=== PATIENT | female | born 1945 | race Caucasian/White ===

== ENCOUNTER 2020-06-06 16:14 | Emergency (ER) | payer MEDICARE, SELFPAY ==
[2020-06-06 16:49] VITALS: BP 130/74; PULSE 85; RESP 18; TEMP 36.6; O2SAT 96; BMI 42.0
[2020-06-06 17:57] VITALS: BP 129/79; PULSE 86; RESP 18; TEMP 36.7; O2SAT 96
--- NOTE | 2020-06-06 18:02 | PC.NURSE ---
patient a&ox3, neuro intact, vss, pt states she was moving a large chair and lost her balance and fell, unsure if she had loc or not she just remembers falling then seeing lots of blood, pt has a posterior head lac not currently bleeding, pt awaits provider, will continue to monitor.
--- NOTE | 2020-06-06 18:45 | CT_ITS ---
EXAMINATION: CT HEAD WITHOUT CONTRAST CLINICAL INFORMATION: Pain after fall. COMPARISON: None. TECHNIQUE: Contiguous helical images of the brain were obtained without IV contrast. Multiplanar reconstructions were performed. DLP: 702 mGy-cm. FINDINGS: There are no pathologic extra-axial fluid collections. The lateral, third, fourth ventricles are nondilated and concordant with the appearance of the sulci. There is no evidence for acute intraparenchymal hemorrhage or infarct. There is neither mass nor mass effect. There is no shift of midline structures. The paranasal sinuses and mastoid air cells are clear. There are no osseous lesions. CT/CT head/brain wo con IMPRESSION: No evidence for acute intracranial injury. Automated exposure control (Care Dose) Adjustment of the mA and/or kv according to patient size (this includes techniques or standardized protocols for targeted exams where dose is matched to indication / reason for exam; i.e. extremities or head).
--- NOTE | 2020-06-06 18:48 | ED_ITS ---
HPI - General Adult General Chief complaint: Fall Stated complaint: fall Time Seen by Provider: 06/06/20 18:34 History of Present Illness HPI narrative: 74-year-old female who presents to the emergency department for evaluation of fall and head injury. The patient states that she has trouble with her balance is not uncommon for her lose her balance and fall. She states that around 2:30 p.m. she lost her balance and fell backwards striking her head on a shelf. She is uncertain if she had any loss of consciousness. She was bleeding from her scalp. She states that she was seen at her doctor's office and was referred to emergency department for further evaluation of her head inju ry. She states since the fall she has had a mild headache which she describes as a constant, pressure which is elgn-yr-pusiyrwd in intensity, she denied nausea, vomiting, numbness, weakness associated with her headache. The patient states that her last tetanus shot was greater than 5 years prior. She states that she was not ill in any way prior to losing her balance. Related Data Allergies Allergy/AdvReac Type Severity Reaction Status Date / Time codeine [CODEINE] Allergy Intermediate NAUSEA & Unverified 03/24/20 16:34 VOMITING oxycodone [From PERCOCET] Allergy Intermediate NAUSEA & Unverified 03/24/20 16:34 VOMITING penicillin V Allergy Unknown GI cramps Unverified 09/30/19 00:00 Penicillins AdvReac Intermediate ABD. PAIN Unverified 03/24/20 16:34 EGGS Allergy Unknown Uncoded 08/20/14 00:00 eggs AdvReac Unknown GI cramps Uncoded 09/30/19 00:00 Review of Systems Review of Systems: Yes all other systems are reviewed and are negative Constitutional: Constitutional: Reports as per HPI Eyes: Eyes: Reports as per HPI ENT: Reports as per HPI Cardiovascular: Cardiovascular: Reports as per HPI Respiratory: Respiratory: Reports as per HPI Gastrointestinal: Gastrointestinal: Reports as per HPI Genitourinary: Genitourinary: Reports as per HPI Musculoskeletal: Musculoskeletal: Reports as per HPI Integumentary/Breasts: Skin/Breast: Reports as per HPI Neurologic: Reports as per HPI and Reports Abnormal speech present Psychiatric: Psychiatric: Reports as per HPI Allergic/Immunologic: Allergic/Immunologic: Reports as per HPI [facility] Past Medical History Medical History Depression Surgical History H/O section History of hysterectomy Hx of tonsillectomy Social History Social History Alcohol intake: never Smoked in Last 30 Days: No Use of substances other than those prescribed or required for medical reasons: No Advance Directives: No Advance Directives Information Provided: Yes Physical Exam Vital Signs: Vital Signs: Last Vital Signs Temp 98.1 F 06/06/20 17:57 Pulse 86 06/06/20 17:57 Resp 18 06/06/20 17:57 BP 129/79 06/06/20 17:57 Pulse Ox 96 06/06/20 17:57 Body Mass Index 42.0 Const: General: cooperative, no acute distress, alert and awake Orientation/consciousness: oriented to person and oriented to place Limitations: no limitations HENMT: Head: Yes normocephalic and Yes other (The subdural hematoma, dried blood in the patient's hair ) Ears: external ears normal Eyes: General: appearance normal, both eyes and all related structures Periorbital: periorbital findings normal Eyelids: Yes eyelids normal Conjunctivae: conjunctivae normal Sclerae: sclerae normal Corneas: corneas normal Pupils: Equal, round and reactive pupils present Direct Ophthalmoscopy: normal light reflex Neck: Neck: Yes normal visual inspection and Yes supple Lymphatic: no lymphadenopathy noted Chest: Chest palpation & inspection: normal inspection of the chest and normal palpation of entire chest wall Resp: Effort & Inspection: normal respiratory effort, abnormal respiratory pattern, no audible wheezes and no respiratory distress Auscultation: clear to auscultation bilaterally, no crackles, no rales, no rhonchi and no wheezes Cardio: Rate: regular rate Rhythm: regular rhythm Heart sounds: S1 normal heart sound present, S2 normal heart sound present and Murmur heart sound present GI: Inspection: No distended Palpation (GI): Soft to palpation, nontender, no guarding and No hepatosplenomegaly present Auscultation: normal bowel sounds : General: Yes no CVA tenderness Back/Spine/Pelvis: Back: no CVA tenderness Skin: General skin exam: no rashes or lesions noted Lesions: no lesions Rashes: no rashes Wounds: no wounds Neuro: General: oriented to person and oriented to place Cranial nerves: Yes CN's II-XII intact bilaterally and Yes Equal, round and reactive pupils present Cognition (Neuro): normal cognition Speech: Abnormal speech present Motor exam (neuro): 5/5 motor strength present throughout Extrem: General: Yes normal to inspection, Yes full ROM, Yes no pedal edema and Yes no calf tenderness Psych: Appearance: grossly normal Mental Status: mental status grossly normal Speech and movement: Clear speech present Affect: normal affect Thought process: Normal thought process present Course Course Course Narrative: 74-year-old female who presents emergency department for evaluation of a head injury that occurred around 2:30 p.m., patient does have dry blood on her scalp with no obvious laceration, she has had a ilul-lg-[id number] headache since the fall. Her neurologic exam is normal. I ordered a CT scan of the patient's head. She has no neck tenderness and I do not think that she has any distracting injuries therefore did not order a CT cervical spine. Patient was ordered to get a Tdap. 2025: CT scan of the patient's head revealed no acute findings. I went into the room to discuss this with the patient that she had left. The patient was in the waiting room and I did discuss the CT scan findings with the patient. The patient had called for her ride and she did not want to wait for printed instructions so I gave her verbal instructions. I told her that she should watch for signs of delayed bleeding which would include worsening headaches, nausea, vomiting, weakness, loss of balance. She is advised to take Tylenol for pain and use ice on her scalp to help reduce pain and swelling. I told her that if her scalp bleeds again she should return to the emergency department for evaluation. Discharge Plan Discharge Clinical Impression: CHI (closed head injury) Qualifiers: Encounter type: initial encounter Qualified Code(s): S09.90XA - Unspecified injury of head, initial encounter Fall Qualifiers: Encounter type: initial encounter Qualified Code(s): W19.XXXA - Unspecified fall, initial encounter Abrasion of scalp Qualifiers: Encounter type: initial encounter Qualified Code(s): S00.01XA - Abrasion of scalp, initial encounter Patient Disposition: Home, Self-Care Additional Instructions: The patient was given verbal instructions as documented in the chart
--- NOTE | 2020-06-06 19:04 | PC.NURSE ---
pt medicATED PER ORDER
--- NOTE | 2020-06-06 19:13 | PC.NURSE ---
patients posterior head was cleaned from blood, there is a small abrasion as well as an approx 1mm scrape/area that was previously bleeding, pt was medicated per order and is awaiting ct scan, will continue to monitor.
--- NOTE | 2020-06-06 20:26 | PC.NURSE ---
this nurse went into the patients room to obtain vitals, pt was not found in room and was seen by another nurse ambulating down the [place], the patient was looked for but has not been found.
== END 2020-06-06 20:40 | disposition home or self-care (01) ==
PROVIDERS: Emergency Provider Emergency Medicine Emergency Medical Services; PCP Internal Medicine
DX: S09.90XA Unspecified injury of head, initial encounter (principal); S00.01XA Abrasion of scalp, initial encounter; G44.309 Post-traumatic headache, unspecified, not intractable; M54.2 Cervicalgia; W01.0XXA Fall on same level from slipping, tripping and stumbling without subsequent striking against object, initial encounter; Y93.01 Activity, walking, marching and hiking; Y92.9 Unspecified place or not applicable; Y99.9 Unspecified external cause status
CPT/HCPCS: 70450; 90471; 90715; 99284

== ENCOUNTER 2020-08-31 09:57 | Outpatient (REF) | payer MEDICARE, SELFPAY ==
--- NOTE | ~2020-08-31 | MM_ITS ---
EXAMINATION: BONE DENSITOMETRY CLINICAL INDICATION: Osteopenia. COMPARISON: Previous BD dated 09/03/2017 and baseline BD dated 01/24/2001. TECHNIQUE: Using a [employer] DXA System (software version: 13.1) manufactured by [employer], dual-energy x-ray absorptiometry was performed of the lumbar spine and left hip. The images are of good technical quality. Summary results are attached. FINDINGS: AP SPINE L1-L4: Current: BMD 1.137 g/cm2, Z-score 0.4, T-score -0.4, normal, 3.2% decrease from previous, 7.9% increase from baseline (<5% change is not significant). Prior: BMD 1.174 g/cm2. Baseline: BMD 1.054 g/cm2. LEFT FEMUR, NECK: Current: BMD 0.875 g/cm2, Z-score 0.0, T-score -1.2, osteopenia. Prior: BMD 0.855 g/cm2. Baseline: BMD 0.893 g/cm2. LEFT FEMUR, TOTAL: Current: BMD 0.934 g/cm2, Z-score 0.4, T-score -0.6, normal, 0.2% decrease from previous, 1.3% decrease from baseline (<5% change is not significant). Prior: BMD 0.936 g/cm2. Baseline: BMD 0.946 g/cm2. IDENTIFIED RISK FACTORS: Early menopause, hysterectomy, osteoporosis, recurrent falls, right oophorectomy, secondary osteoporosis. HISTORY OF FRACTURE: No insufficiency fracture reported. MEDICATIONS: None listed. MM/XR DEXA axial skeleton IMPRESSION: 1. DIAGNOSIS: Osteopenia based on the lowest T-score value of -1.2 in the femoral neck applying World Health Organization criteria. 2. 10-YEAR FRACTURE RISK PREDICTION, FRAX: Major osteoporotic fracture (clinical spine, forearm, hip or shoulder) 9.0%. Hip fracture 1.3%. 3. Treatment Recommendations: NOF guidelines recommend consideration for treatment in postmenopausal women and men age 50 and older presenting with the following: -A hip or vertebral (clinical or morphometric) fracture. -T-score less than or equal to -2.5 at the femoral neck or spine after appropriate evaluation to exclude secondary causes. -Low bone mass at the hip or spine and a 10-year fracture probability by FRAX of greater than or equal to 3% for hip fracture or greater than or equal to 20% for major osteoporotic fracture based on the [place] adapted WHO algorithm. 4. Other Recommendations: All treatment decisions require clinical judgment and consideration of individual patient factors, including patient preferences, comorbidities, previous drug use, risk factors not captured in the FRAX model (e.g. frailty, falls, vitamin D deficiency, increased bone turnover, interval significant decline in bone density) and possible under or overestimation of fracture risk by FRAX. Additional medical evaluation for secondary cause of low bone mineral density may be appropriate. FUTURE SCAN RECOMMENDATION: People with diagnosed cases of osteoporosis or at high risk for fracture should have regular bone mineral density tests. For patients eligible for Medicare, routine testing is allowed once every 2 years. The testing frequency can be increased to one year for patients who have rapidly progressing disease, those who are receiving or discontinuing medical therapy to restore bone mass, or have additional risk factors.
--- NOTE | ~2020-08-31 | MM_ITS ---
EXAMINATION: MM SCREENING DIGITAL BREAST TOMOSYNTHESIS, BILATERAL CLINICAL INFORMATION: Screening. Asymptomatic. The lifetime risk of breast cancer based on the Tyrer-Cuzick Model is 2%. COMPARISON: Mammography: 03/20/2019, 03/12/2018, 11/01/2016 TECHNIQUE: Digital breast tomosynthesis is performed in both the craniocaudal and mediolateral oblique views along with computer-aided detection (CAD). Synthesized 2D images are generated from the tomosynthesis. FINDINGS: There are scattered areas of fibroglandular density (ACR BI-RADS breast composition Category b). Parenchymal pattern is similar to prior studies. There is biopsy clip marker again noted anterior 6:30 o'clock right breast. Dermal lesion again seen posterior 6:00 right breast. Neither breast shows interval mass or architectural abnormality or abnormal calcifications. No significant changes. MM/MM tomosynthesis screening BI IMPRESSION: No mammographic evidence of malignancy. ASSESSMENT: BI-RADS 2: Benign RECOMMENDATION: Routine annual mammography screening. This patient's information was entered into a reminder system with a target due date for their next mammogram.
== END 2020-08-31 09:58 | disposition home or self-care (01) ==
LOC: HO.MAMMO 09:57
PROVIDERS: PCP Internal Medicine; Visit Provider Internal Medicine
DX: Z12.31 Encounter for screening mammogram for malignant neoplasm of breast (principal); M85.852 Other specified disorders of bone density and structure, left thigh; Z78.0 Asymptomatic menopausal state; Z90.710 Acquired absence of both cervix and uterus; Z90.721 Acquired absence of ovaries, unilateral; Z91.81 History of falling
CPT/HCPCS: 77063; 77067; 77080

== ENCOUNTER 2020-09-01 09:04 | Outpatient (REF) | payer MEDICARE, SELFPAY ==
[2020-09-01 11:12] LABS: MANUAL DIFF FLAG NO
[2020-09-01 11:21] LABS: Basophils Absolute Auto 0.1 X10*3/uL (0.0-0.2); Basophils Percent Auto 1.2 % (0-2); Eosinophils Absolute Auto 0.2 X10*3/uL (0.0-0.4); Eosinophils Percent Auto 3.4 % (0-4); Hematocrit 38.9 % (37-47); Hemoglobin 12.6 g/dl (12.0-16.0); Imm Gran Abs Auto 0.03 X10*3/uL (0.00-0.03); Imm Gran Pct Auto 0.5 % (0.0-0.4); Lymphocytes Absolute Auto 1.4 X10*3/uL (1.2-4.9); Lymphocytes Percent Auto 24.3 % (20-40); Mean Corpuscular HGB Conc 32.4 g/dl (31.0-35.0); Mean Corpuscular Hemoglobin 28.6 pg (27.0-33.0); Mean Corpuscular Volume 88.4 fL (80-98); Mean Platelet Volume 10.8 fL (9.4-12.3); Monocytes Absolute Auto 0.3 X10*3/uL (0.1-1.2); Monocytes Percent Auto 5.1 % (2-11); Neutrophils Absolute Auto 3.8 X10*3/uL (2.0-8.3); Neutrophils Percent Auto 65.5 % (45-73); Platelet Count 237 X10*3/uL (160-400); Red Cell Distribution Width 14.4 % (11.0-16.0); White Blood Count 5.8 X10*3/uL (4.8-10.8)
[2020-09-01 11:59] LABS: Alanine Aminotransferase 10 U/L (0-31); Anion Gap 12 (12-20); Aspartate Amino Transferase 14 U/L (5-31); Blood Urea Nitrogen 21 mg/dL (9-16); Calcium 8.9 mg/dL (8.4-10.2); Carbon Dioxide 28 mmol/L (22-29); Chloride 106 mmol/L (96-108); Cholesterol 256 mg/dL; Estimated Glomerular Filt Rate 47; Glucose Fasting 94 mg/dL (60-99); HDL Cholesterol 64 mg/dL; LDL Cholesterol Calculated 167 mg/dl; Potassium 4.5 mmol/L (3.3-5.1); Sodium 141 mmol/L (135-145); Triglycerides 125 mg/dL
[2020-09-01 12:03] LABS: Vitamin D 25-OH Total 31.2 ng/mL (>30)
== END 2020-09-01 09:05 | disposition home or self-care (01) ==
LOC: HO.HMGCLDS 09:04
PROVIDERS: PCP Internal Medicine; Visit Provider Internal Medicine
DX: Z00.01 Encounter for general adult medical examination with abnormal findings (principal); D12.6 Benign neoplasm of colon, unspecified; E78.5 Hyperlipidemia, unspecified; I10 Essential (primary) hypertension
CPT/HCPCS: 36415; 80048; 80061; 82306; 84450; 84460; 85025

== ENCOUNTER 2023-01-04 07:21 | Outpatient (REF) | payer MEDICARE, SELFPAY ==
[2023-01-04 11:27] LABS: MANUAL DIFF FLAG NO
[2023-01-04 11:43] LABS: Basophils Absolute Auto 0.1 X10*3/uL (0.0-0.2); Eosinophils Absolute Auto 0.1 X10*3/uL (0.0-0.4); Eosinophils Percent Auto 1.8 % (0-4); Hematocrit 40.6 % (37.0-47.0); Imm Gran Abs Auto 0.05 X10*3/uL (0.00-0.03); Imm Gran Pct Auto 0.7 % (0.0-0.4); Lymphocytes Absolute Auto 1.7 X10*3/uL (1.2-4.9); Lymphocytes Percent Auto 25.8 % (20-40); Mean Corpuscular Hemoglobin 27.6 pg (27.0-33.0); Mean Corpuscular Volume 86.2 fL (80.0-98.0); Mean Platelet Volume 10.8 fL (9.4-12.3); Monocytes Absolute Auto 0.4 X10*3/uL (0.1-1.2); Neutrophils Absolute Auto 4.3 x10*3/uL (2.0-8.3); Neutrophils Percent Auto 64.7 % (45-73); Platelet Count 277 X10*3/uL (160-400); Red Blood Count 4.71 X10*6/uL (4.20-5.50); Red Cell Distribution Width 14.9 % (11.0-16.0); White Blood Count 6.7 X10*3/uL (4.8-10.8)
[2023-01-04 12:14] LABS: Alanine Aminotransferase 15 U/L (0-31); Albumin Level 3.9 g/dL (3.5-5.0); Alkaline Phosphatase 76 U/L (39-117); Anion Gap 14 (12-20); Aspartate Amino Transferase 17 U/L (5-31); Bilirubin Total 1.2 mg/dL (0.0-1.0); Blood Urea Nitrogen 17 mg/dL (9-16); Calcium 9.6 mg/dL (8.4-10.2); Carbon Dioxide 26 mmol/L (22-29); Chloride 104 mmol/L (96-108); Cholesterol 207 mg/dL; Estimated Glomerular Filt Rate 56; Glucose Fasting 104 mg/dL (60-99); HDL Cholesterol 53 mg/dL; LDL Cholesterol Calculated 129 mg/dl; Potassium 4.9 mmol/L (3.3-5.1); Sodium 139 mmol/L (135-145); Total Protein 7.2 g/dL (6.5-8.0); Triglycerides 126 mg/dL
[2023-01-04 12:31] LABS: TSH reflex Free T4 2.72 uIU/mL (0.32-4.0); Vitamin D 25-OH Total 38.5 ng/mL (>30)
[2023-01-04 12:44] LABS: Folate 9.6 ng/mL (> or = 4.0); Vitamin B12 331 pg/mL (200-900)
== END 2023-01-04 07:22 | disposition home or self-care (01) ==
LOC: HO.HMGCLDS 07:21
PROVIDERS: PCP Internal Medicine; Visit Provider Internal Medicine
DX: Z00.01 Encounter for general adult medical examination with abnormal findings (principal); E66.9 Obesity, unspecified; E78.5 Hyperlipidemia, unspecified; F32.9 Major depressive disorder, single episode, unspecified; G89.29 Other chronic pain; M85.852 Other specified disorders of bone density and structure, left thigh; R26.89 Other abnormalities of gait and mobility; R29.6 Repeated falls; R42 Dizziness and giddiness; Z78.0 Asymptomatic menopausal state
CPT/HCPCS: 36415; 80053; 80061; 82306; 82607; 82746; 84443; 85025

== ENCOUNTER 2023-03-27 08:27 | Outpatient (AMB) | payer MEDICARE, SELFPAY ==
--- NOTE | 2023-03-27 08:46 | A.OFFPC_ITS ---
Vital Signs 03/27/23 08:47 Height 5 ft 2 in Weight 212 lb BMI 38.8 BP 112/70 Blood Pressure Location Lt brachial Position Sitting Pulse 75 Pulse Source Pulse Oximeter Pulse Oximetry (%) 97 Oxygen Delivery Method Room Air Intake Visit Reasons: Annual PE Intake Note: Pt is here today for her PE Allergies egg Allergy (Unknown, Verified 03/27/23 09:03) gi cramps penicillin V Allergy (Unknown, Verified 03/27/23 09:03) GI cramps codeine [CODEINE] Adverse Reaction (Intermediate, Verified 03/27/23 09:03) NAUSEA & VOMITING oxycodone [From PERCOCET] Adverse Reaction (Intermediate, Verified 03/27/23 09:03) NAUSEA & VOMITING Penicillins Adverse Reaction (Intermediate, Verified 03/27/23 09:03) ABD. PAIN Medication List - Last Reconciled 03/27/23 by Annie Ulrich MD No Known Home Meds Tobacco use date assessed: 03/27/23 Fall risk assessment: 1 Fall in past year Last assessed Fall Risk: 03/27/23 Dental Screening Dental Screen Date: 03/27/23 Did you have a dental visit in the last 12 months?: No Was dental information given to patient?: Patient declined HPI Annual PE HPI Details 77-year-old lady here today for her phys ical exam. She has osteopenia in her left femoral neck, last seen on bone density in 2020, no history of fractures. Up To date with her screening mammogram, last done 2021, due again later this year. She is up-to-date with her screening colonoscopy done by Dr. Paige in 2016 due again in 2026. Already received her Prevnar 20, COVID vaccines, due for her booster and flu shot, up-to-date with Tdap, never had shingles vaccine. She is of company today by her spouse who states that patient's memory has been declining, requesting a referral to see neurology for evaluation for possible beginning dementia. [facility] Medical History (Updated 03/27/23 @ 09:41 by Annie Ulrich MD) Mammogram declined Colonoscopy refused COVID-19 vaccine dose declined Refused influenza vaccine Weakness generalized Gait instability Chronic hip pain, bilateral Keeps losing balance Memory changes Obesity (BMI 30-39.9) Postmenopause Intolerance to BiPAP/CPAP Obstructive sleep apnea Daren of eye Osteoarthritis Tubular adenoma of colon Menopause Osteopenia of left hip Breast cancer screening by mammogram Positional lightheadedness Recurrent falls Dyslipidemia Depression Surgical History History of hysterectomy Hx of tonsillectomy H/O section Family History Father Tuberculosis Substance use disorder Mother Diabetes mellitus Maternal Grandmother Diabetes mellitus Maternal Grandfather Cancer Son No problems noted. Daughter No problems noted. Social History Housing: Apartment Alcohol intake: never Patient Tobacco Use Status: Former Tobacco user e-Cigarette/Vaping Use: Never Used Current occupational status: retired Cognitive needs: No Hearing needs: No Vision needs: Yes Questionnaire PHQ-9 Over the last 2 weeks, how often have you been bothered by any of the following problems? 1. Little interest or pleasure in doing things: several days 2. Feeling down, depressed, or hopeless: several days 3. Trouble falling or staying asleep, or sleeping too much: not at all 4. Feeling tired or having little energy: several days 5. Poor appetite or overeating: not at all 6. Feeling bad about yourself - or that you are a failure or have let yourself or your family down: not at all 7. Trouble concentrating on things, such as reading the newspaper or watching television: not at all 8. Moving or speaking so slowly that other people could have noticed. Or the opposite - being so fidgety or restless that you have been moving around a lot more than usual: not at all 9. Thoughts that you would be better off or of hurting yourself in some w ay: not at all Total score: 3 Depression Screening Interpretation: Positive Depression Screening Follow-up: Existing condition and Declines treatment Source: Developed by Drs. Sumeet Mendoza, Twyla Roth, Sav Vazquez and colleagues, with an educational marion from [email or web address]. Thrive Questionnaire Date Thrive assessed: 03/27/23 I am a: Patient What is your living situation today?: I have a steady place to live Within the past 12 months, did the food you bought not last and you didn't have the money to get more?: Never true Within the past 12 months, did you worry whether your food would run out before you got money to buy more?: Never true Do you have trouble paying for medicines?: No Do you have trouble getting transportation to medical appointments?: No Do you have trouble paying your heating and electricity bill?: No Do you have trouble taking care of your child, family member or friend?: No Do you have trouble with day-to-day activities such as bathing, preparing meals, shopping, managing finances, etc.?: No Are you currently unemployed and looking for a job?: No Are you interested in more education?: No AUDIT C Alcohol Use Questionnaire (AUDIT-C) 1. How often do you have a drink containing alcohol?: Never Total Score: 0 Review of Systems Const Reports no additional complaints Eyes Details: Followed by Dr. Sandoval Denies change in vision ENT Reports dizziness (When getting up from a sitting or lying position), Denies nasal congestion, Denies nasal discharge and Denies sore throat Card Denies palpitations and Denies dyspnea Resp Denies chest congestion, Denies cough and Denies dyspnea GI Denies abdominal pain, Denies change in bowel habits and Denies heartburn Denies hematuria, Denies urinary frequency, Denies difficulty voiding, Denies dysuria, Denies urinary incontinence, Denies urinary hesitancy and Denies urinary urgency Musc Reports abnormal gait (Unsteady gait), Reports arthralgias, Denies joint swelling, Denies loss of height and Reports stiffness Skin/Breast Denies lesions and Denies unusual bruising Neuro Reports abnormal gait (Unsteady gait), Reports dizziness (When getting up from a sitting or lying position), Denies focal weakness and Denies seizure-like activity Psych Reports as per HPI (Does not want to get further treatment or see a therapist) Endo Denies polydipsia, Denies polyuria and Denies palpitations Lorenzo/Lymph Denies easy bruising Aller/Immun Reports no additional complaints Physical exam (Primary Care) Vital Signs: Last Vital Signs Pulse 75 03/27/23 08:47 BP 112/70 03/27/23 08:47 Pulse Ox 97 03/27/23 08:47 Oxygen Delivery Method Room Air 03/27/23 08:47 BMI result Body Mass Index 38.8 BMI Assessment/Plan discussion: High BMI High, discussed plan: lifestyle, weight reduction, dietary and physical activity Tobacco/Smoking Status: Tobacco use Status Tobacco use date assessed 03/27/23 03/27/23 08:52 Patient Tobacco Use Status Former Tobacco user 03/27/23 08:52 e-Cigarette/Vaping Use Never Used 03/27/23 08:52 PHQ-9: PHQ-9 Score PHQ-9: Total score 3 03/31/23 23:25 Depression Screening Interpretation: Positive Depression Screening Follow-up: Existing condition and Declines treatment Thrive Assessment: Date of Thrive Assessment Date Thrive assessed 03/27/23 03/31/23 23:25 Const Other: Alert oriented x3, obese, ambulatory with assistance of a walker, accompanied by spouse Nutritional Appearance: obese Orientation/consciousness: patient oriented x3 HENMT Head: Yes normocephalic Ears: external ears normal, TM's normal bilaterally and EAC's normal General nose exam: Normal external nose present and No nasal discharge present Face and sinus: Yes face symmetric Mouth: Normal oral and palatal mucosa present and moist mucous membranes Eyes General: appearance normal, both eyes and all related structures Neck Neck: Yes full ROM, Yes no lymphadenopathy and Yes supple Chest Other: Refused exam Resp Effort & Inspection: normal respiratory effort and able to speak in complete sentences Auscultation: clear to auscultation bilaterally Cardio Other: S1-S2 present regular rate and rhythm GI Inspection: Yes obesity Palpation (GI): Soft to palpation, nontender, no guarding and no masses Auscultation: normal bowel sounds General: Yes no CVA tenderness Back/Spine/Pelvis Back: no CVA tenderness and No back tenderness Skin General skin exam: no rashes or lesions noted Neuro General: patient oriented x3, tone normal, moves all extremities, no focal motor deficits and CN's II-XI intact bilaterally Gait exam (Neuro): Wide-based gait present Extrem General: Yes full ROM, Yes no joint enlargement and Yes no calf tenderness Psych Appearance: grossly normal and well kempt Mental Status: mental status grossly normal Speech and movement: Normal speech and movement present Affect: normal affect Attitude: cooperative Thought process: Normal thought process present Results Reviewed Results Reviewed: ENTERED: 01/04/23 [facility]: ORDERED: CMP Fast, Lipid Panel, Vitamin D 25-OH, TSH Rflx Test Result Flag Reference Site Sodium 139 135-145 mmol/L Potassium 4.9 3.3-5.1 mmol/L CL 104 96-108 mmol/L CO2 26 22-29 mmol/L Gap 14 12-20 BUN 17 H 9-16 mg/dL Creat 0.97 0.5-1.4 mg/dL EGFR 56 NOTE: For -[place] individuals, multiply the result by 1.210. Chronic Kidney Disease: Estimated GFR < 60 mL/min/1.73m2 Severe Kidney Disease: Estimated GFR < 15 mL/min/1.73m2 FBS 104 H 60-99 mg/dL A fasting glucose from 100-125 mg/dl is considered impaired (pre-diabetes). CA 9.6 # 8.4-10.2 mg/dL Total Bili 1.2 H 0.0-1.0 mg/dL AST (GOT) 17 5-31 U/L ALT (GPT) 15 0-31 U/L Protein, Total 7.2 6.5-8.0 g/dL Alb 3.9 3.5-5.0 g/dL Triglyceride 126 mg/dL Desirable Triglyceride: less than 150 mg/dL Borderline High Triglyceride 150-199 mg/dL High Triglyceride: 200-499 mg/dL Very High Triglyceride: greater than or equal to 5OO mg/dL Chol 207 mg/dL Desirable Cholesterol: less than 200 mg/dL Borderline High Cholesterol: 200-239 mg/dL High Cholesterol: greater than 239 mg/dL LDL Calculated 129 mg/dl Desirable LDL: less than 100 mg/dL Near Optimal/Above Optimal LDL: 110-129 mg/dL Borderline High LDL: 130-159 mg/dL High LDL: 160-189 mg/dL Very High LDL: greater than or equal to 190 mg/dL HDL 53 mg/dL Desirable HDL: greater than 40 mg/dL Note: This HDL assay may give artificially low results in patients with liver disease. Alk Phos 76 39-117 U/L Vit D 25-OH Tot 38.5 >30 ng/mL Health Based Reference Values* < 20 ng/mL Deficient 20-30 ng/mL Insufficient > 30 ng/mL Sufficient *Vivian LEWIS. N Engl J Med. 2007;357:266-280 Care must be taken in interpreting Vitamin D results from different laboratories and methodologies. Published data demonstrated that results from patients undergoing hemodialysis may show a negative bias when tested with various automated 25-OH vitamin D assays when compared to LC-MS/MS. When testing samples from patients whose predominant f orm of Vitamin D is Vitamin D2, such as patients receiving Vitamin D2 supplementation, results that are subtherapeutic should be confirmed with another method such as LC-MS/MS. TSH 2.72 0.32-4.0 uIU/mL ENTERED: 01/04/[address] [facility] [address]: ORDERED: CBC Auto Diff Test Result Flag Reference Site WBC 6.7 4.8-10.8 X10*3/uL RBC 4.71 4.20-5.50 X10*6/uL HGB 13.0 12.0-16.0 g/dl HCT 40.6 37.0-47.0 % MCV 86.2 80.0-98.0 fL MCH 27.6 27.0-33.0 pg MCHC 32.0 31.0-35.0 g/dl RDW 14.9 11.0-16.0 % PLT 277 160-400 X10*3/uL Assessment and Plan Assessment & Plan (1) Annual visit for general adult medical examination with abnormal findings: Code(s): Z00.01 - Encounter for general adult medical examination with abnormal findings Plan: Reviewed results of recent labs with patient. Recommended dental visit every [address] Sandoval regularly for her eye exam. Take adequate calcium in diet and vitamin-D 3 at 2000 IU per cap once a day, in addition to weight- bearing exercises to help maintain good muscle tone and weight control. Patient refusing to do any further screening for colonoscopy mammogram or bone density, and does not want to get any more vaccinations. (2) Memory changes: Code(s): R41.3 - Other amnesia Plan: Has been having changes in her memory, forgetting things/dates, which others have been noticing already. 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 Code(s): H35.369 - Drusen (degenerative) of macula, unspecified eye (6) Osteoarthritis: Code(s): M19.90 - Unspecified osteoarthritis, unspecified site (7) Osteopenia of left hip: Code(s): M85.852 - Other specified disorders of bone density and structure, left thigh (8) Gait instability: Code(s): R26.81 - Unsteadiness on feet (9) Depression: Comment: Declines taking any medication or seeing a therapist Code(s): F32.9 - Major depressive disorder, single episode, unspecified Plan: Patient refusing to take any medications or referral for counseling (10) Refused influenza vaccine: Code(s): Z28.21 - Immunization not carried out because of patient refusal (11) COVID-19 vaccine dose declined: Code(s): Z28.21 - Immunization not carried out because of patient refusal (12) Colonoscopy refused: Code(s): Z53.20 - Procedure and treatment not carried out because of patient's decision for unspecified reasons (13) Mammogram declined: Code(s): Z53.20 - Procedure and treatment not carried out because of patient's decision for unspecified reasons (14) Obesity (BMI 30-39.9): Code(s): E66.9 - Obesity, unspecified (15) Advanced directives, counseling/discussion: Code(s): Z71.89 - Other specified counseling Plan: Initiated the conversation about Advanced Directives. Advanced Directives help patients prepare for current and future decisions about their medical treatment and place of care. Discussed with patient that it is a process where a patients current condition and prognosis are reviewed, their wishes for information regarding their illness are elicited, and likely medical dilemmas are presented and options discussed. Healthcare proxy and MOLST form completed today. These forms can be amended as needed, reviewed yearly and make changes as needed Orders: Referrals Neurology Referral R41.3 - Other amnesia Coding Level of Care Code Est Pt Prev Care >65y(14894) Diagnoses Annual visit for general adult medical examination with abnormal findings Z00.01 Memory changes R41.3 Intolerance to BiPAP/CPAP Obstructive sleep apnea G47.33 Drusen of eye H35.369 Osteoarthritis M19.90 Osteopenia of left hip M85.852 Gait instability R26.81 Depression F32.9 Refused influenza vaccine Z28.21 COVID-19 vaccine dose declined Z28.21 Colonoscopy refused Z53.20 Mammogram declined Z53.20 Obesity (BMI 30-39.9) E66.9 Advanced directives, counseling/discussion Z71.89 Additional Codes PHQ-9 - 71425 - PHQ-9 Billing: ([id number])
[2023-03-27 08:47] VITALS: BP 112/70; PULSE 75; O2SAT 97; BMI 38.8
== END 2023-03-27 09:49 | disposition home or self-care (01) ==
PROVIDERS: Visit Provider Internal Medicine
DX: Z00.00 Encounter for general adult medical examination without abnormal findings (principal); R41.3 Other amnesia; G47.33 Obstructive sleep apnea (adult) (pediatric); F32.9 Major depressive disorder, single episode, unspecified; M19.90 Unspecified osteoarthritis, unspecified site; H35.369 Drusen (degenerative) of macula, unspecified eye; M85.852 Other specified disorders of bone density and structure, left thigh; R26.81 Unsteadiness on feet; Z28.21 Immunization not carried out because of patient refusal; Z53.20 Procedure and treatment not carried out because of patient's decision for unspecified reasons; E66.9 Obesity, unspecified; Z71.89 Other specified counseling
CPT/HCPCS: 99397

== ENCOUNTER → 2023-10-14 12:28 | Outpatient (BNVA) | payer MEDICARE, SELFPAY | PROVIDERS: PCP Internal Medicine; Visit Provider Psychiatry & Neurology Neurology ==

== ENCOUNTER 2023-11-19 13:21 | Emergency (ER) | payer MEDICARE, SELFPAY ==
[2023-11-19 13:52] VITALS: BP 121/68; PULSE 65; RESP 16; TEMP 36.5; O2SAT 95; BMI 37.2
--- NOTE | 2023-11-19 14:26 | ED.PSYCH ---
HPI - Psych General Chief Complaint: Psychiatric Symptoms Stated Complaint: SEC 12,SI W/PLAN PER EMS Time Seen by Provider: 11/19/23 14:02 Source: patient, EMS and police ( under section 12) Mode of arrival: EMS Limitations: no limitations History of Present Illness HPI Narrative: 77-year-old female with no significant past medical history patient had a previous evaluation in increasing cognitive deficits and depressive symptoms in the past patient was brought in by EMS under section 12 that was applied by the police for patient is gesturing SI, threatening to stab with a knife, patient in the emergency department declined any suicidal thought or attempt. Patient usually lives home functional use walker for ambulation home, patient lives home with her partner. Patient declined any visual or auditory hallucination. Related Data Home Medications ?Medication ?Instructions ?Recorded ?Confirmed bupropion HCl 300 mg 24 hr tablet, 300 mg PO QAM 10/14/23 extended release quetiapine 25 mg tablet 25 mg PO DAILY 10/14/23 sertraline 50 mg tablet 100 mg PO DAILY 10/14/23 Previous Rx's ?Medication ?Instructions ?Recorded nitrofurantoin 100 mg PO Q12H 7 days #14 caps 11/19/23 monohydrate/macrocrystals 100 mg capsule (Macrobid) Allergies Allergy/AdvReac Type Severity Reaction Status Date / Time egg Allergy Unknown gi cramps Verified 11/19/23 13:59 penicillin V Allergy Unknown GI cramps Verified 11/19/23 13:59 codeine [CODEINE] AdvReac Intermediate NAUSEA & Verified 11/19/23 13:59 VOMITING oxycodone [From PERCOCET] AdvReac Intermediate NAUSEA & Verified 11/19/23 13:59 VOMITING Penicillins AdvReac Intermediate ABD. PAIN Verified 11/19/23 13:59 Review of Systems Review of Systems: All other systems are reviewed and are negative Constitutional: Reports as per HPI and Reports no additional constitutional complaints Eyes: Reports as per HPI and Reports no additional eye complaints Reports system reviewed and no additional complaints, except as documented Cardiovascular: Reports as per HPI and Reports no additional cardiovascular complaints Respiratory: Reports as per HPI and Reports no additional respiratory complaints Gastrointestinal: Reports as per HPI and Reports no additional gastrointestinal complaints Genitourinary: Reports no additional female genitourinary complaints Musculoskeletal: Reports no additional musculoskeletal complaints Skin/Breast: Reports system reviewed and no additional complaints, except as docu Psychiatric: Reports no additional psychiatric complaints Endocrine: Reports no additional endocrine complaints Hematologic/Lymphatic: Reports no additional hematologic/lymphatic complaints Allergic/Immunologic: Reports no additional allergic/immunologic complaints Reports system reviewed and no additional complaints, except as documented and Reports Abnormal speech present [facility] Past Medical History Medical History Mammogram declined Colonoscopy refused COVID-19 vaccine dose declined Refused influenza vaccine Weakness generalized Gait instability Chronic hip pain, bilateral Keeps losing balance Memory changes Obesity (BMI 30-39.9) Postmenopause Intolerance to BiPAP/CPAP Obstructive sleep apnea Drusen of eye Osteoarthritis Tubular adenoma of colon Menopause Osteopenia of left hip Breast cancer screening by mammogram Positional lightheadedness Recurrent falls Dyslipidemia Depression Surgical History History of hysterectomy Hx of tonsillectomy H/O section Family History Family History Father Tuberculosis Substance use disorder Mother Diabetes mellitus Maternal Grandmother Diabetes mellitus Maternal Grandfather Cancer Son No problems noted. Daughter No problems noted. Social History Social History Housing: Apartment Alcohol intake: never Patient Tobacco Use Status: Former Tobacco user Smoked in Last 30 Days: No e-Cigarette/Vaping Use: Never Used Use of substances other than those prescribed or required for medical reasons: No Advance Directives: No Advance Directives Information Provided: Yes Current occupational status: retired Cognitive needs: No Hearing needs: No Vision needs: Yes Physical Exam Vital Signs: Vital Signs: Last Vital Signs Temp 97.7 F 11/19/23 13:52 Pulse 65 11/19/23 13:52 Resp 16 11/19/23 13:52 BP 121/68 11/19/23 13:52 Pulse Ox 95 11/19/23 13:52 O2 Del Method Room Air 11/19/23 13:52 BMI result Body Mass Index 37.2 Vital signs have been reviewed and appear to be correct. Blood pressure elevated. Heart rate normal. Respiratory rate normal. Temperature normal. Oxygen saturation normal. Appearance: Alert. Oriented X3. No acute distress. Head: Normal external exam. Normocephalic. Atraumatic. No Mcgowan signs noted. No raccoon eyes noted Eyes: PERRLA. EOMI. Conjunctiva and sclera normal. Eyelids normal. ENT: TM's Normal. Pharynx normal. Uvula midline. Moist mucous membranes. No trismus noted. No drooling noted. No muffled voice noted. Neck: Normal inspection. Neck supple. FROM. No adenopathy. Thyroid Normal. No meningeal signs. No neck mass noted. CVS: Normal heart rate and rhythm. Heart sound normal. No murmurs noted. Pulses normal throughout. Respiratory: No respiratory distress. Painless inspiration. Breath sounds normal. No wheezes/rales/rhonchi noted. Chest nontender. No accessory muscle usage noted or decreased air movement noted. Abdomen: Soft and nontender. Bowel sounds normal in all 4 quadrants. No distention noted. No organomegaly noted. No visible injury noted. Back: No CVA tenderness. Full range of motion noted. Skin: Skin warm and dry. Normal skin color. Normal skin turgor. No rashes/lesions/lacerations noted. Extremities: No lower extremity edema. Extremities exhibit normal range of motion. Extremities nontender. Neuro: Oriented X 3. Cranial nerve exam: II-XII are grossly intact No motor deficit. No sensory deficit. Reflexes normal. Patient Orientation: Person, Place, Time and Situation, okay hygiene and grooming. Fair eye contact, attentive, no tics or tremors. Level of Consciousness: Awake, Appropriate and Alert Patient Behavior: Appropriate, Guarded, Cooperative and Anxious Mood Description: Constricted, Blunted and Apprehensive Affect Description: Constricted, Blunted and Apprehensive Patient Cognition Impaired: No Ability to Follow Directions: Excellent Speech Pattern: Clear, Appropriate and Spontaneous Speech, nonpressured, spontaneous with regular rate and rhythm, normal volume and prosody. No dysarthria. Memory Description: Intact, Immediate Intact and Short Term Intact Hallucinations: None Delusions: Not Present Thought Process: Intact Thought Content: positive for Intact, positive for Logical, denies Suicidal Ideation and denies Homicidal Ideation. Depressive Symptoms: Not present. Judgement and Insight: Limited but adequate. Course Reevaluation(s) Reevaluation #1: labs was reviewed and unremarkable, patient medically cleared, Uncomplicated UTI will start the patient on Macrobid Given the patient's penicillin allergy. will start patient on physician observation. Time: 16:30 Reevaluation #2: physician observation ended now, patient had a fall care team evaluation I have re-interviewed the patient patient feels safe to be discharged home waiting for her significant other to give her a ride to home, no SI, no HI, no AVH. Time: 18:19 Medications Administered Discontinued Medications Generic Name Dose Route Start Last Admin Trade Name Freq PRN Reason Stop Dose Admin Nitrofurantoin Macrocrystals 100 mg 11/19/23 16:29 11/19/23 17:07 Nitrofurantoin Monohyd/M-Cryst 100 Mg Capsule PO 11/19/23 16:30 100 mg BID ONE Administration Medical Decision Making Differential Diagnosis Differential Diagnoses: The differential diagnosis associated with the presentation includes ( Medical clearance, electrolyte derangement, severe anemia, UTI, acute psychosis, depression with SI.) Admission/Observation Consideration of admission/observation: Escalation of care including admission/observation considered Lab Data MDM Lab Attestation statement: I reviewed the patient's lab results. 11/19/23 15:24 11/19/23 15:24 Labs: Lab Results 11/19/23 11/19/23 Range/Units 15:23 15:24 WBC 7.2 (4.8-10.8) X10*3/uL RBC 4.27 (4.20-5.50) X10*6/uL Hgb 12.5 (12.0-16.0) g/dl Hct 37.6 (37.0-47.0) % MCV 88.1 (80.0-98.0) fL MCH 29.3 (27.0-33.0) pg MCHC 33.2 (31.0-35.0) g/dl RDW 14.4 (11.0-16.0) % Plt Count 256 (160-400) X10*3/uL MPV 9.9 (9.4-12.3) fL Immature Gran % (Auto) 0.3 (0.0-0.4) % Neut % (Auto) 68.9 (45-73) % Lymph % (Auto) 22.1 (20-40) % Greene % (Auto) 4.5 (2-11) % Eos % (Auto) 3.1 (0-4) % Baso % (Auto) 1.1 (0-2) % Lymph # (Auto) 1.6 (1.2-4.9) X10*3/uL Greene # (Auto) 0.3 (0.1-1.2) X10*3/uL Eos # (Auto) 0.2 (0.0-0.4) X10*3/uL Baso # (Auto) 0.1 (0.0-0.2) X10*3/uL Abs Immat Gran (auto) 0.02 (0.00-0.03) X10*3/uL Absolute Neuts (auto) 4.9 (2.0-8.3) x10*3/uL Absolute Nucleated RBC 0.000 (0.0-0.012) X10*3/uL Nucleated RBC % (auto) 0.0 (0.0-0.2) /100WBC Sodium 139 (135-145) mmol/L Potassium 3.7 (3.3-5.1) mmol/L Chloride 105 (96-108) mmol/L Carbon Dioxide 22 (22-29) mmol/L Anion Gap 16 (12-20) BUN 16 (9-16) mg/dL Creatinine 1.12 (0.5-1.4) mg/dL Estim Creat Clear Calc 46.8 Estimated GFR 47 Random Glucose 125 H (60-115) mg/dL Calcium 9.2 (8.4-10.2) mg/dL Total Bilirubin 0.4 (0.0-1.0) mg/dL Direct Bilirubin 0.1 (0.0-0.5) mg/dL AST 16 (5-31) U/L ALT 9 (0-31) U/L Alkaline Phosphatase 82 (39-117) U/L Troponin I High Sens 3.3 (<3.5-17.0) ng/L Total Protein 6.7 (6.5-8.0) g/dL Albumin 3.8 (3.5-5.0) g/dL Lipase 26 (8-78) U/L Urine Color Yellow Urine Appearance Turbid Urine pH 5.0 (5.0-9.0) Ur Specific [place] 1.020 (1.005-1.025) Urine Protein Negative (Neg-Trace) mg/dL Urine Glucose (UA) Negative (Negative) mg/dL Urine Ketones Negative (Negative) mg/dL Urine Blood Small (1+) H (Negative) Urine Nitrite Positive H (Negative) Ur Leukocyte Esterase Moderate (2+) H (Negative) Urine RBC 0-2 (0-2) /HPF Urine WBC 21-50 H (0-5) /HPF Urine WBC Clumps Present Ur Squamous Epith Cells >20 (0-2) /HPF Urine Bacteria 4+ (None Seen) Hyaline Casts 0-2 (0-2) /LPF Salicylates < 5.0 L (15-30) mg/dL Urine Opiates Screen Not Detected (Not Detect) Ur Buprenorphine Scrn Not Detected (Not Detect) ng/mL Ur Oxycodone Screen Not Detected (Not Detect) ng/mL Urine Methadone Screen Not Detected (Not Detect) ng/mL Urine Fentanyl Screen Not Detected (Not Detect) Acetaminophen < 3 (<30) mcg/mL Ur Barbiturates Screen Not Detected (Not Detect) Ur Phencyclidine Scrn Not Detected (Not Detect) Ur Amphetamines Screen Not Detected (Not Detect) U Benzodiazepines Scrn Not Detected (Not Detect) Urine Cocaine Screen Not Detected (Not Detect) U Marijuana (THC) Screen Not Detected (Not Detect) Ethyl Alcohol < 10 mg/dL Discharge Plan Discharge Clinical Impression: Acute UTI, Depression Patient Disposition: Home, Self-Care Instructions: Urinary Tract Infection in Women (DC), Depression (ED) Prescriptions: New nitrofurantoin monohyd/m-cryst [Macrobid] 100 mg capsule 100 mg PO Q12H 7 Days Qty: 14 0RF Rx Instructions: must administer with a meal/food No Action bupropion HCl 300 mg tablet extended release 24 hr 300 mg PO QAM quetiapine 25 mg tablet 25 mg PO DAILY sertraline 50 mg tablet 100 mg PO DAILY Rx Instructions: 2 tabs in the morning, 1/2 tab evening Interventions: [place]-Suicide Risk Severity Scale Last Done: 11/19/23 17:22 Print Language: Syriac
[2023-11-19 15:29] LABS: MANUAL DIFF FLAG NO
[2023-11-19 15:34] LABS: Appearance Urine Turbid; Color Urine Yellow; Glucose Urine UA Negative (Negative); Leukocyte Esterase Urine Moderate (2+) (Negative); Nitrite Urine Positive (Negative); UMIC TRIGGER UACC YES; Urine Blood Small (1+) (Negative); Urine Ketones Negative (Negative); Urine Protein Negative (Neg-Trace)
[2023-11-19 15:34] LABS: Basophils Absolute Auto 0.1 X10*3/uL (0.0-0.2); Basophils Percent Auto 1.1 % (0-2); Eosinophils Absolute Auto 0.2 X10*3/uL (0.0-0.4); Eosinophils Percent Auto 3.1 % (0-4); Hematocrit 37.6 % (37.0-47.0); Hemoglobin 12.5 g/dl (12.0-16.0); Imm Gran Abs Auto 0.02 X10*3/uL (0.00-0.03); Imm Gran Pct Auto 0.3 % (0.0-0.4); Lymphocytes Absolute Auto 1.6 X10*3/uL (1.2-4.9); Lymphocytes Percent Auto 22.1 % (20-40); Mean Corpuscular HGB Conc 33.2 g/dl (31.0-35.0); Mean Corpuscular Hemoglobin 29.3 pg (27.0-33.0); Mean Corpuscular Volume 88.1 fL (80.0-98.0); Mean Platelet Volume 9.9 fL (9.4-12.3); Monocytes Absolute Auto 0.3 X10*3/uL (0.1-1.2); Monocytes Percent Auto 4.5 % (2-11); Neutrophils Absolute Auto 4.9 x10*3/uL (2.0-8.3); Neutrophils Percent Auto 68.9 % (45-73); Platelet Count 256 X10*3/uL (160-400); Red Blood Count 4.27 X10*6/uL (4.20-5.50); Red Cell Distribution Width 14.4 % (11.0-16.0); White Blood Count 7.2 X10*3/uL (4.8-10.8)
[2023-11-19 15:42] LABS: Amphetamine Screen Urine Not Detected (Not Detect); Barbiturates, Urine Not Detected (Not Detect); Benzodiazepines Screen Urine Not Detected (Not Detect); Buprenorphine Scr Not Detected (Not Detect); Cannabinoid Screen Urine Not Detected (Not Detect); Cocaine Screen Urine Not Detected (Not Detect); Fentanyl, urine Not Detected (Not Detect); Methadone Screen, Urine Not Detected (Not Detect); Opiate Screen Urine Not Detected (Not Detect); Oxycodone Screen Urine Not Detected (Not Detect); Phencyclidine Screen Urine Not Detected (Not Detect)
[2023-11-19 15:48] LABS: Alanine Aminotransferase 9 U/L (0-31); Albumin Level 3.8 g/dL (3.5-5.0); Alkaline Phosphatase 82 U/L (39-117); Anion Gap 16 (12-20); Aspartate Amino Transferase 16 U/L (5-31); Bilirubin Direct 0.1 mg/dL (0.0-0.5); Bilirubin Total 0.4 mg/dL (0.0-1.0); Blood Urea Nitrogen 16 mg/dL (9-16); Calcium 9.2 mg/dL (8.4-10.2); Carbon Dioxide 22 mmol/L (22-29); Chloride 105 mmol/L (96-108); Creatinine Clr Calc Pharmacy 46.8; Estimated Glomerular Filt Rate 47; Ethanol < 10 mg/dL; Glucose Random 125 mg/dL (60-115); Lipase 26 U/L (8-78); Potassium 3.7 mmol/L (3.3-5.1); Sodium 139 mmol/L (135-145); Total Protein 6.7 g/dL (6.5-8.0)
[2023-11-19 15:50] LABS: Bacteria Urine 4+ (None Seen); Hyaline Casts Urine 0-2 /LPF (0-2); RBC Urine 0-2 /HPF (0-2); Squamous Epithelial Cell Urine >20 /HPF (0-2); UACC Culture Trigger YES; WBC Clumps Urine Present; WBC Urine 21-50 /HPF (0-5)
[2023-11-19 15:55] LABS: Troponin-I High Sensitivity 3.3 ng/L (<3.5-17.0)
[2023-11-19 16:26] LABS: Acetaminophen LAB < 3 mcg/mL (<30); Salicylate < 5.0 mg/dL (15-30)
[2023-11-19] MEDS: Nitrofurantoin Monohyd/M-Cryst 100 MG CAPSULE PO (17:07)
[2023-11-19 18:39] VITALS: BP 121/68; PULSE 65; RESP 16; TEMP 36.5; O2SAT 95
--- NOTE | 2023-11-20 15:39 | MHC.CARE ---
RAD Team emailed referral to CC. Will follow up tomorrow
--- NOTE | 2023-11-21 08:45 | MHC.CARE ---
Per [facility] intake they cannot accommodate a referral to therapy for this individual or assign her case due to her insurance. Message was relayed to the CARE team.
== END 2023-11-19 18:39 | disposition home or self-care (01) ==
PROVIDERS: Emergency Provider Emergency Medicine
DX: F32.A Depression, unspecified (principal); N39.0 Urinary tract infection, site not specified; R45.851 Suicidal ideations; Z04.6 Encounter for general psychiatric examination, requested by authority; Z65.3 Problems related to other legal circumstances; Z79.899 Other long term (current) drug therapy
CPT/HCPCS: 36415; 80048; 80076; 80143; 80179; 80307; 81001; 83690; 84484; 85025; 87086; 87088; 87186; 99284; S9485

== ENCOUNTER 2023-12-04 14:19 | Outpatient (AMB) | payer MEDICARE, SELFPAY ==
--- NOTE | 2023-12-04 14:21 | A.OFFVIS_ITS ---
Vital Signs 12/04/23 14:27 Height 5 ft 3 in Weight 218 lb 2 oz BMI 38.6 BP 116/70 Blood Pressure Location Rt brachial Position Sitting Pulse 71 Pulse Source Pulse Oximeter Pulse Oximetry (%) 97 Oxygen Delivery Method Room Air Intake Visit Reasons: INP-Amnesia/Dementia - Confirmed Intake Note: Patient presents for Amnesia and Dementia. Allergies egg Allergy (Unknown, Verified 12/04/23 14:26) gi cramps penicillin V Allergy (Unknown, Verified 12/04/23 14:26) GI cramps codeine [CODEINE] Adverse Reaction (Intermediate, Verified 12/04/23 14:26) NAUSEA & VOMITING oxycodone [From PERCOCET] Adverse Reaction (Intermediate, Verified 12/04/23 14:26) NAUSEA & VOMITING Penicillins Adverse Reaction (Intermediate, Verified 12/04/23 14:26) ABD. PAIN Medication List - Last Reconciled 12/04/23 by Helen Alfred MD bupropion HCl XL 300 mg PO QAM nitrofurantoin monohyd/m-cryst 100 mg (Macrobid) 100 mg PO Q12H 7 days quetiapine 25 mg PO DAILY sertraline 100 mg PO DAILY HPI Comments Details: 77y/o Right handed female comes for evaluation of memory issues. She reports memory issues that started about 5 years ago and has progressed . The memory issues are mostly short term recall. she misplaces things around the house, misses appointments, forgets conversations etc. she is alone today and is unable to give more details of her cognitive issues. she still take cares of her finances. she denies executive dysfunction. she is independent in all ADLs. she lives in her own apartment and her friend lives downstairs. She denies any known head injury. she denies anxiety. she is not very social . No known h/o dementia [facility] Medical History (Updated 12/04/23 @ 15:02 by Helen Alfred MD) Cognitive impairment Mammogram declined Colonoscopy refused COVID-19 vaccine dose declined Refused influenza vaccine Weakness generalized Gait instability Chronic hip pain, bilateral Keeps losing balance Memory changes Obesity (BMI 30-39.9) Postmenopause Intolerance to BiPAP/CPAP Obstructive sleep apnea Drusen of eye Osteoarthritis Tubular adenoma of colon Menopause Osteopenia of left hip Breast cancer screening by mammogram Positional lightheadedness Recurrent falls Dyslipidemia Depression Surgical History History of hysterectomy Hx of tonsillectomy H/O section Family History Father Tuberculosis Substance use disorder Mother Diabetes mellitus Maternal Grandmother Diabetes mellitus Maternal Grandfather Cancer Son No problems noted. Daughter No problems noted. Social History Housing: Apartment Alcohol intake: never Patient Tobacco Use Status: Former Tobacco user e-Cigarette/Vaping Use: Never Used Current occupational status: retired Cognitive needs: No Hearing needs: No Vision needs: Yes Review of Systems Neuro Reports confusion Psych Reports confusion Physical Exam Vital Signs: Last Vital Signs Pulse 71 12/04/23 14:27 BP 116/70 12/04/23 14:27 Pulse Ox 97 12/04/23 14:27 Oxygen Delivery Method Room Air 12/04/23 14:27 BMI result Body Mass Index 5.0 Const General: cooperative, comfortable and confusion Nutritional Appearance: obese Orientation/consciousness: confusion Eyes Pupils: Equal, round and reactive pupils present Neuro Other: MOCA- 19/30 General: moves all extremities, no focal motor deficits and confusion Cranial nerves: Yes Equal, round and reactive pupils present, Yes Bilaterally intact EOM present, Yes Nystagmus not present, Yes Normal facial strength present, Yes Midline tongue present and Yes Ability to bilaterally elevate shoulders present Cognition (Neuro): abnormal cognition Gait exam (Neuro): Scissors gait present, Steppage gait present and Assistive device used Motor exam (neuro): 5/5 motor strength present throughout and Normal motor muscle tone present throughout Deep tendon reflexes (DTR's): Right triceps reflex intensity grade: 1+, Left triceps reflex intensity grade: 1+, Rt Biceps (C5, C6): 1+, Left biceps reflex intensity grade: 1+, Right brachioradialis reflex intensity grade: 1+, Left brachioradialis reflex intensity grade: 1+, Right patellar reflex intensity grade: 0 and Left patellar reflex intensity grade: 0 Assessment & Plan Assessment & Plan (1) Cognitive impairment: Comment: early dementia , worsened by depression ? untreated sleep apnea Code(s): R41.89 - Other symptoms and signs involving cognitive functions and awareness Category: Medical Plan I will do MRI brain to evaluate . reviewed labs TSH and B12 were normal I will trial her on donepezil 10 mg 1/2 tab for 1 month and then 1 tab qd will refer to cognitive therapy Orders: Orders MR brain wo con w neuroquant Today R41.3 - Other amnesia Referrals Speech and Hearing Referral R41.89 - Other symptoms and signs involving cognitive functions and awareness Medications: New donepezil 1/2 tab qd for 4 weeks then 1 tabq d orally daily; 30 tabs 6RF Coding Level of Care Code New Pt Level 4 (21475) Diagnoses Cognitive impairment R41.89
[2023-12-04 14:27] VITALS: BP 116/70; PULSE 71; O2SAT 97; BMI 38.6
== END 2023-12-04 15:07 | disposition home or self-care (01) ==
PROVIDERS: PCP Internal Medicine; Visit Provider Psychiatry & Neurology Neurology
DX: R41.89 Other symptoms and signs involving cognitive functions and awareness (principal)
CPT/HCPCS: 99204

== ENCOUNTER → 2023-12-04 14:19 | Outpatient (BNVA) | payer MEDICARE, SELFPAY | PROVIDERS: PCP Internal Medicine; Visit Provider Psychiatry & Neurology Neurology | DX: R41.89 Other symptoms and signs involving cognitive functions and awareness (principal) | CPT/HCPCS: 99202 ==

== ENCOUNTER 2024-05-19 05:20 | Outpatient (REF) | payer MEDICARE, SELFPAY ==
[2024-05-19 05:22] LABS: MANUAL DIFF FLAG NO
[2024-05-19 05:43] LABS: Basophils Absolute Auto 0.1 X10*3/uL (0.0-0.2); Basophils Percent Auto 0.9 % (0-2); Eosinophils Absolute Auto 0.2 X10*3/uL (0.0-0.4); Eosinophils Percent Auto 4.4 % (0-4); Hematocrit 34.2 % (37.0-47.0); Hemoglobin 11.1 g/dl (12.0-16.0); Imm Gran Abs Auto 0.04 X10*3/uL (0.00-0.03); Imm Gran Pct Auto 0.8 % (0.0-0.4); Lymphocytes Absolute Auto 1.3 X10*3/uL (1.2-4.9); Lymphocytes Percent Auto 23.9 % (20-40); Mean Corpuscular HGB Conc 32.5 g/dl (31.0-35.0); Mean Corpuscular Hemoglobin 27.8 pg (27.0-33.0); Mean Corpuscular Volume 85.7 fL (80.0-98.0); Mean Platelet Volume 10.1 fL (9.4-12.3); Monocytes Absolute Auto 0.5 X10*3/uL (0.1-1.2); Monocytes Percent Auto 9.3 % (2-11); Neutrophils Absolute Auto 3.2 x10*3/uL (2.0-8.3); Neutrophils Percent Auto 60.7 % (45-73); Platelet Count 231 X10*3/uL (160-400); Red Blood Count 3.99 X10*6/uL (4.20-5.50); Red Cell Distribution Width 15.2 % (11.0-16.0); White Blood Count 5.3 X10*3/uL (4.8-10.8)
[2024-05-19 05:58] LABS: Alanine Aminotransferase 8 U/L (0-31); Albumin Level 3.4 g/dL (3.5-5.0); Alkaline Phosphatase 72 U/L (39-117); Anion Gap 15 (12-20); Aspartate Amino Transferase 24 U/L (5-31); Bilirubin Total 0.7 mg/dL (0.0-1.0); Blood Urea Nitrogen 16 mg/dL (9-16); Calcium 9.5 mg/dL (8.4-10.2); Carbon Dioxide 24 mmol/L (22-29); Chloride 103 mmol/L (96-108); Estimated Glomerular Filt Rate 55; Glucose Random 94 mg/dL (60-115); Potassium 4.2 mmol/L (3.3-5.1); Sodium 138 mmol/L (135-145); Total Protein 6.3 g/dL (6.5-8.0)
== END 2024-05-19 05:21 | disposition home or self-care (01) ==
LOC: HO.MMNH2L 05:20
PROVIDERS: Visit Provider Student in an Organized Health Care Education/Training Program
DX: S82.841A Displaced bimalleolar fracture of right lower leg, initial encounter for closed fracture (principal)
CPT/HCPCS: 36415; 80053; 85025

== ENCOUNTER 2024-05-25 05:47 | Outpatient (REF) | payer MEDICARE, SELFPAY ==
[2024-05-25 05:39] LABS: MANUAL DIFF FLAG NO
[2024-05-25 06:32] LABS: Anion Gap 14 (12-20); Blood Urea Nitrogen 12 mg/dL (9-16); Carbon Dioxide 21 mmol/L (22-29); Chloride 110 mmol/L (96-108); Estimated Glomerular Filt Rate 50; Glucose Random 87 mg/dL (60-115); Potassium 3.6 mmol/L (3.3-5.1); Sodium 141 mmol/L (135-145)
[2024-05-25 07:06] LABS: Basophils Absolute Auto 0.1 X10*3/uL (0.0-0.2); Eosinophils Absolute Auto 0.2 X10*3/uL (0.0-0.4); Eosinophils Percent Auto 4.9 % (0-4); Hematocrit 34.2 % (37.0-47.0); Hemoglobin 10.8 g/dl (12.0-16.0); Imm Gran Abs Auto 0.03 X10*3/uL (0.00-0.03); Imm Gran Pct Auto 0.6 % (0.0-0.4); Lymphocytes Absolute Auto 1.5 X10*3/uL (1.2-4.9); Lymphocytes Percent Auto 31.6 % (20-40); Mean Corpuscular HGB Conc 31.6 g/dl (31.0-35.0); Mean Corpuscular Hemoglobin 27.9 pg (27.0-33.0); Mean Corpuscular Volume 88.4 fL (80.0-98.0); Mean Platelet Volume 10.4 fL (9.4-12.3); Monocytes Absolute Auto 0.4 X10*3/uL (0.1-1.2); Monocytes Percent Auto 7.8 % (2-11); Neutrophils Absolute Auto 2.6 x10*3/uL (2.0-8.3); Neutrophils Percent Auto 54.1 % (45-73); Platelet Count 229 X10*3/uL (160-400); Red Blood Count 3.87 X10*6/uL (4.20-5.50); Red Cell Distribution Width 15.8 % (11.0-16.0); White Blood Count 4.9 X10*3/uL (4.8-10.8)
== END 2024-05-25 05:48 | disposition home or self-care (01) ==
LOC: HO.MMNH2L 05:47
PROVIDERS: Visit Provider Student in an Organized Health Care Education/Training Program
DX: S82.891A Other fracture of right lower leg, initial encounter for closed fracture (principal); X58.XXXA Exposure to other specified factors, initial encounter; Y93.9 Activity, unspecified; Y92.9 Unspecified place or not applicable; Y99.9 Unspecified external cause status
CPT/HCPCS: 36415; 80048; 85025

== ENCOUNTER 2024-05-29 17:55 | Outpatient (BNV) | payer MEDICARE, SELFPAY | END 2024-05-30 04:02 | PROVIDERS: Admitting Provider Internal Medicine; PCP Nurse Practitioner Family; Visit Provider Internal Medicine Cardiovascular Disease | DX: R07.9 Chest pain, unspecified (principal) | CPT/HCPCS: 93010 ==

== ENCOUNTER 2024-05-29 17:55 | Inpatient (IN) | payer MEDICARE, SELFPAY ==
[2024-05-29 18:25] VITALS: BP 129/62; PULSE 84; RESP 16; TEMP 36.6; O2SAT 94
--- NOTE | 2024-05-29 19:08 | HO.PM.IMCN ---
History of Present Illness Data of Consult Service Date: 05/29/24 Primary Care Provider: YARITZA Johnson HPI Reason for consult: Admission H&P Pt is a 78-year-old female with no reported significant PMH not on home medications who is admitted to [facility] Psych for increasing depression and SI with vague thoughts of hanging herself. Patient was previously admitted to [facility] for bimalleolar fracture of right ankle and discharged on 05/18/2024 to STR. Medical consult for admission H&P. ?Patient seen and evaluated in her room where she is noted to be wearing a walking boot on right foot. Patient reports she slipped and fell at home a few weeks prior on a wet and slippery floor. Currently she is not experiencing any significant pain in right ankle or foot. No numbness or tingling in extremities. Patient denies any significant PMH, and denies any acute medical complaints at this time, stating that she feels ?fine?. Denies fever, chills, nausea, vomiting, abdominal pain. No chest pain/pressure, palpitations. Denies shortness or breath or difficulty breathing. No headache or acute vision changes. Review of Systems Review of Systems: Patient denies any acute medical complaints at this time [facility] Medical History Cognitive impairment Mammogram declined Colonoscopy refused COVID-19 vaccine dose declined Refused influenza vaccine Weakness generalized Gait instability Chronic hip pain, bilateral Keeps losing balance Memory changes Obesity (BMI 30-39.9) Postmenopause Intolerance to BiPAP/CPAP Obstructive sleep apnea Drusen of eye Osteoarthritis Tubular adenoma of colon Menopause Osteopenia of left hip Breast cancer screening by mammogram Positional lightheadedness Recurrent falls Dyslipidemia Depression Family History Father Tuberculosis Substance use disorder Mother Diabetes mellitus Maternal Grandmother Diabetes mellitus Maternal Grandfather Cancer Son No problems noted. Daughter No problems noted. Surgical History History of hysterectomy Hx of tonsillectomy H/O section Social History Housing: Apartment Alcohol intake: never Patient Tobacco Use Status: Former Tobacco user e-Cigarette/Vaping Use: Never Used Advance Directives: No Advance Directives Information Provided: No Current occupational status: retired Cognitive needs: No Hearing needs: No Vision needs: Yes Meds Allergies Allergy/AdvReac Type Severity Reaction Status Date / Time egg Allergy Unknown gi cramps Verified 12/04/23 14:26 penicillin V Allergy Unknown GI cramps Verified 12/04/23 14:26 codeine [CODEINE] AdvReac Intermediate NAUSEA & Verified 12/04/23 14:26 VOMITING oxycodone [From PERCOCET] AdvReac Intermediate NAUSEA & Verified 12/04/23 14:26 VOMITING Penicillins AdvReac Intermediate ABD. PAIN Verified 12/04/23 14:26 Active Medications: Current Medications Acetaminophen (Acetaminophen 325 Mg Tablet) 650 mg PO Q6H PRN PRN Reason: Headache/Pain Mild Scale (1-3) Al Hydroxide/Mg Hydroxide (Magnesium Hydrox/Alum Hydrox 30 Ml Oral.Susp) 30 ml PO Q6H PRN PRN Reason: Heartburn/Nausea Hydroxyzine HCl (Hydroxyzine Hcl 25 Mg Tablet) 25 mg PO Q6H PRN PRN Reason: Anxiety Magnesium Hydroxide (Milk Of Magnesia 30 Ml Oral.Susp) 30 ml PO DAILY PRN PRN Reason: Constipation Nicotine Polacrilex (Nicotine Polacrilex 2 Mg Gum) 2 mg BUCCAL Q2H PRN PRN Reason: Nicotine Cravings Nystatin (Nystatin Powder 15 Gm Bottle) 1 appl TOPICAL TID NEHAL; Protocol Trazodone HCl (Trazodone Hcl 50 Mg Tablet) 50 mg PO BEDTIME MRX1 PRN PRN Reason: Insomnia Home Medications ?Medication ?Instructions ?Recorded ?Confirmed ?Last Taken ?Type bupropion HCl 300 mg 24 hr tablet, 300 mg PO QAM 10/14/23 12/04/23 Unknown History extended release quetiapine 25 mg tablet 25 mg PO DAILY 10/14/23 12/04/23 Unknown History sertraline 50 mg tablet 100 mg PO DAILY 10/14/23 12/04/23 Unknown History Physical Exam Vital Signs and Narrative: Vital Signs: Last Vital Signs Temp 97.9 F 05/29/24 18:25 Pulse 84 05/29/24 18:25 Resp 16 05/29/24 18:25 BP 129/62 05/29/24 18:25 Pulse Ox 94 05/29/24 18:25 O2 Del Method Room Air 05/29/24 18:25 General: AOx3, no acute distress Resp: CTA bilaterally CVS: S1, S2, RRR GI: +BS, NT, no distention Skin: Warm, dry Neuro: Cranial nerves II-XII grossly intact bilaterally. Motor grossly intact bilaterally Extremities: No edema. Right leg in walking boot. Psych: Appropriate affect Assessment and Plan (1) Medical clearance for psychiatric admission: Status: Acute Plan Pt is a 78-year-old female with no reported significant PMH not on home medications who is admitted to [facility] for increasing depression and SI with vague thoughts of hanging herself. Patient was previously admitted to [facility] for bimalleolar fracture of right ankle and discharged on 05/18/2024 to STR. Medical consult for admission H&P. Mood disorder Plan as per Psychiatry Bimalleolar fracture of right ankle Occurred a few weeks ago after mechanical fall at home Continue walking boot, transfer assistance as necessary Follow-up outpatient with orthopedics Patient otherwise does not appear to have any significant chronic medical conditions or acute medical complaints at this time. Will sign off for now. Thank you for allowing us to participate in the care of this patient. Please re-consult if any acute issue or need arises.
[2024-05-29 20:00] VITALS: BP 127/60; PULSE 74; RESP 14; TEMP 36.8; O2SAT 95
[2024-05-29] MEDS: Nystatin Powder 15 GM BOTTLE 1 APPL TOPICAL (21:39)
--- NOTE | 2024-05-29 21:45 | PC.ADMIT ---
Carmen arrived to the unit at 1814, she's on a 12b. Upon approach Carmen was in bed, when asked how she felt stated People are who they are, they're not going to change. She reports endorsing anxiety and depression, when asked if she had any thoughts of wanting to hurt self stated I don't want to hurt myself, I want to escape. She reports she is struggling with the separation from her significant other stated I was for 30 years. She reports feeling Hurt, then stated It's the thoughts, if a car is driving I don't think I can stop myself from getting in front of it. She reports racing thoughts, when asked if she would seek out staff if urge to hurt self occurred stated I don't know. She reports an extensive trauma history. Per assessment Carmen is diagnosed with depression, she was brought to [facility] secondary to expressing SI with plan to hang self to providers and residents at [facility] for two days. She reports these thoughts come and go especially after partner contacts her, she reports feeling sad. Urine was collected which showed heavy bacteria, she is not currently on any antibiotics. She also has a right ankle fracture. She is currently on 5 minute checks.
--- NOTE | 2024-05-30 | ECG_ITS ---
Test Reason : CP Blood Pressure : / mmHG Vent. Rate : 079 BPM Atrial Rate : 079 BPM P-R Int : 134 ms QRS Dur : 076 ms QT Int : 376 ms P-R-T Axes : 008 000 008 degrees QTc Int : 431 ms Normal sinus rhythm Normal ECG When compared with ECG of 22-FEB-2014 18:05, No significant change was found Referred By: Justin Blanchard Electronically Signed By:MARY WATT MD
[2024-05-30 08:00] VITALS: BP 110/65; PULSE 100; RESP 18; TEMP 36.3; O2SAT 96
[2024-05-30] MEDS: Omeprazole 20 MG CAPSULE.DR PO (08:44)
[2024-05-30] MEDS: QUEtiapine Fumarate 25 MG TABLET PO (08:44)
[2024-05-30] MEDS: Sennosides 8.6 MG TABLET PO (08:44)
[2024-05-30] MEDS: Sertraline HCL 50 MG TABLET 150 MG PO (08:44)
[2024-05-30] MEDS: buPROPion HCl XL 300 MG TAB.ER.24H PO (08:44)
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
[2024-05-30] MEDS: Aspirin 325 MG TABLET PO (14:57)
[2024-05-30] MEDS: Nystatin Powder 15 GM BOTTLE 1 APPL TOPICAL (14:57)
--- NOTE | 2024-05-30 18:06 | P.HPHOSP_ITS ---
History of Present Illness Date of Service: 05/30/24 Chief Complaint: GI bleed 78yo F who was admitted to the geriatric psychiatry unit today from the [facility] ED, where she was sent from [facility] on 05/28/24, where she was undergoing rehabilitation after suffering a R ankle bimalleolar fracture and undergoing OR IF at [facility] on 05/13/24. She was discharged to [facility] on 05/18/24 on SQ UFH to transition to ASA for DVT prophylaxis. She was admitted to the psychiatry due to suicidal ideation. She was feeling fine today but then had several episodes of non-bloody non-bilious vomiting. She subsequently had a large grossly bloody bowel movement. She denies any lightheadedness, shortness of breath, or chest pain. No abdominal pain. She has not had a GI bleed before. Hb at [facility] on 05/15/24 was 10.6. Her last colonoscopy was done by Dr Sumeet Paige on 04/08/17 and showed small colonic polyps, diverticulosis, and small internal hemorrhoids. Currently she is awake and alert and oriented. BP is 98/52, HR 84, RR 16, SaO2 98 on room air. Review of Systems Review of Systems: Yes all other systems are reviewed and are negative [facility] Medical History Cognitive impairment Mammogram declined Colonoscopy refused COVID-19 vaccine dose declined Refused influenza vaccine Weakness generalized Gait instability Chronic hip pain, bilateral Keeps losing balance Memory changes Obesity (BMI 30-39.9) Postmenopause Intolerance to BiPAP/CPAP Obstructive sleep apnea Drusen of eye Osteoarthritis Tubular adenoma of colon Menopause Osteopenia of left hip Breast cancer screening by mammogram Positional lightheadedness Recurrent falls Dyslipidemia Depression Family History Father Tuberculosis Substance use disorder Mother Diabetes mellitus Maternal Grandmother Diabetes mellitus Maternal Grandfather Cancer Son No problems noted. Daughter No problems noted. Surgical History History of hysterectomy Hx of tonsillectomy H/O section Social History Household Members: None Housing: Assisted Do you presently have visiting nurse or other home services: No Alcohol intake: never Patient Tobacco Use Status: Former Tobacco user e-Cigarette/Vaping Use: Never Used Current occupational status: retired Cognitive needs: No Hearing needs: No Vision needs: Yes Meds Allergies Allergy/AdvReac Type Severity Reaction Status Date / Time egg Allergy Unknown gi cramps Verified 12/04/23 14:26 penicillin V Allergy Unknown GI cramps Verified 12/04/23 14:26 codeine [CODEINE] AdvReac Intermediate NAUSEA & Verified 12/04/23 14:26 VOMITING oxycodone [From PERCOCET] AdvReac Intermediate NAUSEA & Verified 12/04/23 14:26 VOMITING Penicillins AdvReac Intermediate ABD. PAIN Verified 12/04/23 14:26 Active Medications: Current Medications Acetaminophen (Acetaminophen 325 Mg Tablet) 650 mg PO Q6H PRN PRN Reason: Headache/Pain Mild Scale (1-3) Al Hydroxide/Mg Hydroxide (Magnesium Hydrox/Alum Hydrox 30 Ml Oral.Susp) 30 ml PO Q6H PRN PRN Reason: Heartburn/Nausea Aspirin (Aspirin 325 Mg Tablet) 325 mg PO DAILY [facility] Last Admin: 05/30/24 14:57 Dose: 325 mg Bupropion HCl (Bupropion Hcl Xl 300 Mg Tab.Er.24h) 300 mg PO DAILY [facility] Last Admin: 05/30/24 08:48 Dose: Not Given Hydroxyzine HCl (Hydroxyzine Hcl 25 Mg Tablet) 25 mg PO Q6H PRN PRN Reason: Anxiety Magnesium Hydroxide (Milk Of Magnesia 30 Ml Oral.Susp) 30 ml PO DAILY PRN PRN Reason: Constipation Nicotine Polacrilex (Nicotine Polacrilex 2 Mg Gum) 2 mg BUCCAL Q2H PRN PRN Reason: Nicotine Cravings Nystatin (Nystatin Powder 15 Gm Bottle) 1 appl TOPICAL TID [facility]; Protocol Last Admin: 05/30/24 14:59 Dose: Not Given Omeprazole (Omeprazole 20 Mg Capsule.Dr) 20 mg PO BID [facility] Last Admin: 05/30/24 08:44 Dose: 20 mg Quetiapine Fumarate (Quetiapine Fumarate 25 Mg Tablet) 25 mg PO DAILY [facility] Last Admin: 05/30/24 08:44 Dose: 25 mg Senna (Sennosides 8.6 Mg Tablet) 8.6 mg PO BID [facility] Last Admin: 05/30/24 08:44 Dose: 8.6 mg Sertraline HCl (Sertraline Hcl 50 Mg Tablet) 150 mg PO DAILY [facility] Last Admin: 05/30/24 08:44 Dose: 150 mg Trazodone HCl (Trazodone Hcl 50 Mg Tablet) 50 mg PO BEDTIME MRX1 PRN PRN Reason: Insomnia Home Medications ?Medication ?Instructions ?Recorded ?Confirmed ?Last Taken ?Type bupropion HCl 300 mg 24 hr tablet, 300 mg PO QAM 10/14/23 05/29/24 Unknown History extended release quetiapine 25 mg tablet 25 mg PO DAILY 10/14/23 05/29/24 Unknown History sertraline 50 mg tablet 150 mg PO DAILY 10/14/23 05/29/24 Unknown History pantoprazole 40 mg tablet,delayed 40 mg PO BID 05/29/24 05/29/24 Unknown History release senna 187 mg tablet 187 mg PO BID 05/29/24 05/29/24 Unknown History Physical Exam Vital Signs and Narrative: Vital Signs: Last Vital Signs Temp 97.3 F 05/30/24 08:00 Pulse 100 05/30/24 08:00 Resp 18 05/30/24 08:00 BP 110/65 05/30/24 08:00 Pulse Ox 96 05/30/24 08:00 O2 Del Method Room Air 05/30/24 08:00 Gen: in no acute distress HEENT: sclera anicteric, moist mucus membranes Neck: supple Lungs: clear to auscultation bilaterally Heart: regular rate and rhythm, no murmurs Abd: soft, non-tender, non-distended Ext: no edema Skin: warm/well-perfused Neuro: alert and oriented x3, no focal findings Psych: appropriate affect Assessment and Plan (1) Lower GI bleed: Status: Acute Plan 78yo F with dementia with recent bimalleolar fx s/p ORIF 05/13/24, discharged from [facility] to [facility] 05/18,sent to [facility] for SI on 05/28[place] and [place] [facility] psych 05/30. Developed lower GI bleed. LGIB - admit to telemetry, check CBCd + BMP, T+S, trend H+H, CT angiography, NPO, GI consultation for colonoscopy, hold ASA and heparin dementia mood disorder - continue bupropion, quetiapine, sertraline R bimalleolar fx sp ORIF 05/13/24 - per [facility] records, OOB with PT; foot flat TDWB RLE for 6 weeks VTE ppx - SCDs; no heparin given bleeding code - full dispo - TBD I anticipate that the patient will stay at least 2 midnights as an inpatient in the hospital due to the above reasons. It is neither reasonable nor safe to care for them in a less acute setting. Quality Stroke Does the patient have a stroke diagnosis?: No VTE Prior VTE?: No VTE Risk Level:: Medical - moderate - high VTE Device Contraindication: N/A - Device Ordered VTE Drug Contraindication: Treatment Not Indicated
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
== END 2024-05-30 18:51 | disposition short-term general hospital (02) | DRG 881 ==
PROVIDERS: Admitting Provider Internal Medicine; PCP Nurse Practitioner Family; Visit Provider Psychiatry & Neurology Psychiatry
DX: F32.9 Major depressive disorder, single episode, unspecified (principal); R45.851 Suicidal ideations; K92.2 Gastrointestinal hemorrhage, unspecified; F03.90 Unspecified dementia, unspecified severity, without behavioral disturbance, psychotic disturbance, mood disturbance, and anxiety; Z87.891 Personal history of nicotine dependence; Z79.899 Other long term (current) drug therapy
CPT/HCPCS: 93005

== ENCOUNTER → 2024-05-29 17:55 | Outpatient (BNV) | payer MEDICARE, SELFPAY | PROVIDERS: Admitting Provider Internal Medicine; PCP Nurse Practitioner Family; Visit Provider Psychiatry & Neurology Psychiatry | DX: F32.9 Major depressive disorder, single episode, unspecified (principal); R41.89 Other symptoms and signs involving cognitive functions and awareness | CPT/HCPCS: 99233; 99499 ==

== ENCOUNTER → 2024-05-29 17:55 | Outpatient (BNV) | payer MEDICARE, SELFPAY | PROVIDERS: Admitting Provider Internal Medicine; PCP Nurse Practitioner Family; Visit Provider Student in an Organized Health Care Education/Training Program | DX: K92.2 Gastrointestinal hemorrhage, unspecified (principal) | CPT/HCPCS: 99222; 99223 ==

== ENCOUNTER 2024-05-30 19:13 | Inpatient (IN) | payer MEDICARE, SELFPAY ==
--- NOTE | ~2024-05-30 | CT_ITS ---
EXAMINATION: CT ABDOMEN AND PELVIS WITHOUT AND WITH CONTRAST CLINICAL INFORMATION: GI bleeding COMPARISON: CT abdomen/pelvis 06/01/2024 TECHNIQUE: Multidetector volumetric imaging was performed of the abdomen and pelvis before and after the IV administration of 80 mL of Omnipaque 350 intravenous contrast. Sagittal and coronal reformatted images were obtained on the technologist's workstation. This CT examination was performed using dose optimization techniques as appropriate, variously including the following: *Automated exposure control *Adjustment of mA and/or kV according to patient size (this includes techniques or standardized protocols for targeted exams where dose is matched to indication/reason for exam; i.e. extremities or head) *Use of iterative reconstruction technique DLP: 1780 mGy-cm FINDINGS: LUNG BASES: The visualized lung bases are unremarkable. LIVER, GALLBLADDER, AND BILIARY TREE: Interval resolution of previously seen pneumobilia. The liver is normal in size, shape, and attenuation. No focal hepatic lesion or biliary ductal dilatation is present. Status post cholecystectomy. PANCREAS: Unremarkable SPLEEN: Stable subcentimeter hypodense lesions in the inferior spleen seen on arterial phase imaging. Stable inferior splenic coarse calcification. ADRENAL GLANDS: Stable left adrenal course calcification. Normal right adrenal gland. KIDNEYS AND URETERS: Stable bilateral peripelvic cysts. The kidneys are normal in size, shape, and attenuation. No hydronephrosis, hydroureter, or calculi seen. No perinephric stranding. BLADDER: Unremarkable GASTROINTESTINAL TRACT: Dense material throughout the colon even on noncontrast imaging severely limits evaluation for intravascular contrast extravasation. No evidence of active gastrointestinal bleeding in the small bowel. Moderate size hiatal hernia. The small and bowel are nondilated. Moderate sigmoid diverticulosis without acute diverticulitis. No evidence of appendicitis. ABDOMINAL WALL: No significant hernia is appreciated. LYMPH NODES: Normal VASCULAR: The aorta is nonaneurysmal with mild scattered atheromatous calcifications. PELVIC VISCERA: Status post hysterectomy. No adnexal masses. OSSEOUS STRUCTURES: There is suspicious osseous abnormality. Mild grade 1 anterolisthesis of L4 on L5 and mild grade 1 retrolisthesis of L5 on S1. Mild multilevel thoracal lumbar scoliosis. CT/CT gi bleed abd pel wo/w IVcon IMPRESSION: 1. Dense material throughout the colon on noncontrast imaging severely limits evaluation for contrast and rectal bleeding on the basis of extravasation of intravascular contrast. No evidence of active gastrointestinal bleeding in the small bowel. 2. Moderate sigmoid diverticulosis without acute diverticulitis. 3. Moderate size hiatal hernia. Fleischner guidelines were followed. These results were discussed with CAPRI Campos by telephone on 06/03/2024 at 3:31 PM and it was ascertained that the content of the report was understood at the time of direct communication. Electronically signed by: Teresa Longo DO 06/03/2024 03:40 PM ALAN DE LEON
--- NOTE | ~2024-05-30 | CT_ITS ---
EXAMINATION: CT ABDOMEN AND PELVIS WITH AND WITHOUT CONTRAST: CT GI BLEEDING STUDY CLINICAL INFORMATION: LGIB. COMPARISON: No pertinent prior studies are available for comparison. TECHNIQUE: Multidetector volumetric imaging was performed from the lung bases to the pubic symphysis before and after the administration of: Intravenous contrast: 85 mL Omnipaque 350 2 sets of post contrast imaging were performed, one during the portal venous phase and another after a 5 minute delay. No contrast reaction reported MIP coronal, sagittal and coronal reformatted images were obtained on the technologist workstation. This CT examination was performed using dose optimization techniques as appropriate, variously including the following: *Automated exposure control *Adjustment of mA and/or kV according to patient size (this includes techniques or standardized protocols for targeted exams where dose is matched to indication/reason for exam; i.e. extremities or head) *Use of iterative reconstruction technique Total exam dose-length product 2464 mGy-cm FINDINGS: STOMACH: No abnormal wall thickening or mass. A hiatal hernia is present. No intraluminal contrast accumulation to suggest hemorrhage. SMALL BOWEL: There is active hemorrhage seen in the proximal small bowel with accumulation of contrast seen in a proximal loop of jejunum in the left abdomen (10:75-86). An underlying mass or lesion is not seen. There is one other loop of proximal jejunum very close to this which demonstrates some punctate high density (10:71-73) COLON: No intraluminal contrast accumulation to suggest hemorrhage. No colonic wall thickening or pericolonic inflammatory changes. Diverticulosis without evidence of diverticulitis. Patient appears to be status post appendectomy LUNG BASES: No nodules, mass, or focal consolidation. Lingular atelectasis is present PLEURA: No pleural effusion. LIVER, GALLBLADDER, AND BILIARY TREE: The liver is is enlarged. No focal hepatic mass is seen. No focal hepatic lesion or biliary ductal dilatation is present. Pneumobilia is seen status post cholecystectomy. PANCREAS: Normal; no mass or surrounding fluid. SPLEEN: Normal size. No focal lesion. ADRENAL GLANDS: No definite adrenal masses are seen. Small calcification seen in the left adrenal gland . KIDNEYS AND URETERS: The kidneys are normal in size, shape, and attenuation. Bilateral benign parapelvic Bosniak class I renal cysts are noted which require no additional imaging or follow-up. No solid renal masses are seen. No hydronephrosis, hydroureter, or calculi. ABDOMINAL WALL: No hernia seen. LYMPHOVASCULAR STRUCTURES: No lymphadenopathy. Calcific atherosclerotic changes are present in the aorta and iliofemoral vessels. There is no evidence of an abdominal aortic aneurysm. The celiac, SMA and GILDA are patent. BLADDER: No focal mass or wall thickening seen. No bladder calculi. PELVIC VISCERA: The uterus is not seen. An abnormal adnexal mass is not detected. No free intraperitoneal fluid is present. OSSEOUS STRUCTURES: No acute or suspicious osseous abnormality. Degenerative changes are present in the spine with grade 1 anterolisthesis L4 upon L5. CT/CT gi bleed abd pel wo/w IVcon IMPRESSION: 1. Active GI hemorrhage in the proximal jejunum. 2. Incidental note made of hepatomegaly, pneumobilia, colonic diverticulosis, hysterectomy and degenerative changes in the spine. This critical result was discussed with Dr. Lassiter at 10:30 AM on 05/31/2024 and it was ascertained that the content and urgency of the report was understood at the time of direct communication. It seems centered at this point, the patient is hemodynamically stable. As we know she has bled into the proximal small bowel, if an episode of bleeding should occur again, she should have an immediate stat GI bleed study and go directly to IR should there be active extravasation. Electronically signed by: aDriusz Arboleda MD 05/31/2024 10:38 AM ALAN
--- NOTE | ~2024-05-30 | CT_ITS ---
EXAMINATION: CT ABDOMEN AND PELVIS WITHOUT AND WITH CONTRAST CLINICAL INFORMATION: Upper GI bleed COMPARISON: 05/30/2024 TECHNIQUE: Multidetector volumetric imaging was performed of the abdomen and pelvis before and after the IV administration of 80 mL of Omnipaque 350 intravenous contrast. Arterial and venous phase images are obtained Sagittal and coronal reformatted images were obtained on the technologist's workstation. This CT examination was performed using dose optimization techniques as appropriate, variously including the following: *Automated exposure control *Adjustment of mA and/or kV according to patient size (this includes techniques or standardized protocols for targeted exams where dose is matched to indication/reason for exam; i.e. extremities or head) *Use of iterative reconstruction technique DLP: 2789 mGy-cm FINDINGS: LUNG BASES: The visualized lung bases are unremarkable. LIVER, GALLBLADDER, AND BILIARY TREE: The liver is normal in size, shape, and attenuation. No focal hepatic lesion is present. S post cholecystectomy. Pneumobilia again seen in the left lobe of the liver. Prominent common bile duct is unchanged compared to the prior exam. PANCREAS: Unremarkable SPLEEN: Stable subcentimeter hypodensities in the spleen. There is additional solitary 8 coarse calcification noted within the spleen. ADRENAL GLANDS: Right adrenal gland is normal. A small calcification again seen in the right adrenal gland. KIDNEYS AND URETERS: The kidneys are normal in size, shape, and attenuation. No hydronephrosis, hydroureter, or calculi seen. No perinephric stranding. Bilateral parapelvic cysts are stable. BLADDER: Unremarkable GASTROINTESTINAL TRACT: Large hiatal hernia extending into the chest. Stomach is otherwise unremarkable. Previously seen active arterial hemorrhage within the jejunum is no longer visualized. Extensive diverticula seen within the sigmoid colon. No bowel wall thickening or inflammatory stranding. No active hemorrhage within the colon. ABDOMINAL WALL: No significant hernia is appreciated. LYMPH NODES: Normal VASCULAR: Aorta is normal in caliber. Scattered calcified plaque in the abdominal aorta without aneurysm. Mesenteric and renal vessels are widely patent. Bilateral iliac and visualized femoral arteries are normal in caliber and widely patent. PELVIC VISCERA: Status post hysterectomy. No adnexal mass lesions. OSSEOUS STRUCTURES: Unremarkable CT/CT gi bleed abd pel wo/w IVcon IMPRESSION: 1. Previously seen active arterial hemorrhage within the jejunal is no longer visualized. No active hemorrhage is seen on the current exam. 2. Large hiatal hernia. 3. Diverticulosis. No acute inflammatory process. Electronically signed by: Landon Dahl MD 06/01/2024 07:14 PM [facility]
[2024-05-30 19:57] VITALS: BP 109/65; PULSE 104; RESP 17; TEMP 36.2; O2SAT 98
[2024-05-30] MEDS: 0.9 % Sodium Chloride Flush 3 ML SYRINGE IVFLUSH (19:59)
[2024-05-30] MEDS: Lactated Ringers 1,000 ML 100 ML IVCONT (19:59)
[2024-05-30 20:09] LABS: MANUAL DIFF FLAG NO
[2024-05-30 20:10] LABS: Basophils Absolute Auto 0.1 X10*3/uL (0.0-0.2); Basophils Percent Auto 0.5 % (0-2); Eosinophils Percent Auto 0.3 % (0-4); Hematocrit 24.8 % (37.0-47.0); Imm Gran Abs Auto 0.09 X10*3/uL (0.00-0.03); Imm Gran Pct Auto 0.8 % (0.0-0.4); Lymphocytes Absolute Auto 1.2 X10*3/uL (1.2-4.9); Lymphocytes Percent Auto 9.9 % (20-40); Mean Corpuscular HGB Conc 32.3 g/dl (31.0-35.0); Mean Corpuscular Hemoglobin 28.6 pg (27.0-33.0); Mean Corpuscular Volume 88.6 fL (80.0-98.0); Mean Platelet Volume 10.3 fL (9.4-12.3); Monocytes Absolute Auto 0.5 X10*3/uL (0.1-1.2); Monocytes Percent Auto 4.6 % (2-11); Neutrophils Absolute Auto 9.9 x10*3/uL (2.0-8.3); Neutrophils Percent Auto 83.9 % (45-73); Platelet Count 234 X10*3/uL (160-400); White Blood Count 11.8 X10*3/uL (4.8-10.8)
[2024-05-30 20:24] LABS: Anion Gap 13 (12-20); Blood Urea Nitrogen 50 mg/dL (9-16); Calcium 8.6 mg/dL (8.4-10.2); Carbon Dioxide 22 mmol/L (22-29); Chloride 109 mmol/L (96-108); Estimated Glomerular Filt Rate 46; Glucose Random 132 mg/dL (60-115); Sodium 140 mmol/L (135-145)
--- NOTE | 2024-05-30 21:28 | PM.EVENT ---
Event Note Date of Service: 05/30/24 Event Note: Patient with dementia. Called patient's spouse, Valentina and verbal consent taken for blood transfusion and contrast for CT scan. Patient's spouse understands the risks. Time Spent With Patient Time: Total time managing care of this patient today ____ minutes.
[2024-05-30] MEDS: iohexoL 350 MG/ML 100 ML INFUS..BTL 80 ML IV (22:25)
[2024-05-30 23:37] VITALS: BP 122/59; PULSE 87; RESP 17; TEMP 36.5; O2SAT 94
[2024-05-31] VITALS (12 sets, daily range): BP systolic 106–137; BP diastolic 53–72; PULSE 81–89; RESP 14–20; TEMP 36.1–36.7; O2SAT 92–99
[2024-05-31] MEDS: LORazepam 2 MG/ML VIAL 1 MG IVPUSH (00:55)
--- NOTE | 2024-05-31 01:09 | PC.NURSE ---
Addendum entered by Caitlin Joiner RN 05/31/24 05:22: Patient was less agitated and restless after ativan. Science Faculty Member and nursing gelatin plant supervisor attempted to replace IV while the pt was calm though were unsuccessful x3 attempts. Ultrasound IV was attempted though the patient tolerated this poorly, and again became agitated as evidenced by flailing her arms and yelling at staff. Dr. Gill and nursing gelatin plant supervisor notified of lack of IV access. VSS at this time. No BM or bleeding noted. Original Note: Patient arrived to s4 at shift change in the evening (05/30) as a transfer from /[facility] for concern for GI bleed. Pt is alert and conversant, has a hx of dementia and is confused, forgetful, and difficult to redirect at times. Pt is refusing to answer many assessment questions and is easily agitated during care. Pt initially refused ordered lab draws in the evening though was able to be redirected and was agreeable to labs, obtained. Pt is still making active SI statements overnight. 1:[address] at bedside. Pt was taken to ED CT at 21:45 by the charge account authorizer and arrived back to the unit at 22:30 with new right AC #20 IV. Unfortunately, this IV is positional and the patient continues to bend her arm, is unable to comprehend education on keeping straight, pulls out the pillow placed beneath her arm to help with keeping the arm straight for continuous IV fluids. Pt is refusing IV replacement at this time, is restless and agitated as evidenced by rolling around in bed and pulling off her tele leads. VSS and breathing is even and unlabored without distress. Covering Dr. Gill notified of patient behavior and refusal of new IV/inability to infuse IV fluids at this time. orders for 1x ativan IVP given with effectiveness pending at this time. Bed alarm on and safety measures in place. Purposeful rounding enacted. Please see tech writer's shift assessment and tasks for full details.
[2024-05-31 09:16] LABS: MANUAL DIFF FLAG NO
[2024-05-31 09:32] LABS: Anion Gap 12 (12-20); Blood Urea Nitrogen 41 mg/dL (9-16); Calcium 8.1 mg/dL (8.4-10.2); Carbon Dioxide 23 mmol/L (22-29); Chloride 111 mmol/L (96-108); Estimated Glomerular Filt Rate > 60; Glucose Random 110 mg/dL (60-115); Sodium 142 mmol/L (135-145)
[2024-05-31 09:47] LABS: Basophils Absolute Auto 0.1 X10*3/uL (0.0-0.2); Eosinophils Absolute Auto 0.1 X10*3/uL (0.0-0.4); Hematocrit 21.9 % (37.0-47.0); Hemoglobin 7.1 g/dl (12.0-16.0); Imm Gran Abs Auto 0.03 X10*3/uL (0.00-0.03); Imm Gran Pct Auto 0.4 % (0.0-0.4); Lymphocytes Percent Auto 24.3 % (20-40); Mean Corpuscular HGB Conc 32.4 g/dl (31.0-35.0); Mean Corpuscular Hemoglobin 28.9 pg (27.0-33.0); Monocytes Absolute Auto 0.5 X10*3/uL (0.1-1.2); Monocytes Percent Auto 5.6 % (2-11); Neutrophils Absolute Auto 5.5 x10*3/uL (2.0-8.3); Neutrophils Percent Auto 67.7 % (45-73); Platelet Count 240 X10*3/uL (160-400); Red Blood Count 2.46 X10*6/uL (4.20-5.50); Red Cell Distribution Width 16.4 % (11.0-16.0); White Blood Count 8.2 X10*3/uL (4.8-10.8)
--- NOTE | 2024-05-31 10:19 | P.PNIM_ITS ---
Subjective Subjective Date of Service: 05/31/24 Interval History: Hb dropped to 7.1, HCP/spouse at bedside, consented for blood no abd pain No hematemesis, hematochezia, or melena. Review of Systems Review of Systems: Yes all other systems are reviewed and are negative Physical Exam 2 Vital Signs: Vital Signs: Last Vital Signs Temp 96.9 F 05/31/24 08:00 Pulse 84 05/31/24 08:00 Resp 18 05/31/24 08:00 BP 106/57 L 05/31/24 08:00 Pulse Ox 97 05/31/24 08:00 O2 Del Method Room Air 05/31/24 08:00 Gen: in no acute distress HEENT: sclera anicteric, moist mucus membranes Neck: supple Lungs: clear to auscultation bilaterally Heart: regular rate and rhythm, no murmurs Abd: soft, non-tender, non-distended Ext: no edema Skin: warm/well-perfused Neuro: alert and oriented to self/place, mildly confused, no focal weakness Psych: appropriate affect Objective Data Active Medications Acetaminophen (Acetaminophen 325 Mg Tablet) 650 mg PO Q6H PRN PRN Reason: Pain, Mild (Pain Scale 1-3), fever or headache Lactated Ringer's (Lr) 1,000 mls @ 100 mls/hr IVCONT .Q10H [facility] Last Admin: 05/31/24 04:51 Dose: Not Given Documented By: HYUN Non-Admin Reason: No Access Comments: Dr. Gill made aware, multiple attempts to place IV unsuccessful Ondansetron HCl (Ondansetron Hcl 4 Mg/2 Ml Vial) 4 mg IVPUSH Q8H PRN PRN Reason: Nausea and Vomiting Sodium Chloride (0.9 % Sodium Chloride Flush 3 Ml Syringe) 3 ml IVFLUSH QSHIFT [facility] Last Admin: 05/30/24 19:59 Dose: 3 ml Documented By: HYUN Labs 05/31/24 08:37 05/31/24 08:37 Labs: Laboratory Results - last 24 hr 05/30/24 05/30/24 05/31/24 19:52 20:03 08:37 MCV 88.6 89.0 MCH 28.6 28.9 MCHC 32.3 32.4 RDW 16.0 16.4 H Plt Count 234 240 MPV 10.3 11.0 Immature Gran % (Auto) 0.8 H 0.4 Neut % (Auto) 83.9 H 67.7 Lymph % (Auto) 9.9 L 24.3 [place] % (Auto) 4.6 5.6 Eos % (Auto) 0.3 1.0 Baso % (Auto) 0.5 1.0 Lymph # (Auto) 1.2 2.0 [place] # (Auto) 0.5 0.5 Eos # (Auto) 0.0 0.1 Baso # (Auto) 0.1 0.1 Abs Immat Gran (auto) 0.09 H 0.03 Absolute Neuts (auto) 9.9 H 5.5 Absolute Nucleated RBC 0.000 0.000 Nucleated RBC % (auto) 0.0 0.0 Anion Gap 13 12 Estim Creat Clear Calc TNP TNP Estimated GFR 46 > 60 Random Glucose 132 H 110 Calcium 8.6 8.1 L Blood Type B Negative Antibody Screen NEGATIVE Crossmatch See Detail Assessment and Plan (1) Lower GI bleed: Status: Acute Plan 78yo F with dementia with recent bimalleolar fx s/p ORIF 05/13/24, discharged from [facility] [place] [facility] 05/18, sent to [facility] [place] for SI on 05/28, and admitted to [facility] psych 05/30. Developed lower GI bleed. Had been on prophylactic UFH for DVT ppx with plan to transition to ASA upon discharge from rehab acute blood loss anemia due to LGIB - Stat CTA done last night to identify source of bleeding unfortunately not read til just now. Spoke to Dr Arboleda from Radiology. Bleeding in proximal jejunum. However, she has not had any bleeding since 18:00 yesterday and as such, IR would not be able to embolize her at this point. NPO, GI consult pending. Hold ASA/heparin. dementia mood disorder - continue bupropion, quetiapine, sertraline when taking POs R bimalleolar fx sp ORIF 05/13/24 - per [facility] [place] records, OOB with PT; foot flat TDWB RLE for 6 weeks SI - sitter. However, in speaking with the pt's HCP/spouse of 35 years, the pt has always expressed passive SI without any active plans or gestures. Will have CARE Team re-evaluate her after medically cleared. VTE ppx - SCDs; no heparin given bleeding code - full dispo - TBD In my clinical judgment, the patient requires continued inpatient hospitalization for the following reasons: GI bleed Total time managing care of this patient today: 50 minutes. Quality Stroke Does the patient have a stroke diagnosis?: No VTE Prior VTE?: No VTE Risk Level:: Medical - moderate - high VTE Device Contraindication: N/A - Device Ordered VTE Drug Contraindication: Treatment Not Indicated
--- NOTE | 2024-05-31 11:18 | MHC.CM.PN ---
IMM 05/31/24, Pt. was at [facility] for STR for a fractured ankle, then made statements of SI, so was inpt. in [facility] here. CM met with pt. and her . They live in separate apts. in same blg, is HCP: Valentina Danielle, and takes care of pt. Pt. has a walker, has services from [facility] 3 x a week, homemaker and insurance sales manager. PCP confirmed: Dr. Ulrich. DCP: return to [facility] to complete STR, via BLS. CM to follow and assist with DC plan.
--- NOTE | 2024-05-31 11:39 | PHA.MEDREC ---
Addendum entered by Deann Moody RPh 05/31/24 12:24: Med rec was reviewed. Original Note: Pharmacy Consult ? Medication Reconciliation Pharmacy has completed the medication reconciliation. Used [facility] DC papers and [facility] admission to complete med rec. Sertraline, bupropion, and quetiapine are home meds/doses (confirmed with Valentina), Patient was not taking donepezil at home because Valentina heard it was not going to do any good for her? so she did not give it to her. At [facility], she was getting SQ heparin TID and had directions to switch to aspirin 325 mg daily when discharged from rehab to finish 1 month post surgery course. She was getting aspirin 325 in [facility] psych. Last dose was 05/30 @1457. is aware.
[2024-05-31] MEDS: 0.9 % Sodium Chloride Flush 3 ML SYRINGE IVFLUSH ×2 (13:06→20:18)
[2024-05-31 13:53] LABS: Hematocrit 21.4 % (37.0-47.0)
[2024-05-31 14:05] LABS: Hemoglobin 6.8 g/dl (12.0-16.0)
--- NOTE | 2024-05-31 17:45 | PM.EVENT ---
Event Note Date of Service: 05/31/24 Event Note: GI Consult-Full note dictated. Hx via patient, RN, and EMR. D/W her and HCP, Valentina, as well. Imp: History c/w an UGI bleed based on the description of the bleeding, Abdominal CTA report, and the elevated BUN:Cr. This may represent an AVM, ulcer, tumor, or a Dieulafoy lesion. She appears stable at the present time. Rec: EGD with MAC tomorrow. Full consent has been obtained from the patient and her , including risks of bleeding and perforation. Continue IV PPI, transfusions, and F/U labs. D/W patient and her in detail, and they are comfortable with this plan. Thanks Time Spent With Patient Time: Total time managing care of this patient today ____ minutes.
--- NOTE | 2024-05-31 18:03 | MHC.SHP ---
Pre-Procedural Eval Section A - 24 Hr Update-Section A only Date of Service: 06/01/24 The patient is an INPATIENT: Yes The patient has been examined within 24 hours of the surgical procedure. The History & Physical has been completed within 30 days and I have reviewed it.: Yes Section B - Complete if H&P > 30 days Chief Complaint: GI bleeding Allergies: Allergies Allergy/AdvReac Type Severity Reaction Status Date / Time egg Allergy Unknown gi cramps Verified 12/04/23 14:26 penicillin V Allergy Unknown GI cramps Verified 12/04/23 14:26 codeine [CODEINE] AdvReac Intermediate NAUSEA & Verified 12/04/23 14:26 VOMITING oxycodone [From PERCOCET] AdvReac Intermediate NAUSEA & Verified 12/04/23 14:26 VOMITING Penicillins AdvReac Intermediate ABD. PAIN Verified 12/04/23 14:26 Plan I have reviewed the history and physical and performed a pertinent physical examination on my patient. No changes have occurred unless specified. Time Spent With Patient Time: Total time managing care of this patient today ____ minutes.
[2024-05-31] MEDS: Pantoprazole Sodium 40 MG/10 ML VIAL IVPUSH (20:18)
[2024-05-31 21:55] LABS: Hematocrit 25.1 % (37.0-47.0); Hemoglobin 8.4 g/dl (12.0-16.0)
[2024-06-01] VITALS (16 sets, daily range): BP systolic 105–145; BP diastolic 39–92; PULSE 79–99; RESP 16–20; TEMP 36.3–37; O2SAT 94–98
[2024-06-01] MEDS: Lactated Ringers 1,000 ML 100 ML IVCONT ×2 (01:01→10:59)
[2024-06-01] MEDS: LORazepam 2 MG/ML VIAL 1 MG IVPUSH (01:19)
--- NOTE | 2024-06-01 04:53 | CONS_ITS ---
DATE OF SERVICE: 05/31/2024 REASON FOR CONSULTATION: GI bleeding. HISTORY OF PRESENT ILLNESS: This has been obtained from the patient, her , her RN, and the medical record. The patient is a 78-year-old female, who was transferred from the psychiatric floor to the medical floor due to the onset of GI bleeding. According to the chart and in discussion with the hospitalist, the patient passed a large currant jelly stool. She was noted to have a significant drop in her hemoglobin from 10.8 on May 25 to 8.0 yesterday. Overnight, it dropped to 7.1 this morning and was 6.8 at 1:00 p.m. today. Aside from that 1 large bloody bowel movement she had yesterday, she has had no further episodes of bleeding. There has been no reported vomiting. The patient denies any abdominal pain. The patient did have a colonoscopy with ok in 2016 with removal of some small polyps and the finding of diverticulosis. There is no reported history of ulcer disease. She apparently has not been using any chronic NSAIDs. PAST MEDICAL HISTORY: Notable for some cognitive impairment, colonoscopy as above, some arthritis, depression, hyperlipidemia. She has had a hysterectomy, , and tonsillectomy. She has had a cholecystectomy and previous ERCP with sphincterotomy as the CT scan also shows pneumobilia. She had a recent ankle fracture, which was treated at [facility] and then required admission to short-term rehab. She was transferred from short-term rehab to the Psychiatric service here due to some suicidal ideation and then was transferred to the medical floor due to the GI bleeding as above. SOCIAL HISTORY: She denies tobacco nor alcohol. FAMILY HISTORY: Noncontributory. REVIEW OF SYSTEMS: CONSTITUTIONAL: She presently feels well and reports that she had been having a good appetite. SKIN: Without rash. No pruritus. CARDIAC: No chest pain. PULMONARY: No coughing or hemoptysis. GI: As above. URINARY: No reported dysuria. No hematuria. NEUROLOGIC: No headache or seizures. PHYSICAL EXAMINATION: GENERAL: The patient is a pleasant, alert, comfortable-appearing female. She answers questions appropriately, but needed prompting for the year and the location that she was in. Nonjaundiced. CHEST: Clear. CARDIAC: Normal S1, S2. ABDOMEN: Soft, nondistended, nontender. There is no palpable mass. LABORATORY DATA: As above. Her CT scan of the abdomen with angiography component revealed was felt to be active hemorrhage in the proximal small bowel with accumulation of contrast seen in a proximal loop of jejunum in the left abdomen. A mass or underlying lesion could not be seen. There was no sign of any bleeding in the colon. Unfortunately, although the scan was done prior to midnight, the results of that were not reported to the hospital staff until sometime this morning. White blood cell count 8.2, platelets 240,000. Normal electrolytes. BUN was 50 yesterday and 41 today. LFTs were normal. IMPRESSION: The patient is a 78-year-old female presenting with what appears to be upper gastrointestinal bleeding based on her history, the CT scan report, and the elevated BUN out of proportion to the creatinine. This does not sound like a lower GI bleed in relation to diverticulosis. As such, I would recommend upper endoscopy tomorrow for further evaluation. Given the suspected location of the bleed, she may need to have the exam done with a colonoscope to be able to advance as far down as possible into the small intestine. Full consent has been obtained from the patient and her , who is also the healthcare proxy, including risks of bleeding and perforation. I will continue the IV PPI, transfusions as needed, and follow up laboratories. This has been discussed with the patient's and the patient herself in detail and they are both comfortable with the plan. Thank you for the consultation. MD MELISSA Best/MARY / [phone] KATARINA
[2024-06-01] MEDS: Pantoprazole Sodium 40 MG/10 ML VIAL IVPUSH ×2 (06:02→18:13)
[2024-06-01 06:39] LABS: Hemoglobin 7.5 g/dl (12.0-16.0); Mean Corpuscular HGB Conc 32.6 g/dl (31.0-35.0); Mean Corpuscular Hemoglobin 28.6 pg (27.0-33.0); Mean Corpuscular Volume 87.8 fL (80.0-98.0); Mean Platelet Volume 10.5 fL (9.4-12.3); Platelet Count 192 X10*3/uL (160-400); Red Blood Count 2.62 X10*6/uL (4.20-5.50); Red Cell Distribution Width 16.6 % (11.0-16.0); White Blood Count 7.1 X10*3/uL (4.8-10.8)
[2024-06-01 06:56] LABS: Anion Gap 9 (12-20); Blood Urea Nitrogen 37 mg/dL (9-16); Carbon Dioxide 24 mmol/L (22-29); Chloride 109 mmol/L (96-108); Estimated Glomerular Filt Rate > 60; Glucose Random 102 mg/dL (60-115); Potassium 4.3 mmol/L (3.3-5.1); Sodium 138 mmol/L (135-145)
--- NOTE | 2024-06-01 11:44 | HO.PM.IMPN ---
Subjective Subjective Date of Service: 06/01/24 Interval History: No hematemesis, hematochezia, or melena. No abd pain Review of Systems Review of Systems: Yes all other systems are reviewed and are negative Physical Exam Vital Signs: Vital Signs: Last Vital Signs Temp 97.6 F 06/01/24 11:43 Pulse 82 06/01/24 11:43 Resp 16 06/01/24 11:43 BP 141/66 H 06/01/24 11:43 Pulse Ox 97 06/01/24 08:00 O2 Del Method Room Air 06/01/24 08:00 Gen: in no acute distress HEENT: sclera anicteric, moist mucus membranes Neck: supple Lungs: clear to auscultation bilaterally Heart: regular rate and rhythm, no murmurs Abd: soft, non-tender, non-distended Ext: no edema Skin: warm/well-perfused Neuro: alert and oriented to self/place, mildly confused, no focal weakness Psych: appropriate affect Objective Data Active Medications Acetaminophen (Acetaminophen 325 Mg Tablet) 650 mg PO Q6H PRN PRN Reason: Pain, Mild (Pain Scale 1-3), fever or headache Lactated Ringer's (Lr) 1,000 mls @ 100 mls/hr IVCONT .Q10H [facility] Last Admin: 06/01/24 10:59 Dose: 100 mls/hr Documented By: MARIAM Ondansetron HCl (Ondansetron Hcl 4 Mg/2 Ml Vial) 4 mg IVPUSH Q8H PRN PRN Reason: Nausea and Vomiting Pantoprazole Sodium (Pantoprazole Sodium 40 Mg/10 Ml Vial) 40 mg IVPUSH BID@0630,1630 [facility] Last Admin: 06/01/24 06:02 Dose: 40 mg Documented By: THEA Sodium Chloride (0.9 % Sodium Chloride Flush 3 Ml Syringe) 3 ml IVFLUSH QSHIFT [facility] Last Admin: 06/01/24 09:07 Dose: Not Given Documented By: MARIAM Non-Admin Reason: IV Running Labs 06/01/24 06:24 06/01/24 06:24 Labs: Laboratory Results - last 24 hr 05/30/24 06/01/24 19:52 06:24 MCV 87.8 MCH 28.6 MCHC 32.6 RDW 16.6 H Plt Count 192 MPV 10.5 Absolute Nucleated RBC 0.000 Nucleated RBC % (auto) 0.0 PT 12.0 INR 1.0 Anion Gap 9 L Estim Creat Clear Calc TNP Estimated GFR > 60 Random Glucose 102 Calcium 8.0 L Blood Type B Negative Antibody Screen NEGATIVE Crossmatch See Detail Assessment and Plan (1) Lower GI bleed: Status: Acute Plan d3 for 78yo F with dementia with recent bimalleolar fx s/p ORIF 05/13/24, discharged from [facility] [place] to [facility] 05/18, sent to [facility] for SI on 05/28, and admitted to [facility] psych 05/30. Developed lower GI bleed. Had been on prophylactic UFH for DVT ppx with plan to transition to ASA upon discharge from rehab acute blood loss anemia due to LGIB - Stat CTA done 05/30 to identify source of bleeding unfortunately not read til the next day. No active bleeding since; IR would not be able to embolize her at this point. NPO, GI consulted,. plan EGD today. Hold ASA/heparin - transfused 1u pRBCs 05/30, another unit 05/31, will give another unit today; recheck H+H tomorrow dementia mood disorder - continue bupropion, quetiapine, sertraline when taking POs R bimalleolar fx sp ORIF 05/13/24 - per [facility] records, OOB with PT; foot flat TDWB RLE for 6 weeks SI - sitter. However, in speaking with the pt's HCP/spouse of 35 years, the pt has always expressed passive SI without any active plans or gestures. Will have CARE Team re-evaluate her after medically cleared. VTE ppx - SCDs; no heparin given bleeding code - full dispo - TBD In my clinical judgment, the patient requires continued inpatient hospitalization for the following reasons: GI bleed Total time managing care of this patient today: 40 minutes. Quality Stroke Does the patient have a stroke diagnosis?: No VTE Prior VTE?: No VTE Risk Level:: Medical - moderate - high VTE Device Contraindication: N/A - Device Ordered VTE Drug Contraindication: Treatment Not Indicated
--- NOTE | 2024-06-01 14:17 | MHC.CM.PN ---
EMR reviewed and per MD rounds, pt is not medically cleared for discharge due to management of GI bleed.
--- NOTE | 2024-06-01 15:37 | HO.ANESPROP2 ---
[facility] Active Problems Active Problems: All Active Problems (Updated 05/30/24 @ 18:15 by Lisa Putnam MD) Lower GI bleed (Acute) Medical clearance for psychiatric admission (Acute) Cognitive impairment (Acute) Mammogram declined (Acute) Colonoscopy refused (Acute) COVID-19 vaccine dose declined (Acute) Refused influenza vaccine (Acute) Gait instability (Acute) Chronic hip pain, bilateral (Acute) Depression (Acute) Memory changes (Acute) Obesity (BMI 30-39.9) (Acute) Postmenopause (Acute) Intolerance to BiPAP/CPAP (Acute) Obstructive sleep apnea (Acute) Drusen of eye (Acute) Osteoarthritis (Acute) Tubular adenoma of colon (Acute) Osteopenia of left hip (Acute) Past Medical History Medical History Cognitive impairment Mammogram declined Colonoscopy refused COVID-19 vaccine dose declined Refused influenza vaccine Weakness generalized Gait instability Chronic hip pain, bilateral Keeps losing balance Memory changes Obesity (BMI 30-39.9) Postmenopause Intolerance to BiPAP/CPAP Obstructive sleep apnea Drusen of eye Osteoarthritis Tubular adenoma of colon Menopause Osteopenia of left hip Breast cancer screening by mammogram Positional lightheadedness Recurrent falls Dyslipidemia Depression Family History Family History Father Tuberculosis Substance use disorder Mother Diabetes mellitus Maternal Grandmother Diabetes mellitus Maternal Grandfather Cancer Son No problems noted. Daughter No problems noted. Family history of problems with anesthesia: No Surgical History Surgical History History of hysterectomy Hx of tonsillectomy H/O section History of Problems with Anesthesia: No Social History Social History Household Members: None Household Members Other:: pt lives alone Housing: Apartment Do you presently have visiting nurse or other home services: No Alcohol intake: never Comment: 1:1 sitter Patient Tobacco Use Status: Former Tobacco user Smoked in Last 30 Days: No e-Cigarette/Vaping Use: Never Used Use of substances other than those prescribed or required for medical reasons: No Currently Displaying Signs/Symptoms of Drug Intoxication Withdrawal: No Any prior treatment program specific to substance use: No Have you been hit, kicked, punched, or otherwise hurt by someone within the past year? If so, by whom?: No Do you feel safe in your current relationship?: No Current Relationship Is there a partner from a previous relationship who is making you feel unsafe now?: No Are you made to feel afraid or neglected: No Are you DNR?: No Advance Directives: Yes Advance Directives on File: Yes Advance Directives Date on File: 03/27/23 Do you have a plan to hurt others: No Plan Recently lost weight without trying: No How much weight loss: Unsure Eating poorly because of decreased appetite: Yes Nutrition screen score: 3 Nutrition Risks: Poor intake 0-25% >4 days Patient : No : No Poor oral hygiene: No service: No Current occupational status: retired Cognitive needs: No Hearing needs: No Vision needs: Yes Meds Allergies Allergy/AdvReac Type Severity Reaction Status Date / Time egg Allergy Unknown gi cramps Verified 12/04/23 14:26 penicillin V Allergy Unknown GI cramps Verified 12/04/23 14:26 codeine [CODEINE] AdvReac Intermediate NAUSEA & Verified 12/04/23 14:26 VOMITING oxycodone [From PERCOCET] AdvReac Intermediate NAUSEA & Verified 12/04/23 14:26 VOMITING Penicillins AdvReac Intermediate ABD. PAIN Verified 12/04/23 14:26 Active Medications: Current Medications Acetaminophen (Acetaminophen 325 Mg Tablet) 650 mg PO Q6H PRN PRN Reason: Pain, Mild (Pain Scale 1-3), fever or headache Lactated Ringer's (Lr) 1,000 mls @ 100 mls/hr IVCONT .Q10H [facility] Last Admin: 06/01/24 10:59 Dose: 100 mls/hr Ondansetron HCl (Ondansetron Hcl 4 Mg/2 Ml Vial) 4 mg IVPUSH Q8H PRN PRN Reason: Nausea and Vomiting Pantoprazole Sodium (Pantoprazole Sodium 40 Mg/10 Ml Vial) 40 mg IVPUSH BID@0630,1630 [facility] Last Admin: 06/01/24 06:02 Dose: 40 mg Sodium Chloride (0.9 % Sodium Chloride Flush 3 Ml Syringe) 3 ml IVFLUSH QSHIFT [facility] Last Admin: 06/01/24 09:07 Dose: Not Given Home Medications ?Medication ?Instructions ?Recorded ?Confirmed ?Last Taken ?Type bupropion HCl 300 mg 24 hr tablet, 300 mg PO DAILY@0900 10/14/23 05/31/24 05/30/24 08:44 History extended release quetiapine 25 mg tablet 25 mg PO DAILY 10/14/23 05/31/24 05/30/24 08:44 History sertraline 50 mg tablet 150 mg PO DAILY 10/14/23 05/31/24 05/30/24 08:44 History acetaminophen 325 mg tablet 650 mg PO Q4H PRN Fever 05/31/24 05/31/24 Unknown History docusate sodium 100 mg capsule 100 mg PO BID 05/31/24 05/31/24 Unknown History hydroxyzine HCl 25 mg tablet 25 mg PO Q6H PRN Anxiety 05/31/24 05/31/24 Unknown History magnesium hydroxide 400 mg/5 mL 30 ml PO DAILY PRN Constipation 05/31/24 05/31/24 Unknown History oral suspension (Milk of Chimerix) nicotine (polacrilex) 2 mg gum 2 mg buccal Q2H PRN Nicotine 05/31/24 05/31/24 Unknown History Cravings omeprazole 20 mg capsule,delayed 20 mg PO BID 05/31/24 05/31/24 05/30/24 08:44 History release sennosides 8.6 mg tablet (senna) 8.6 mg PO BID 05/31/24 05/31/24 05/30/24 08:44 History trazodone 50 mg tablet 50 mg PO BEDTIME PRN Insomnia 05/31/24 05/31/24 Unknown History Exam Height,Weight and Vital Signs: Height 5 ft 3 in Weight 94 kg Last Vital Signs Temp 98.6 F 06/01/24 15:04 Pulse 99 06/01/24 15:04 Resp 16 06/01/24 15:04 BP 117/58 L 06/01/24 15:04 Pulse Ox 98 06/01/24 13:52 O2 Del Method Room Air 06/01/24 13:52 Pertinent Lab Results Pertinent Lab Results: Laboratory Tests 05/30/24 05/30/24 05/31/24 19:52 20:03 08:37 WBC 11.8 H 8.2 RBC 2.80 L D 2.46 L Hgb 8.0 L D 7.1 L Hct 24.8 L D 21.9 L MCV 88.6 89.0 MCH 28.6 28.9 MCHC 32.3 32.4 RDW 16.0 16.4 H Plt Count 234 240 MPV 10.3 11.0 Immature Gran % (Auto) 0.8 H 0.4 Neut % (Auto) 83.9 H 67.7 Lymph % (Auto) 9.9 L 24.3 Saline % (Auto) 4.6 5.6 Eos % (Auto) 0.3 1.0 Baso % (Auto) 0.5 1.0 Lymph # (Auto) 1.2 2.0 Saline # (Auto) 0.5 0.5 Eos # (Auto) 0.0 0.1 Baso # (Auto) 0.1 0.1 Abs Immat Gran (auto) 0.09 H 0.03 Absolute Neuts (auto) 9.9 H 5.5 Absolute Nucleated RBC 0.000 0.000 Nucleated RBC % (auto) 0.0 0.0 PT INR Sodium 140 142 Potassium 4.0 4.0 Chloride 109 H 111 H Carbon Dioxide 22 23 Anion Gap 13 12 BUN 50 H 41 H Creatinine 1.14 0.88 Estim Creat Clear Calc TNP TNP Estimated GFR 46 > 60 Random Glucose 132 H 110 Calcium 8.6 8.1 L Blood Type B Negative Antibody Screen NEGATIVE Crossmatch See Detail 05/31/24 05/31/24 06/01/24 13:11 21:45 06:24 WBC 7.1 RBC 2.62 L Hgb 6.8 L* 8.4 L D 7.5 L Hct 21.4 L 25.1 L 23.0 L MCV 87.8 MCH 28.6 MCHC 32.6 RDW 16.6 H Plt Count 192 MPV 10.5 Immature Gran % (Auto) Neut % (Auto) Lymph % (Auto) Saline % (Auto) Eos % (Auto) Baso % (Auto) Lymph # (Auto) Saline # (Auto) Eos # (Auto) Baso # (Auto) Abs Immat Gran (auto) Absolute Neuts (auto) Absolute Nucleated RBC 0.000 Nucleated RBC % (auto) 0.0 PT 12.0 INR 1.0 Sodium 138 Potassium 4.3 Chloride 109 H Carbon Dioxide 24 Anion Gap 9 L BUN 37 H Creatinine 0.83 Estim Creat Clear Calc TNP Estimated GFR > 60 Random Glucose 102 Calcium 8.0 L Blood Type Antibody Screen Crossmatch Airway Mallampati Class: II (edentulous) TM Dist: >3cm Neck ROM: Full Heart: rrr Lungs: cta Assessment and Plan Assessment Anesthesia Assessment: Anesthesia Plan Discussed and Chart Reviewed Final Anesthetic Review Family History of Problems with Anesthesia: No History of Problems with Anesthesia: No NPO: Yes ASA Class: III Final Preanesthetic Review: No Changes in Pt Med Stat, Meds/Allgs Chart Reviewed and Consent Obtained/Reviewed Patient Risk: Intermediate Procedure Risk: Intermediate Anesthetic Plan Anesthetic Plan: MAC: Disposition: Standard PACU
--- NOTE | 2024-06-01 17:17 | PM.EVENT ---
Event Note Date of Service: 06/01/24 Event Note: GI-EGD and small bowel enteroscopy to 110cm with the colonoscope-Full note dictated Monitored Anesthesia care converted to GA with Enodotracheal intubation due to some degree of aspiration Findings: 1. Old blood in stomach, duodenum, and all the way down to 110cm. No helga blood or active bleeding. No source of bleeding seen 2. Hiatal hernia and gastritis 3. No ulcers, no visible vessel, no AVM's Rec: F/U CBC after transfusion. STAT abdominal CTA. If CTA is + she would need transfer to tertiary facility for IR treatment. Watch for pneumonitis/pneumonia, ? cover with antibiotics. Will defer to Hospitalists. D/W Dr. Putnam D/W her and HCP, Valentina. Thanks Time Spent With Patient Time: Total time managing care of this patient today ____ minutes.
--- NOTE | 2024-06-01 17:37 | P.BOP_ITS ---
Brief Operative Note Date of Service: 06/01/24 Pre-op diagnosis: UGI bleed Post-op diagnosis: other (Hiatal hernia, gastritis) Procedure: EGD with small bowel enteroscopy Surgeon: Sumeet Paige MD Anesthesia: GETA Was an Marketing Rotation Associate used for this Procedure?: No Estimated blood loss (mL): 50.0 Pathology: none sent Condition: stable Disposition: PACU
[2024-06-01] MEDS: ondansetron HCL 4 MG/2 ML VIAL IVPUSH (17:40)
[2024-06-01] MEDS: iohexoL 350 MG/ML 100 ML INFUS..BTL 80 ML IV (17:58)
[2024-06-01] MEDS: 0.9 % Sodium Chloride Flush 3 ML SYRINGE IVFLUSH (18:15)
[2024-06-01 18:20] LABS: MANUAL DIFF FLAG NO
[2024-06-01 18:34] LABS: Basophils Absolute Auto 0.1 X10*3/uL (0.0-0.2); Basophils Percent Auto 0.4 % (0-2); Eosinophils Percent Auto 0.3 % (0-4); Hematocrit 22.4 % (37.0-47.0); Hemoglobin 7.5 g/dl (12.0-16.0); Imm Gran Abs Auto 0.25 X10*3/uL (0.00-0.03); Imm Gran Pct Auto 1.6 % (0.0-0.4); Lymphocytes Absolute Auto 1.1 X10*3/uL (1.2-4.9); Mean Corpuscular HGB Conc 33.5 g/dl (31.0-35.0); Mean Corpuscular Hemoglobin 30.5 pg (27.0-33.0); Mean Corpuscular Volume 91.1 fL (80.0-98.0); Monocytes Absolute Auto 0.3 X10*3/uL (0.1-1.2); Monocytes Percent Auto 2.2 % (2-11); Neutrophils Absolute Auto 13.9 x10*3/uL (2.0-8.3); Neutrophils Percent Auto 88.5 % (45-73); Platelet Count 178 X10*3/uL (160-400); Red Blood Count 2.46 X10*6/uL (4.20-5.50); White Blood Count 15.7 X10*3/uL (4.8-10.8)
[2024-06-02] VITALS (9 sets, daily range): BP systolic 116–136; BP diastolic 56–70; PULSE 79–98; RESP 17–24; TEMP 36.3–37.1; O2SAT 95–98
[2024-06-02] MEDS: Acetaminophen 325 MG TABLET 650 MG PO (01:40)
--- NOTE | 2024-06-02 02:40 | OP_ITS ---
DATE OF SERVICE: 06/01/2024 SURGEON: Sumeet Paige MD INDICATIONS: The patient presents for evaluation of upper GI bleeding and abnormal CT angiogram of the abdomen. Full consent has been obtained from the patient and her , who is her healthcare proxy, including risks of bleeding and perforation. PREOPERATIVE DIAGNOSIS: Upper gastrointestinal bleeding. POSTOPERATIVE DIAGNOSIS: PROCEDURE PERFORMED: Esophagogastroduodenoscopy and small bowel enteroscopy. ESTIMATED BLOOD LOSS: COMPLICATIONS: ANESTHESIA: Initially monitored anesthesia care, but this was converted to general anesthesia with endotracheal intubation due to the length of the procedure and her having probably had some aspiration during the procedure itself. Glucagon 1mg IV. ASSISTANTS: SPECIMENS: POSTOPERATIVE DIAGNOSES: Upper gastrointestinal bleeding, hiatal hernia, mild gastritis, old blood seen all the way into the jejunum. DESCRIPTION OF PROCEDURE: The patient was placed in the left lateral decubitus position. The Olympus video gastroscope was passed in the posterior oropharynx and upper esophagus under direct vision. The gastroesophageal junction was visualized at 35 cm. The scope entered the stomach. There was a small to moderate-sized hiatal hernia. The hiatal hernia mucosa appeared normal. In the stomach, was a fair amount of old bloody liquid, but no helga blood. This was all suctioned away. The scope was advanced into the duodenum and then advanced into the proximal jejunum as far as the gastroscope would allow. The duodenum and very proximal jejunum appeared normal. There was no sign of any fresh blood nor old blood. The scope was withdrawn back in the stomach. After a lot of irrigation and suctioning, a good visualization of the stomach was made. I did not visualize any sign of bleeding sites such as ulcer disease, visible vessel, nor angiodysplasias. There was good peristalsis. The scope was retroflexed, visualizing the proximal stomach carefully, which appeared normal as well. The scope was straightened and withdrawn back in the esophagus. The esophageal mucosa appeared normal. The scope was withdrawn from the patient. I then used an Olympus video pediatric colonoscope to intubate the upper esophagus under direct vision. Again, the esophageal mucosa appeared normal. The scope entered the stomach and was advanced to the pylorus. The duodenum was cannulated. I was then able to advance the colonoscope to 110 cm. Initially, I did not visualize any sign of old blood or fresh blood, but as the scope was advanced further, I did visualize the same type of blood that had been in the stomach with old liquid blood. Again, there was no sign of any fresh blood, nor active bleeding. She did receive 1 mg of glucagon IV during the procedure. I did not visualize any sign of ulceration, mass, visible vessel, angiodysplasia, nor any other bleeding lesion. The scope was withdrawn slowly through the small bowel back into the stomach. Again, the inspection of the stomach and duodenum appeared normal. Scope was withdrawn back in the esophagus. The esophageal mucosa appeared normal. Scope was withdrawn from the patient. She tolerated the procedure well and was returned to the recovery area in stable condition. IMPRESSION: 1. Probable small bowel source of bleeding with some reflux of old blood into the stomach, although no discrete site was seen on today's procedure. 2. Hiatal hernia. 3. Gastritis. PLAN: Given the findings, I shall repeat a CT angiogram of the abdomen as soon as possible this evening. She will have followup CBCs as well. She has now received a total of 3 units of blood. If the CT angiogram is positive for ongoing bleeding, as was the 1 on admission 48 hours ago, I would then recommend transfer to a tertiary facility for interventional radiology assessment and treatment. If the CT angiogram is negative for any sign of bleeding and things remain stable, she could remain here and then eventually have a small bowel video capsule study done. I do not think a colonoscopy is presently required based on the findings thus far. She will continue on her IV PPI as well. This has been discussed with her hospitalist, Dr. Putnam. Of note, I did review with him the fact that she did have aspiration and would need to be observed for any sign of pneumonia or pneumonitis. She might benefit with treatment with prophylactic antibiotics in the meantime, but I would leave that decision up to the hospitalist service. This has all been discussed with her and healthcare proxy as well. MD MELISSA Best/MARY / [phone] KATARINA
[2024-06-02] MEDS: Lactated Ringers 1,000 ML 100 ML IVCONT ×2 (03:39→15:59)
[2024-06-02] MEDS: Pantoprazole Sodium 40 MG/10 ML VIAL IVPUSH (05:36)
--- NOTE | 2024-06-02 08:41 | HO.POSTANES ---
Post Anesthesia Evaluation Post Anesthesia Evaluation Date of Service: 06/02/24 Vital Signs: Vital Signs Temp Pulse Resp BP Pulse Ox O2 Del Method 06/02/24 07:06 98.5 F 81 17 127/60 98 Room Air 06/02/24 04:00 98.2 F 79 20 116/56 L 95 Room Air 06/01/24 23:45 97.4 F 83 16 110/52 L 95 Room Air Anesthesia: General Endotracheal-GETA Mental Status: Awake Pain Control: Satisfactory Nausea/Vomiting: Mild Hydration: Adequate Anesthesia-Related Issues: No Anes. Related Issues Comments: Patient complained of pain in her throat and was reassured that it would get better in a few days.
[2024-06-02 09:24] LABS: Chloride 110 mmol/L (96-108); Estimated Glomerular Filt Rate > 60; Potassium 3.9 mmol/L (3.3-5.1)
--- NOTE | 2024-06-02 12:27 | P.PNIM_ITS ---
Subjective Subjective Date of Service: 06/02/24 Interval History: no abd pain 1 episode melena this AM phlebotomy blood draws clotted; refuses further blood draws and HCP also refuses Review of Systems Review of Systems: Yes all other systems are reviewed and are negative Physical Exam 2 Vital Signs: Vital Signs: Last Vital Signs Temp 98.5 F 06/02/24 11:11 Pulse 98 06/02/24 11:11 Resp 17 06/02/24 11:11 BP 132/62 06/02/24 11:11 Pulse Ox 97 06/02/24 11:11 O2 Del Method Room Air 06/02/24 11:11 Gen: in no acute distress HEENT: sclera anicteric, moist but pale mucus membranes Neck: supple Lungs: clear to auscultation bilaterally Heart: regular rate and rhythm, no murmurs Abd: soft, non-tender, non-distended Ext: no edema Skin: warm/well-perfused Neuro: alert and oriented to self/place, mildly confused, no focal weakness Psych: appropriate affect Objective Data Active Medications Acetaminophen (Acetaminophen 325 Mg Tablet) 650 mg PO Q6H PRN PRN Reason: Pain, Mild (Pain Scale 1-3), fever or headache Last Admin: 06/02/24 01:40 Dose: 650 mg Documented By: VENTURA Lactated Ringer's (Lr) 1,000 mls @ 100 mls/hr IVCONT .Q10H [facility] Last Admin: 06/02/24 03:39 Dose: 100 mls/hr Documented By: VENTURA Naloxone HCl (Naloxone Hcl 0.4 Mg/Ml Vial) 0.04 mg IVPUSH Q5M PRN PRN Reason: Excessive sedation or RR < 8 Ondansetron HCl (Ondansetron Hcl 4 Mg/2 Ml Vial) 4 mg IVPUSH Q8H PRN PRN Reason: Nausea and Vomiting Last Admin: 06/01/24 17:40 Dose: 4 mg Documented By: TERESA Pantoprazole Sodium (Pantoprazole Sodium 40 Mg/10 Ml Vial) 40 mg IVPUSH BID@0630,1630 [facility] Last Admin: 06/02/24 05:36 Dose: 40 mg Documented By: VENTURA Sodium Chloride (0.9 % Sodium Chloride Flush 3 Ml Syringe) 3 ml IVFLUSH QSHIFT [facility] Last Admin: 06/02/24 07:31 Dose: Not Given Documented By: LAURITA Non-Admin Reason: IV Running Labs 06/01/24 18:10 06/01/24 06:24 Labs: Laboratory Results - last 24 hr 05/30/24 06/01/24 19:52 18:10 MCV 91.1 MCH 30.5 MCHC 33.5 RDW 16.0 Plt Count 178 MPV 11.0 Immature Gran % (Auto) 1.6 H Neut % (Auto) 88.5 H Lymph % (Auto) 7.[address] [facility] % (Auto) 2.2 Eos % (Auto) 0.3 Baso % (Auto) 0.4 Lymph # (Auto) 1.[address] [facility] # (Auto) 0.3 Eos # (Auto) 0.0 Baso # (Auto) 0.1 Abs Immat Gran (auto) 0.25 H Absolute Neuts (auto) 13.9 H Absolute Nucleated RBC 0.000 Nucleated RBC % (auto) 0.0 Blood Type B Negative Antibody Screen NEGATIVE Crossmatch See Detail Impressions Abdomen/Pelvis CT 06/01/24 17:47 IMPRESSION: 1. Previously seen active arterial hemorrhage within the jejunal is no longer visualized. No active hemorrhage is seen on the current exam. 2. Large hiatal hernia. 3. Diverticulosis. No acute inflammatory process. Electronically signed by: Landon Dahl MD 06/01/2024 07:14 [place] [facility] [place] [facility] Plan (1) Lower GI bleed: Status: Acute Plan d4 for 78yo F with dementia with recent bimalleolar fx s/p ORIF 05/13/24, discharged from [facility] to [facility] 05/18, sent to [facility] for SI on 05/28, and admitted to [facility] karina psych 05/30. Developed acute GI bleed. Had been on prophylactic UFH for DVT ppx with plan to transition to ASA upon discharge from rehab acute blood loss anemia due to GIB - Stat CTA done 05/30 to identify source of bleeding unfortunately not read til the next day showing active proximal jejunum bleed. - EGD/enteroscopy to 110cm 06/[address] Paige: 1. Old blood in stomach, duodenum, and all the way down to 110cm. No helga blood or active bleeding. No source of bleeding seen 2. Hiatal hernia and gastritis 3. No ulcers, no visible vessel, no AVM's No active bleeding since; IR would not be able to embolize her at this point. NPO, GI consulted,. plan EGD today. Hold ASA/heparin - repeat CTA 06/01 with no active bleeding - had melena this AM; monitor and if continues or H+H drop, will need to repeat CTA - transfused 1u pRBCs 05/30, another unit 05/31, another unit 06/01, and will give another unit today; recheck H+H tomorrow; pt and her HCP refuse further blood draws today dementia mood disorder - resume bupropion, quetiapine, sertraline, hydroxyzine R bimalleolar fx sp ORIF 05/13/24 - per [facility] records, OOB with PT; foot flat TDWB RLE for 6 weeks SI - sitter. However, in speaking with the pt's HCP/spouse of 35 years, the pt has always expressed passive SI without any active plans or gestures. Will have CARE Team re-evaluate her VTE ppx - SCDs; no heparin given bleeding code - full dispo - TBD; possibly STR In my clinical judgment, the patient requires continued inpatient hospitalization for the following reasons: GI bleed Total time managing care of this patient today: 45 minutes. Quality Stroke Does the patient have a stroke diagnosis?: No VTE Prior VTE?: No VTE Risk Level:: Medical - moderate - high VTE Device Contraindication: N/A - Device Ordered VTE Drug Contraindication: Treatment Not Indicated
[2024-06-02] MEDS: QUEtiapine Fumarate 25 MG TABLET PO (13:59)
[2024-06-02] MEDS: Sertraline HCL 50 MG TABLET 150 MG PO (13:59)
[2024-06-02 14:40] LABS: Anion Gap 13 (12-20); Blood Urea Nitrogen 35 mg/dL (9-16); Calcium 7.4 mg/dL (8.4-10.2); Carbon Dioxide 18 mmol/L (22-29); Creatinine Clr Calc Pharmacy 65.8; Glucose Random 110 mg/dL (60-115); Sodium 137 mmol/L (135-145)
--- NOTE | 2024-06-02 14:50 | MHC.CM.PN ---
EMR REVIEWED, CM MET W/PT TO DISCUSS DISPO, PT AGREEABLE TO STR AND [facility], CM WILL SEND REQUESTED DOCUMENTS TO [facility]IA [facility], CM WILL CONT TO FOLLOW DC NEEDS.
[2024-06-02] MEDS: 0.9 % Sodium Chloride Flush 3 ML SYRINGE IVFLUSH ×2 (15:59→20:16)
[2024-06-02] MEDS: Omeprazole 20 MG CAPSULE.DR PO (15:59)
--- NOTE | 2024-06-02 16:01 | PC.NURSE ---
pt is doing fine, reported having SI thoughts but no plan so far. ok to Dc sitter. camera in the room, call mello within reach. will keep monitoring.
--- NOTE | 2024-06-02 18:13 | PM.EVENT ---
Event Note Date of Service: 06/02/24 Event Note: GI-Course noted in regard to patient's and HCP's refusal of further care today regarding her labs. Although she did allow a transfusion today. Hopefully things will remain stable without further active bleeding.If she has recurrent bleeding they would need to decide on the level of desired intervention at that time in regard to a repeat abdominal CTA, IR procedure, surgery, etc. Please let me know if I can be of further help while she is here. We can arrange an outpatint video capsule study if she remains stable and they are agreeable to that. Thanks Time Spent With Patient Time: Total time managing care of this patient today ____ minutes.
[2024-06-03] VITALS (15 sets, daily range): BP systolic 96–131; BP diastolic 52–89; PULSE 88–112; RESP 15–20; TEMP 36.7–37.8; O2SAT 92–98
[2024-06-03] MEDS: Lactated Ringers 1,000 ML 100 ML IVCONT ×2 (01:22→13:39)
[2024-06-03] MEDS: Omeprazole 20 MG CAPSULE.DR PO (06:00)
[2024-06-03 08:04] LABS: Mean Corpuscular HGB Conc 33.1 g/dl (31.0-35.0); Mean Corpuscular Hemoglobin 30.6 pg (27.0-33.0); Mean Corpuscular Volume 92.4 fL (80.0-98.0); Mean Platelet Volume 11.7 fL (9.4-12.3); NRBC Pct Auto 0.7 /100WBC (0.0-0.2); Platelet Count 155 X10*3/uL (160-400); Red Blood Count 1.57 X10*6/uL (4.20-5.50); Red Cell Distribution Width 16.7 % (11.0-16.0); White Blood Count 8.6 X10*3/uL (4.8-10.8)
[2024-06-03 08:15] LABS: Hematocrit 14.5 % (37.0-47.0); Hemoglobin 4.8 g/dl (12.0-16.0)
[2024-06-03 08:20] LABS: Anion Gap 10 (12-20); Blood Urea Nitrogen 27 mg/dL (9-16); Calcium 7.2 mg/dL (8.4-10.2); Carbon Dioxide 22 mmol/L (22-29); Chloride 110 mmol/L (96-108); Creatinine Clr Calc Pharmacy 69.4; Estimated Glomerular Filt Rate > 60; Glucose Random 117 mg/dL (60-115); Potassium 4.1 mmol/L (3.3-5.1); Sodium 138 mmol/L (135-145)
--- NOTE | 2024-06-03 08:58 | MHC.CM.PN ---
EMR REVIEWED, CM RECEIVED MESSAGE FROM [facility], THEY CAN NO LONGER OFFER D/T PSYCH COMPONENT, REFERRAL EXPANDED TO [facility] SNF[facility], CM WILL CONT TO FOLLOW.
[2024-06-03 11:22] LABS: Fibrinogen 457 MG/DL (259-690); Prothrombin Time 12.2 SEC (10.9-12.4)
[2024-06-03 11:23] LABS: Mean Corpuscular HGB Conc 31.8 g/dl (31.0-35.0); Mean Corpuscular Hemoglobin 30.7 pg (27.0-33.0); Mean Corpuscular Volume 96.7 fL (80.0-98.0); Mean Platelet Volume 10.9 fL (9.4-12.3); NRBC Pct Auto 0.8 /100WBC (0.0-0.2); Platelet Count 156 X10*3/uL (160-400); Red Blood Count 1.53 X10*6/uL (4.20-5.50); Red Cell Distribution Width 17.6 % (11.0-16.0); White Blood Count 9.5 X10*3/uL (4.8-10.8)
[2024-06-03 11:24] LABS: D Dimer High Sensitivity 318 NG/ML
[2024-06-03 11:26] LABS: Hemoglobin 4.7 g/dl (12.0-16.0)
[2024-06-03 11:27] LABS: Hematocrit 14.8 % (37.0-47.0)
--- NOTE | 2024-06-03 12:09 | PC.NURSE ---
Pt was brought backed to the room after unable to finish ordered ct scan. pt refused while in the middle of scanning. Consent form was completed before sending pt down. pt verbalized just let me with this RN and Director of the unit while having conversation of the importance of following recommended tests and interventions. notified. alesia garcia to monitor
--- NOTE | 2024-06-03 12:55 | HO.HCP ---
Health Care Proxy Invocation Health Care Proxy Declaration: I, ___Lisa Putnam MD , on the date cited below, have determined that, Carmen Redd , lacks the capacity to make or communicate, informed health care decision. This determination is made in accordance with accepted standards of medical judgment and pursuant to [place] 201[place], the [facility] Care Proxy Law. The cause, nature, extent and probable duration of the patient's inapacity are described below: Cause: Dementia Nature: Progressive Extent: Advanced Probable Duration of Patient's Incapacity: Lifetime
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
[2024-06-03] MEDS: LORazepam 2 MG/ML VIAL 0.5 MG IVPUSH (13:38)
[2024-06-03] MEDS: iohexoL 350 MG/ML 100 ML INFUS..BTL IV (14:13)
[2024-06-03] MEDS: ondansetron HCL 4 MG/2 ML VIAL IVPUSH (14:55)
[2024-06-03] MEDS: 0.9 % Sodium Chloride Flush 3 ML SYRINGE IVFLUSH ×2 (14:56→21:32)
--- NOTE | 2024-06-03 17:11 | HO.PM.IMPN ---
Subjective Subjective Date of Service: 06/03/24 Interval History: Had 3 episodes melena yesterday, at least 2 more today. Kept refusing blood draws this AM and also repeat CT angio Per Psych pt has not capacity, so HCP invoked. Finally got labs and T+S. Hb returned 4.7. CT angio without acute small intestinal bleed; dense material in colon -?old blood Expresses passive SI but per pt's HCP/, she has been like this for decades No abd pain Getting 3u pRBCs now. Review of Systems Review of Systems: Yes all other systems are reviewed and are negative Physical Exam Vital Signs: Vital Signs: Last Vital Signs Temp 98.7 F 06/03/24 16:20 Pulse 106 H 06/03/24 16:20 Resp 20 06/03/24 16:20 BP 127/58 L 06/03/24 16:20 Pulse Ox 94 06/03/24 16:00 O2 Del Method Room Air 06/03/24 16:00 Gen: weak, pale HEENT: sclera anicteric, moist but pale mucus membranes Neck: supple Lungs: clear to auscultation bilaterally Heart: tachycardic, no murmurs Abd: soft, non-tender, non-distended Ext: no edema Skin: warm/well-perfused Neuro: alert and oriented to self/place, mildly confused, no focal weakness Psych: restricted affect Objective Data Active Medications Acetaminophen (Acetaminophen 325 Mg Tablet) 650 mg PO Q6H PRN PRN Reason: Pain, Mild (Pain Scale 1-3), fever or headache Last Admin: 06/02/24 01:40 Dose: 650 mg Documented By: VENTURA Bupropion HCl (Bupropion Hcl Xl 300 Mg Tab.Er.24h) 300 mg PO DAILY@0900 [facility] Last Admin: 06/03/24 08:57 Dose: Not Given Documented By: LAURITA Non-Admin Reason: NPO Hydroxyzine HCl (Hydroxyzine Hcl 25 Mg Tablet) 25 mg PO Q6H PRN PRN Reason: Anxiety Lactated Ringer's (Lr) 1,000 mls @ 100 mls/hr IVCONT .Q10H [facility] Last Infusion: 06/03/24 15:42 Dose: 0 mls/hr Documented By: LAURITA Naloxone HCl (Naloxone Hcl 0.4 Mg/Ml Vial) 0.04 mg IVPUSH Q5M PRN PRN Reason: Excessive sedation or RR < 8 Nicotine Polacrilex (Nicotine Polacrilex 2 Mg Gum) 2 mg BUCCAL Q2H PRN PRN Reason: Nicotine Cravings Omeprazole (Omeprazole 20 Mg Capsule.Dr) 20 mg PO BID@0630,1630 [facility] Last Admin: 06/03/24 15:42 Dose: Not Given Documented By: LAURITA Non-Admin Reason: NPO Ondansetron HCl (Ondansetron Hcl 4 Mg/2 Ml Vial) 4 mg IVPUSH Q8H PRN PRN Reason: Nausea and Vomiting Last Admin: 06/03/24 14:55 Dose: 4 mg Documented By: LAURITA Quetiapine Fumarate (Quetiapine Fumarate 25 Mg Tablet) 25 mg PO DAILY [facility] Last Admin: 06/03/24 08:57 Dose: Not Given Documented By: LAURITA Non-Admin Reason: NPO Sertraline HCl (Sertraline Hcl 50 Mg Tablet) 150 mg PO DAILY [facility] Last Admin: 06/03/24 08:57 Dose: Not Given Documented By: LAURITA Non-Admin Reason: NPO Sodium Chloride (0.9 % Sodium Chloride Flush 3 Ml Syringe) 3 ml IVFLUSH QSHIFT [facility] Last Admin: 06/03/24 14:56 Dose: 3 ml Documented By: LAURITA Trazodone HCl (Trazodone Hcl 50 Mg Tablet) 50 mg PO BEDTIME PRN PRN Reason: Insomnia Labs 06/03/24 11:00 06/03/24 06:42 Labs: Laboratory Results - last 24 hr 05/30/24 06/02/24 06/03/24 19:52 08:45 06:42 MCV Cancelled 92.4 MCH Cancelled 30.6 MCHC Cancelled 33.1 RDW Cancelled 16.7 H Plt Count Cancelled 155 L MPV Cancelled 11.7 Absolute Nucleated RBC Cancelled 0.060 H Nucleated RBC % (auto) Cancelled 0.7 H PT INR Fibrinogen D-Dimer High Sensitivty Anion Gap 10 L Estim Creat Clear Calc 69.4 Estimated GFR > 60 Random Glucose 117 H Calcium 7.2 L Blood Type Antibody Screen Crossmatch See Detail 06/03/24 06/03/24 11:00 11:31 MCV 96.7 MCH 30.7 MCHC 31.8 RDW 17.6 H Plt Count 156 L MPV 10.9 Absolute Nucleated RBC 0.080 H Nucleated RBC % (auto) 0.8 H PT 12.2 INR 1.0 Fibrinogen 457 D-Dimer High Sensitivty 318 Anion Gap Estim Creat Clear Calc Estimated GFR Random Glucose Calcium Blood Type B Negative Antibody Screen NEGATIVE Crossmatch See Detail Assessment and Plan (1) Lower GI bleed: Status: Acute Plan d5 for 78yo F with dementia with recent bimalleolar fx s/p ORIF 05/13/24, [place] [facility] [place] [facility] 05/18, sent to [facility] [place] SI on 05/28, and [place] [facility] [place]. Developed acute GI bleed. Had been on prophylactic UFH for DVT ppx with plan to transition to ASA upon discharge from rehab. Suspected source: proximal jejunum. acute blood loss anemia due to GIB - Held heparin and ASA - Stat CTA done 05/30 to identify source of bleeding unfortunately not read til the next day though showing active proximal jejunum bleed; by the time I called for the read, it was too late for IR embolization - EGD/enteroscopy to 110cm 06/[address] Paige: 1. Old blood in stomach, duodenum, and all the way down to 110cm. No helga blood or active bleeding. No source of bleeding seen 2. Hiatal hernia and gastritis 3. No ulcers, no visible vessel, no AVM's - Repeat CTA 06/01 with no active bleeding - Repeat CTA 06/03 with no active bleeding - Transfused 1u pRBCs 05/30, 1u 05/31, 1u 06/01, 1u 06/02; plan 3u today [06/03] then recheck H+H afterwards. INR + FBG normal, so I she is not in DIC. - Pt refused labs 06/02. Tried to refuse again today but determined to NOT have capacity, so HCP invoked. Cannot refuse labs unless HCP also refuses. - Discussed with Dr Paige. He recommends transfer to [facility] or other tertiary care center where IR is on-call 28/01 in case she re-bleeds. But HCP/ Valentina adamantly refuses and doesn't want to talk to Dr Paige, either. I counseled her extensively on the risks of her bleeding again and the difficulty of managing an acute bleed without IR in our hospital until 06/08. She understands the risks but really feels that going to another hospital would be absolutely devastating for the pt and likely to precipitate an even worse psychiatric crisis. I asked Valentina what she would want us to do should the pt bleed again and she said to call her and she will decide in the moment. I reiterated that if she were not to undergo any kind of intervention for bleeding, she would likely pass away in the hospital and would be better served by hospice/comfort care. Valentina again stated that she wants to watch and wait and make a decision if that urgency arises. - As a last-ditch measure, could consider giving IV TXA if she bleeds again, though this is an off-label indication. dementia mood disorder - Holding bupropion, quetiapine, sertraline, hydroxyzine as she is NPO. In speaking with the pt's HCP/spouse of 35 years, the pt has always expressed passive SI without any active plans or gestures, so we discontinud the sitter. R bimalleolar fx sp ORIF 05/13/24 - per [facility] records, OOB with PT; foot flat TDWB RLE for 6 weeks VTE ppx - SCDs; no heparin given bleeding code - full dispo - the plan is eventually for her to resume STR In my clinical judgment, the patient requires continued inpatient hospitalization for the following reasons: GI bleed Total time managing care of this patient today: 95 minutes. Quality Stroke Does the patient have a stroke diagnosis?: No VTE Prior VTE?: No VTE Risk Level:: Medical - moderate - high VTE Device Contraindication: N/A - Device Ordered VTE Drug Contraindication: Treatment Not Indicated
--- NOTE | 2024-06-03 18:57 | PC.NURSE ---
1452 notified by TICKET ATTENDANT w atrial tach 160s. upon assessment, pt shaky, pale, arousable to voice, nausea and vomited clear color, denied chest pain. VS stable oral T 98.8, BP 117/64, HR 123, O2 93% on RA. notified. IV Zofran given w good effect. pt is recieving blood transfusion. will cont to monitor
[2024-06-03] MEDS: Pantoprazole Sodium 40 MG/10 ML VIAL IVPUSH (21:32)
[2024-06-04] VITALS (8 sets, daily range): BP systolic 91–124; BP diastolic 46–60; PULSE 80–89; RESP 15–20; TEMP 36.2–37.4; O2SAT 92–98
[2024-06-04 04:15] LABS: Hemoglobin 8.7 g/dl (12.0-16.0); Mean Corpuscular HGB Conc 34.8 g/dl (31.0-35.0); Mean Corpuscular Hemoglobin 31.9 pg (27.0-33.0); Mean Corpuscular Volume 91.6 fL (80.0-98.0); Mean Platelet Volume 11.4 fL (9.4-12.3); NRBC Pct Auto 0.5 /100WBC (0.0-0.2); Platelet Count 130 X10*3/uL (160-400); Red Blood Count 2.73 X10*6/uL (4.20-5.50); Red Cell Distribution Width 15.9 % (11.0-16.0); White Blood Count 14.8 X10*3/uL (4.8-10.8)
[2024-06-04 04:21] LABS: Prothrombin Time 11.3 SEC (10.9-12.4)
[2024-06-04 04:28] LABS: Anion Gap 11 (12-20); Blood Urea Nitrogen 24 mg/dL (9-16); Calcium 7.2 mg/dL (8.4-10.2); Carbon Dioxide 20 mmol/L (22-29); Chloride 110 mmol/L (96-108); Creatinine Clr Calc Pharmacy 52.9; Estimated Glomerular Filt Rate 56; Glucose Random 149 mg/dL (60-115); Potassium 3.4 mmol/L (3.3-5.1); Sodium 138 mmol/L (135-145)
[2024-06-04] MEDS: Lactated Ringers 1,000 ML 100 ML IVCONT ×2 (06:44→17:25)
[2024-06-04] MEDS: Pantoprazole Sodium 40 MG/10 ML VIAL IVPUSH ×2 (06:55→17:19)
--- NOTE | 2024-06-04 10:21 | HO.PM.IMPN ---
Subjective Subjective Date of Service: 06/04/24 Interval History: Follow up GI bleed no further episodes stable HH Per Psych pt has not capacity, so HCP invoked. Expresses passive SI but per pt's HCP/, she has been like this for decades Review of Systems Review of Systems: Yes all other systems are reviewed and are negative Physical Exam Vital Signs: Vital Signs: Last Vital Signs Temp 97.4 F 06/04/24 07:34 Pulse 81 06/04/24 07:34 Resp 18 06/04/24 07:34 BP 91/58 L 06/04/24 07:34 Pulse Ox 98 06/04/24 07:34 O2 Del Method Room Air 06/04/24 07:34 Appearing in no acute distress lung sounds are clear to auscultation heart regular rate rhythm, clear S1, S2 positive bowel sounds, abdomen is soft, nontender neuro patient is alert x3, no focal deficits Objective Data Active Medications Acetaminophen (Acetaminophen 325 Mg Tablet) 650 mg PO Q6H PRN PRN Reason: Pain, Mild (Pain Scale 1-3), fever or headache Last Admin: 06/02/24 01:40 Dose: 650 mg Documented By: VENTURA Bupropion HCl (Bupropion Hcl Xl 300 Mg Tab.Er.24h) 300 mg PO DAILY@0900 [facility] Last Admin: 06/04/24 08:45 Dose: Not Given Documented By: JOSE Non-Admin Reason: NPO Hydroxyzine HCl (Hydroxyzine Hcl 25 Mg Tablet) 25 mg PO Q6H PRN PRN Reason: Anxiety Lactated Ringer's (Lr) 1,000 mls @ 100 mls/hr IVCONT .Q10H [facility] Last Admin: 06/04/24 06:44 Dose: 100 mls/hr Documented By: ELODIA Naloxone HCl (Naloxone Hcl 0.4 Mg/Ml Vial) 0.04 mg IVPUSH Q5M PRN PRN Reason: Excessive sedation or RR < 8 Nicotine Polacrilex (Nicotine Polacrilex 2 Mg Gum) 2 mg BUCCAL Q2H PRN PRN Reason: Nicotine Cravings Ondansetron HCl (Ondansetron Hcl 4 Mg/2 Ml Vial) 4 mg IVPUSH Q8H PRN PRN Reason: Nausea and Vomiting Last Admin: 06/03/24 14:55 Dose: 4 mg Documented By: LAURITA Pantoprazole Sodium (Pantoprazole Sodium 40 Mg/10 Ml Vial) 40 mg IVPUSH BID@0630,6380 [facility] Last Admin: 06/04/24 06:55 Dose: 40 mg Documented By: ELODIA Quetiapine Fumarate (Quetiapine Fumarate 25 Mg Tablet) 25 mg PO DAILY [facility] Last Admin: 06/04/24 08:46 Dose: Not Given Documented By: JOSE Non-Admin Reason: NPO Sertraline HCl (Sertraline Hcl 50 Mg Tablet) 150 mg PO DAILY [facility] Last Admin: 06/04/24 08:46 Dose: Not Given Documented By: JOSE Non-Admin Reason: NPO Sodium Chloride (0.9 % Sodium Chloride Flush 3 Ml Syringe) 3 ml IVFLUSH QSHIFT [facility] Last Admin: 06/04/24 09:05 Dose: Not Given Documented By: JOSE Non-Admin Reason: IV Running Trazodone HCl (Trazodone Hcl 50 Mg Tablet) 50 mg PO BEDTIME PRN PRN Reason: Insomnia Labs 06/04/24 03:51 06/04/24 03:51 Labs: Laboratory Results - last 24 hr 05/30/24 06/03/24 06/03/24 19:52 11:00 11:31 MCV 96.7 MCH 30.7 MCHC 31.8 RDW 17.6 H Plt Count 156 L MPV 10.9 Absolute Nucleated RBC 0.080 H Nucleated RBC % (auto) 0.8 H PT 12.2 INR 1.0 Fibrinogen 457 D-Dimer High Sensitivty 318 Anion Gap Estim Creat Clear Calc Estimated GFR Random Glucose Calcium Blood Type B Negative Antibody Screen NEGATIVE Crossmatch See Detail See Detail 06/04/24 03:51 MCV 91.6 D MCH 31.9 MCHC 34.8 RDW 15.9 Plt Count 130 L MPV 11.4 Absolute Nucleated RBC 0.080 H Nucleated RBC % (auto) 0.5 H PT 11.3 INR 1.0 Fibrinogen D-Dimer High Sensitivty Anion Gap 11 L Estim Creat Clear Calc 52.9 Estimated GFR 56 Random Glucose 149 H Calcium 7.2 L Blood Type Antibody Screen Crossmatch Assessment and Plan (1) Lower GI bleed: Status: Acute Plan 78yo F with dementia with recent bimalleolar fx s/p ORIF 05/13/24, discharged from [facility] 05/18, sent to [facility] for SI on 05/28, and admitted to [facility] 05/30. Developed acute GI bleed. Had been on prophylactic UFH for DVT ppx with plan to transition to ASA upon discharge from rehab. Suspected source: proximal jejunum. Acute blood loss anemia due to GIB Stable HH today 8.7/25.0 heparin and ASA on hold Stat CTA done 05/30 to identify source of bleeding showing active proximal jejunum bleed; by the time read, it was too late for IR embolization EGD/enteroscopy 06/[address] Paige, no acute bleed, Hiatal hernia and gastritis, No ulcers, no visible vessel, no AVM's Repeat CTA 06/01, 06/03 with no active bleeding Transfused total of 7 units PRBC so far INR + FBG normal, so not in DIC. Pt has been refusing lab draws, but determined to NOT have capacity, so HCP invoked. Cannot refuse labs unless HCP also refuses. Dementia mood disorder patient has hx of expressing passive SI without any active plans or gestures R bimalleolar fx sp ORIF 05/13/24 per [facility] records, OOB with PT; foot flat TDWB RLE for 6 weeks VTE ppx SCDs; no heparin given bleeding Attending Dr. Tarango code full dispo eventually resume STR Case was discussed with Dr Paige. He recommended transfer to [facility] or other tertiary care center where IR is on-call 28/01 in case she re-bleeds. But HCP/ Valentina adamantly refuses and doesn't want to talk to Dr Pagie, either. counseled extensively on the risks of her bleeding again and the difficulty of managing an acute bleed without IR in our hospital until 06/08. She understands the risks but really feels that going to another hospital would be absolutely devastating for the pt and likely to precipitate an even worse psychiatric crisis. asked Valentina what she would want us to do should the pt bleed again and she said to call her and she will decide in the moment. reiterated that if she were not to undergo any kind of intervention for bleeding, she would likely pass away in the hospital and would be better served by hospice/comfort care. Valentina stated that she wants to watch and wait and make a decision if that urgency arises. Total time managing care of this patient today: 95 minutes. Quality Stroke Does the patient have a stroke diagnosis?: No VTE Prior VTE?: No VTE Risk Level:: Medical - moderate - high VTE Device Contraindication: N/A - Device Ordered VTE Drug Contraindication: Treatment Not Indicated
[2024-06-04] MEDS: Acetaminophen 325 MG TABLET 650 MG PO ×2 (12:47→22:15)
[2024-06-04] MEDS: traZODone HCL 50 MG TABLET PO (20:34)
[2024-06-04] MEDS: Sennosides 8.6 MG TABLET PO (20:34)
[2024-06-04] MEDS: Docusate Sodium 100 MG CAPSULE PO (20:34)
[2024-06-04] MEDS: 0.9 % Sodium Chloride Flush 3 ML SYRINGE IVFLUSH (20:34)
[2024-06-05] VITALS (8 sets, daily range): BP systolic 114–132; BP diastolic 54–63; PULSE 72–86; RESP 16–22; TEMP 36–37.7; O2SAT 92–96
[2024-06-05] MEDS: Lactated Ringers 1,000 ML 100 ML IVCONT (04:00)
[2024-06-05] MEDS: Pantoprazole Sodium 40 MG/10 ML VIAL IVPUSH ×2 (06:20→18:36)
[2024-06-05 08:56] LABS: Hematocrit 21.8 % (37.0-47.0); Hemoglobin 7.5 g/dl (12.0-16.0); Mean Corpuscular HGB Conc 34.4 g/dl (31.0-35.0); Mean Corpuscular Hemoglobin 31.5 pg (27.0-33.0); Mean Corpuscular Volume 91.6 fL (80.0-98.0); Platelet Count 126 X10*3/uL (160-400); Red Blood Count 2.38 X10*6/uL (4.20-5.50); Red Cell Distribution Width 16.8 % (11.0-16.0)
--- NOTE | 2024-06-05 09:14 | P.PNIM_ITS ---
Subjective Subjective Date of Service: 06/05/24 Interval History: Follow up GI bleed no further episodes stable HH Per Psych pt has not capacity, so HCP invoked. Expresses passive SI but per pt's HCP/, she has been like this for decades Review of Systems Review of Systems: Yes all other systems are reviewed and are negative Physical Exam 2 Vital Signs: Vital Signs: Last Vital Signs Temp 97.3 F 06/05/24 08:00 Pulse 78 06/05/24 08:00 Resp 20 06/05/24 08:00 BP 120/63 06/05/24 08:00 Pulse Ox 92 06/05/24 08:00 O2 Del Method Room Air 06/05/24 08:00 O2 Flow Rate 1 06/05/24 03:14 Appearing in no acute distress lung sounds are clear to auscultation heart regular rate rhythm, clear S1, S2 positive bowel sounds, abdomen is soft, nontender neuro patient is alert x3, no focal deficits Objective Data Active Medications Acetaminophen (Acetaminophen 325 Mg Tablet) 650 mg PO Q6H PRN PRN Reason: Pain, Mild (Pain Scale 1-3), fever or headache Last Admin: 06/04/24 22:15 Dose: 650 mg Documented By: BREANNA Bupropion HCl (Bupropion Hcl Xl 300 Mg Tab.Er.24h) 300 mg PO DAILY@0900 [facility] Last Admin: 06/04/24 08:45 Dose: Not Given Documented By: JOSE Non-Admin Reason: NPO Docusate Sodium (Docusate Sodium 100 Mg Capsule) 100 mg PO BID [facility] Last Admin: 06/04/24 20:34 Dose: 100 mg Documented By: BREANNA Hydroxyzine HCl (Hydroxyzine Hcl 25 Mg Tablet) 25 mg PO Q6H PRN PRN Reason: Anxiety Magnesium Hydroxide (Milk Of Magnesia 30 Ml Oral.Susp) 30 ml PO DAILY PRN PRN Reason: Constipation Naloxone HCl (Naloxone Hcl 0.4 Mg/Ml Vial) 0.04 mg IVPUSH Q5M PRN PRN Reason: Excessive sedation or RR < 8 Nicotine Polacrilex (Nicotine Polacrilex 2 Mg Gum) 2 mg BUCCAL Q2H PRN PRN Reason: Nicotine Cravings Ondansetron HCl (Ondansetron Hcl 4 Mg/2 Ml Vial) 4 mg IVPUSH Q8H PRN PRN Reason: Nausea and Vomiting Last Admin: 06/03/24 14:55 Dose: 4 mg Documented By: LAURITA Pantoprazole Sodium (Pantoprazole Sodium 40 Mg/10 Ml Vial) 40 mg IVPUSH BID@0630,1630 [facility] Last Admin: 06/05/24 06:20 Dose: 40 mg Documented By: BREANNA Quetiapine Fumarate (Quetiapine Fumarate 25 Mg Tablet) 25 mg PO DAILY [facility] Last Admin: 06/04/24 08:46 Dose: Not Given Documented By: JOSE Non-Admin Reason: NPO Senna (Sennosides 8.6 Mg Tablet) 8.6 mg PO BID [facility] Last Admin: 06/04/24 20:34 Dose: 8.6 mg Documented By: BREANNA Sertraline HCl (Sertraline Hcl 50 Mg Tablet) 150 mg PO DAILY [facility] Last Admin: 06/04/24 08:46 Dose: Not Given Documented By: JOSE Non-Admin Reason: NPO Sodium Chloride (0.9 % Sodium Chloride Flush 3 Ml Syringe) 3 ml IVFLUSH QSHIFT [facility] Last Admin: 06/04/24 20:34 Dose: 3 ml Documented By: BREANNA Trazodone HCl (Trazodone Hcl 50 Mg Tablet) 50 mg PO BEDTIME PRN PRN Reason: Insomnia Last Admin: 06/04/24 20:34 Dose: 50 mg Documented By: BREANNA Labs 06/05/24 08:51 06/05/24 08:51 Labs: Laboratory Results - last 24 hr 06/05/24 08:51 MCV 91.6 MCH 31.5 MCHC 34.4 RDW 16.8 H Plt Count 126 L MPV 11.0 Absolute Nucleated RBC 0.000 Nucleated RBC % (auto) 0.0 Assessment and Plan (1) Lower GI bleed: Status: Acute Plan 78yo F with dementia with recent bimalleolar fx s/p ORIF 05/13/24, [place] [facility] [place] [facility] 05/18, sent to [facility] for SI on 05/28, and [place] [facility] [place]. Developed acute GI bleed. Had been on prophylactic UFH for DVT ppx with plan to transition to ASA upon discharge from rehab. Suspected source: proximal jejunum. Acute blood loss anemia due to GIB heparin and ASA on hold Stat CTA done 05/30 to identify source of bleeding showing active proximal jejunum bleed; by the time read, it was too late for IR embolization EGD/enteroscopy 06/[address] Paige, no acute bleed, Hiatal hernia and gastritis, No ulcers, no visible vessel, no AVM's Repeat CTA 06/01, 06/03 with no active bleeding Transfused total of 7 units PRBC so far INR + FBG normal, so not in DIC. Pt has been refusing lab draws, but determined to NOT have capacity, so HCP invoked. Cannot refuse labs unless HCP also refuses. HH down from yesterday, reconsulted GI to discuss> nothing more to do, if rebleed would need IR from tertiary care facility Dementia mood disorder patient has hx of expressing passive SI without any active plans or gestures R bimalleolar fx sp ORIF 05/13/24 per [facility] [place], OOB with PT; foot flat TDWB RLE for 6 weeks VTE ppx SCDs; no heparin given bleeding Attending Dr. Bryant code full dispo eventually resume STR 06/04 had a discussion with patient's partner regarding the H&H dropping and the fact that patient had a tarry stool. She reported that she wants to make the patient hospice, she stated that the patient told her this morning that she does not want anymore tests to be done. The patient's partner stated that the patient would have to be in a facility because she was unable to care for her at home because she was not ambulating. We will discuss with case management 06/03 Case was discussed with Dr Paige. He recommended transfer to [facility] or other tertiary care center where IR is on-call 28/01 in case she re-bleeds. But HCP/ Valentina adamantly refuses and doesn't want to talk to Dr Paige, either. counseled extensively on the risks of her bleeding again and the difficulty of managing an acute bleed without IR in our hospital until 06/08. She understands the risks but really feels that going to another hospital would be absolutely devastating for the pt and likely to precipitate an even worse psychiatric crisis. asked Valentina what she would want us to do should the pt bleed again and she said to call her and she will decide in the moment. reiterated that if she were not to undergo any kind of intervention for bleeding, she would likely pass away in the hospital and would be better served by hospice/comfort care. Valentina stated that she wants to watch and wait and make a decision if that urgency arises. Total time managing care of this patient today: 95 minutes. Quality Stroke Does the patient have a stroke diagnosis?: No VTE Prior VTE?: No VTE Risk Level:: Medical - moderate - high VTE Device Contraindication: N/A - Device Ordered VTE Drug Contraindication: Treatment Not Indicated
[2024-06-05 09:33] LABS: Anion Gap 8 (12-20); Blood Urea Nitrogen 14 mg/dL (9-16); Carbon Dioxide 24 mmol/L (22-29); Chloride 109 mmol/L (96-108); Creatinine Clr Calc Pharmacy 66.6; Estimated Glomerular Filt Rate > 60; Glucose Random 105 mg/dL (60-115); Potassium 3.3 mmol/L (3.3-5.1); Sodium 139 mmol/L (135-145)
[2024-06-05 09:57] LABS: Iron 20 mcg/dL (30-160); Percent Iron Saturation 13 % (15-50); Total Iron Binding Capacity 158 mcg/dL (228-428); Unsaturated Iron Binding 138 ug/dL
--- NOTE | 2024-06-05 10:13 | P.PNGI_ITS ---
Subjective Subjective Date of Service: 06/05/24 Interval History: patient denies abdominal discomfort Critical Care Time (minutes): 0 Physical Exam 2 Vital Signs: Vital Signs: Last Vital Signs Temp 97.3 F 06/05/24 08:00 Pulse 78 06/05/24 08:00 Resp 20 06/05/24 08:00 BP 120/63 06/05/24 08:00 Pulse Ox 92 06/05/24 08:00 O2 Del Method Room Air 06/05/24 08:00 O2 Flow Rate 1 06/05/24 03:14 GI: Other: abdomen is soft and nontender Objective Data Labs 06/05/24 08:51 06/05/24 08:51 Labs: Laboratory Results - last 24 hr 06/05/24 08:51 WBC 6.0 RBC 2.38 L Hgb 7.5 L Hct 21.8 L MCV 91.6 MCH 31.5 MCHC 34.4 RDW 16.8 H Plt Count 126 L MPV 11.0 Absolute Nucleated RBC 0.000 Nucleated RBC % (auto) 0.0 Sodium 139 Potassium 3.3 Chloride 109 H Carbon Dioxide 24 Anion Gap 8 L BUN 14 Creatinine 0.77 Estim Creat Clear Calc 66.6 Estimated GFR > 60 Random Glucose 105 Calcium 7.0 L Iron 20 L TIBC 158 L % Saturation 13 L Unsat Iron Binding 138 Procedures Date of Service Date of Service: 06/05/24 Progress Note: A&P Assessment and plan (1) Lower GI bleed: Status: Acute Plan hospital course reviewed hct 21.8 today, 25 yesterday agree with recommendations outlined by Dr Paige 06/03 no IR available here today. Time Spent With Patient Time: Total time managing care of this patient today ____ minutes. Quality Stroke Does the patient have a stroke diagnosis?: No VTE Prior VTE?: No VTE Risk Level:: Medical - moderate - high VTE Device Contraindication: N/A - Device Ordered VTE Drug Contraindication: Treatment Not Indicated
[2024-06-05] MEDS: Docusate Sodium 100 MG CAPSULE PO ×2 (10:41→19:51)
[2024-06-05] MEDS: QUEtiapine Fumarate 25 MG TABLET PO (10:41)
[2024-06-05] MEDS: buPROPion HCl XL 300 MG TAB.ER.24H PO (10:41)
[2024-06-05] MEDS: Sennosides 8.6 MG TABLET PO ×2 (10:45→19:51)
[2024-06-05] MEDS: Sertraline HCL 50 MG TABLET 150 MG PO (10:46)
--- NOTE | 2024-06-05 16:04 | MHC.CM.PN ---
This CM spoke with pts spouse/HCP Valentina regarding discharge options. This CM explained that the potential options were hospice in a facility, hospice at home, hospice at [facility], or STR. All options were explained to Valentina, and per Valentina, the pt going home on hospice is not an option as she can't care for her 28/01, and hospice in a facility is not an option as they cannot afford the room and board cost at a facility while pt is on hospice ($400-$500 per day). Per Valentina, she would like us to try to get the pt into STR with the hopes that she can improve and return home afterwards. This CM reviewed the [facility] referral with Valentina, and currently out of 18 local referrals, [facility] only facility interested/following, although they have not given an official bed offer yet. Hospitalist aware.
[2024-06-05] MEDS: 0.9 % Sodium Chloride Flush 3 ML SYRINGE IVFLUSH ×2 (18:38→19:51)
[2024-06-06 03:35] VITALS: BP 122/67; PULSE 75; RESP 16; TEMP 36; O2SAT 96
[2024-06-06 07:24] VITALS: BP 131/67; PULSE 73; RESP 20; TEMP 36.3; O2SAT 96
[2024-06-06] MEDS: Sertraline HCL 50 MG TABLET 150 MG PO (08:24)
[2024-06-06] MEDS: QUEtiapine Fumarate 25 MG TABLET PO (08:25)
[2024-06-06] MEDS: buPROPion HCl XL 300 MG TAB.ER.24H PO (08:25)
[2024-06-06] MEDS: Docusate Sodium 100 MG CAPSULE PO ×2 (08:25→21:13)
[2024-06-06] MEDS: Pantoprazole Sodium 40 MG/10 ML VIAL IVPUSH ×2 (08:26→17:22)
[2024-06-06] MEDS: 0.9 % Sodium Chloride Flush 3 ML SYRINGE IVFLUSH ×3 (08:26→21:13)
[2024-06-06 11:07] VITALS: BP 114/62; PULSE 73; RESP 20; TEMP 36.3; O2SAT 98
--- NOTE | 2024-06-06 13:34 | P.PNIM_ITS ---
Subjective Subjective Date of Service: 06/06/24 Interval History: seen and examined this morning follow up for GI bleeding patient awake, alert no complaints per nurse no dark stools overnight Review of Systems Review of Systems: Yes all other systems are reviewed and are negative Constitutional Constitutional: Denies fever(s) Cardiovascular Cardiovascular: Denies chest pain Gastrointestinal Gastrointestinal: Denies abdominal pain Physical Exam 2 Vital Signs: Vital Signs: Last Vital Signs Temp 97.4 F 06/06/24 11:07 Pulse 73 06/06/24 11:07 Resp 20 06/06/24 11:07 BP 114/62 06/06/24 11:07 Pulse Ox 98 06/06/24 11:07 O2 Del Method Nasal Cannula 06/06/24 11:07 O2 Flow Rate 1 06/06/24 11:07 Oxygen Flow Rate 1 06/05/24 15:00 Const: General: comfortable, alert and awake Nutritional Appearance: obese Resp: Effort & Inspection: normal respiratory effort, able to speak in complete sentences, no respiratory distress and no use of accessory muscles Cardio: Rate: regular rate GI: Inspection: No distended Palpation (GI): Soft to palpation and nontender Extrem: Other: right foot in boot Objective Data Active Medications Acetaminophen (Acetaminophen 325 Mg Tablet) 650 mg PO Q6H PRN PRN Reason: Pain, Mild (Pain Scale 1-3), fever or headache Last Admin: 06/04/24 22:15 Dose: 650 mg Documented By: BREANNA Bupropion HCl (Bupropion Hcl Xl 300 Mg Tab.Er.24h) 300 mg PO DAILY@0900 [facility] Last Admin: 06/06/24 08:25 Dose: 300 mg Documented By: JOSE Docusate Sodium (Docusate Sodium 100 Mg Capsule) 100 mg PO BID [facility] Last Admin: 06/06/24 08:25 Dose: 100 mg Documented By: JOSE Hydroxyzine HCl (Hydroxyzine Hcl 25 Mg Tablet) 25 mg PO Q6H PRN PRN Reason: Anxiety Magnesium Hydroxide (Milk Of Magnesia 30 Ml Oral.Susp) 30 ml PO DAILY PRN PRN Reason: Constipation Naloxone HCl (Naloxone Hcl 0.4 Mg/Ml Vial) 0.04 mg IVPUSH Q5M PRN PRN Reason: Excessive sedation or RR < 8 Nicotine Polacrilex (Nicotine Polacrilex 2 Mg Gum) 2 mg BUCCAL Q2H PRN PRN Reason: Nicotine Cravings Ondansetron HCl (Ondansetron Hcl 4 Mg/2 Ml Vial) 4 mg IVPUSH Q8H PRN PRN Reason: Nausea and Vomiting Last Admin: 06/03/24 14:55 Dose: 4 mg Documented By: LAURITA Pantoprazole Sodium (Pantoprazole Sodium 40 Mg/10 Ml Vial) 40 mg IVPUSH BID@0630,1630 [facility] Last Admin: 06/06/24 08:26 Dose: 40 mg Documented By: JOSE Quetiapine Fumarate (Quetiapine Fumarate 25 Mg Tablet) 25 mg PO DAILY [facility] Last Admin: 06/06/24 08:25 Dose: 25 mg Documented By: JOSE Senna (Sennosides 8.6 Mg Tablet) 8.6 mg PO BID [facility] Last Admin: 06/06/24 10:45 Dose: Not Given Documented By: JOSE Non-Admin Reason: not appropriate Sertraline HCl (Sertraline Hcl 50 Mg Tablet) 150 mg PO DAILY [facility] Last Admin: 06/06/24 08:24 Dose: 150 mg Documented By: JOSE Sodium Chloride (0.9 % Sodium Chloride Flush 3 Ml Syringe) 3 ml IVFLUSH QSHIFT [facility] Last Admin: 06/06/24 08:26 Dose: 3 ml Documented By: JOSE Trazodone HCl (Trazodone Hcl 50 Mg Tablet) 50 mg PO BEDTIME PRN PRN Reason: Insomnia Last Admin: 06/04/24 20:34 Dose: 50 mg Documented By: POTTSSU Labs 06/05/24 08:51 06/05/24 08:51 Assessment and Plan (1) Lower GI bleed: Status: Acute Plan 78yo F with dementia with recent bimalleolar fx s/p ORIF 05/13/24, discharged from [facility] to [facility] 05/18, sent to [facility] for SI on 05/28, and admitted to [facility] 05/30. Developed acute GI bleed. Had been on prophylactic UFH for DVT ppx with plan to transition to ASA upon discharge from rehab. Suspected source: proximal jejunum. Acute blood loss anemia due to GIB heparin and ASA on hold Stat CTA done 05/30 to identify source of bleeding showing active proximal jejunum bleed; by the time read, it was too late for IR embolization EGD/enteroscopy 06/[address] Paige, no acute bleed, Hiatal hernia and gastritis, No ulcers, no visible vessel, no AVM's Repeat CTA 06/01, 06/03 with no active bleeding Transfused total of 7 units PRBC so far INR + FBG normal, so not in DIC. Pt has been refusing lab draws, but determined to NOT have capacity, so HCP invoked. Cannot refuse labs unless HCP also refuses. HH down from yesterday, reconsulted GI to discuss> nothing more to do, if rebleed would need IR from tertiary care facility Dementia mood disorder patient has hx of expressing passive SI without any active plans or gestures R bimalleolar fx sp ORIF 05/13/24 per [facility] records, OOB with PT; foot flat TDWB RLE for 6 weeks VTE ppx SCDs; no heparin given bleeding dispo eventually resume STR 06/06 confirmed with HCP and patient - they do not want any further lab draws, testing, treatment or blood transfusions; signed MOLST form DNR/DNI; CM following for discharge planning likely STR. currently awake, alert and comfortable but if change in condition may be appropriate for GIP. 06/04 had a discussion with patient's partner regarding the H&H dropping and the fact that patient had a tarry stool. She reported that she wants to make the patient hospice, she stated that the patient told her this morning that she does not want anymore tests to be done. The patient's partner stated that the patient would have to be in a facility because she was unable to care for her at home because she was not ambulating. We will discuss with case management 06/03 Case was discussed with Dr Paige. He recommended transfer to [facility] or other tertiary care center where IR is on-call 28/01 in case she re-bleeds. But HCP/ Valentina adamantly refuses and doesn't want to talk to Dr Paige, either. counseled extensively on the risks of her bleeding again and the difficulty of managing an acute bleed without IR in our hospital until 06/08. She understands the risks but really feels that going to another hospital would be absolutely devastating for the pt and likely to precipitate an even worse psychiatric crisis. asked Valenitna what she would want us to do should the pt bleed again and she said to call her and she will decide in the moment. reiterated that if she were not to undergo any kind of intervention for bleeding, she would likely pass away in the hospital and would be better served by hospice/comfort care. Valentina stated that she wants to watch and wait and make a decision if that urgency arises. Quality Stroke Does the patient have a stroke diagnosis?: No VTE Prior VTE?: No VTE Risk Level:: Medical - moderate - high VTE Device Contraindication: N/A - Device Ordered VTE Drug Contraindication: Treatment Not Indicated
--- NOTE | 2024-06-06 14:07 | PC.NURSE ---
report called to blu @ [phone]
[2024-06-06 15:32] VITALS: BP 133/66; PULSE 82; RESP 15; TEMP 37.1; O2SAT 92
[2024-06-06 19:24] VITALS: BP 135/63; PULSE 95; RESP 16; TEMP 36.2; O2SAT 93
[2024-06-06] MEDS: Sennosides 8.6 MG TABLET PO (21:12)
[2024-06-07] VITALS (7 sets, daily range): BP systolic 114–139; BP diastolic 58–84; PULSE 70–81; RESP 16–20; TEMP 36.2–36.9; O2SAT 95–98
[2024-06-07] MEDS: buPROPion HCl XL 300 MG TAB.ER.24H PO (09:20)
[2024-06-07] MEDS: QUEtiapine Fumarate 25 MG TABLET PO (09:21)
[2024-06-07] MEDS: Sertraline HCL 50 MG TABLET 150 MG PO (09:21)
[2024-06-07] MEDS: Sennosides 8.6 MG TABLET PO ×2 (09:21→20:55)
[2024-06-07] MEDS: 0.9 % Sodium Chloride Flush 3 ML SYRINGE IVFLUSH ×3 (09:22→20:58)
--- NOTE | 2024-06-07 12:32 | P.PNIM_ITS ---
Subjective Subjective Date of Service: 06/07/24 Interval History: seen and examined this morning follow up for GI bleeding awake, alert, no abdominal pain no specific complaints no documented bleeding Review of Systems Review of Systems: Yes all other systems are reviewed and are negative Cardiovascular Cardiovascular: Denies chest pain and Denies dyspnea Respiratory Respiratory: Denies dyspnea Gastrointestinal Gastrointestinal: Denies abdominal pain Physical Exam 2 Vital Signs: Vital Signs: Last Vital Signs Temp 97.6 F 06/07/24 11:00 Pulse 74 06/07/24 11:00 Resp 18 06/07/24 11:00 BP 121/58 L 06/07/24 11:00 Pulse Ox 97 06/07/24 11:00 O2 Del Method Nasal Cannula 06/07/24 11:00 O2 Flow Rate 1 06/07/24 11:00 Oxygen Flow Rate 1 06/05/24 15:00 Const: General: comfortable, alert and awake Nutritional Appearance: obese Resp: Effort & Inspection: normal respiratory effort, able to speak in complete sentences, no respiratory distress and no use of accessory muscles Cardio: Rate: regular rate GI: Inspection: No distended Palpation (GI): Soft to palpation and nontender Extrem: Other: right foot in boot Objective Data Active Medications Acetaminophen (Acetaminophen 325 Mg Tablet) 650 mg PO Q6H PRN PRN Reason: Pain, Mild (Pain Scale 1-3), fever or headache Last Admin: 06/04/24 22:15 Dose: 650 mg Documented By: BREANNA Bupropion HCl (Bupropion Hcl Xl 300 Mg Tab.Er.24h) 300 mg PO DAILY@0900 [facility] Last Admin: 06/07/24 09:20 Dose: 300 mg Documented By: JOSE Docusate Sodium (Docusate Sodium 100 Mg Capsule) 100 mg PO BID [facility] Last Admin: 06/07/24 09:27 Dose: Not Given Documented By: JOSE Non-Admin Reason: not appropriate Ferrous Sulfate (Ferrous Sulfate 324 Mg Tablet.Dr) 324 mg PO BIDWM [facility] Hydroxyzine HCl (Hydroxyzine Hcl 25 Mg Tablet) 25 mg PO Q6H PRN PRN Reason: Anxiety Magnesium Hydroxide (Milk Of Magnesia 30 Ml Oral.Susp) 30 ml PO DAILY PRN PRN Reason: Constipation Naloxone HCl (Naloxone Hcl 0.4 Mg/Ml Vial) 0.04 mg IVPUSH Q5M PRN PRN Reason: Excessive sedation or RR < 8 Nicotine Polacrilex (Nicotine Polacrilex 2 Mg Gum) 2 mg BUCCAL Q2H PRN PRN Reason: Nicotine Cravings Omeprazole (Omeprazole 40 Mg Capsule.Dr) 40 mg PO DAILY@0630 [facility] Ondansetron HCl (Ondansetron Hcl 4 Mg/2 Ml Vial) 4 mg IVPUSH Q8H PRN PRN Reason: Nausea and Vomiting Last Admin: 06/03/24 14:55 Dose: 4 mg Documented By: LAURITA Quetiapine Fumarate (Quetiapine Fumarate 25 Mg Tablet) 25 mg PO DAILY [facility] Last Admin: 06/07/24 09:21 Dose: 25 mg Documented By: JOSE Senna (Sennosides 8.6 Mg Tablet) 8.6 mg PO BID [facility] Last Admin: 06/07/24 09:21 Dose: 8.6 mg Documented By: JOSE Sertraline HCl (Sertraline Hcl 50 Mg Tablet) 150 mg PO DAILY [facility] Last Admin: 06/07/24 09:21 Dose: 150 mg Documented By: JOSE Sodium Chloride (0.9 % Sodium Chloride Flush 3 Ml Syringe) 3 ml IVFLUSH QSHIFT [facility] Last Admin: 06/07/24 09:22 Dose: 3 ml Documented By: JOSE Trazodone HCl (Trazodone Hcl 50 Mg Tablet) 50 mg PO BEDTIME PRN PRN Reason: Insomnia Last Admin: 06/04/24 20:34 Dose: 50 mg Documented By: POTTSSU Labs 06/05/24 08:51 06/05/24 08:51 Assessment and Plan (1) Lower GI bleed: Status: Acute (2) Major neurocognitive disorder: Status: Acute Plan 78yo F with dementia with recent bimalleolar fx s/p ORIF 05/13/24, discharged from [facility] to [facility] 05/18, sent to [facility] for SI on 05/28, and admitted to [facility] 05/30. Developed acute GI bleed. Had been on prophylactic UFH for DVT ppx with plan to transition to ASA upon discharge from rehab. Suspected source: proximal jejunum. Acute blood loss anemia due to GIB heparin and ASA on hold Stat CTA done 05/30 to identify source of bleeding showing active proximal jejunum bleed; by the time read, it was too late for IR embolization EGD/enteroscopy 06/[address] Paige, no acute bleed, Hiatal hernia and gastritis, No ulcers, no visible vessel, no AVM's Repeat CTA 06/01, 06/03 with no active bleeding Transfused total of 7 units PRBC so far INR + FBG normal, so not in DIC. Pt has been refusing lab draws, but determined to NOT have capacity, so HCP invoked. Cannot refuse labs unless HCP also refuses. HH down, reconsulted GI to discuss> nothing more to do, if rebleed would need IR from tertiary care facility ultimately pt HCP has decided on no further intervention including lab draws. see notes below Dementia mood disorder patient has hx of expressing passive SI without any active plans or gestures R bimalleolar fx sp ORIF 05/13/24 per [facility] records, OOB with PT; foot flat TDWB RLE for 6 weeks VTE ppx SCDs; no heparin given bleeding dispo eventually resume STR 06/06 confirmed with HCP and patient - they do not want any further lab draws, testing, treatment or blood transfusions; signed MOLST form DNR/DNI; CM following for discharge planning likely STR. currently awake, alert and comfortable but if change in condition may be appropriate for GIP. 06/04 had a discussion with patient's partner regarding the H&H dropping and the fact that patient had a tarry stool. She reported that she wants to make the patient hospice, she stated that the patient told her this morning that she does not want anymore tests to be done. The patient's partner stated that the patient would have to be in a facility because she was unable to care for her at home because she was not ambulating. We will discuss with case management 06/03 Case was discussed with Dr Paige. He recommended transfer to [facility] or other tertiary care center where IR is on-call 28/01 in case she re-bleeds. But HCP/ Valentina adamantly refuses and doesn't want to talk to Dr Paige, either. counseled extensively on the risks of her bleeding again and the difficulty of managing an acute bleed without IR in our hospital until 06/08. She understands the risks but really feels that going to another hospital would be absolutely devastating for the pt and likely to precipitate an even worse psychiatric crisis. asked Valentina what she would want us to do should the pt bleed again and she said to call her and she will decide in the moment. reiterated that if she were not to undergo any kind of intervention for bleeding, she would likely pass away in the hospital and would be better served by hospice/comfort care. Valentina stated that she wants to watch and wait and make a decision if that urgency arises. Quality Stroke Does the patient have a stroke diagnosis?: No VTE Prior VTE?: No VTE Risk Level:: Medical - moderate - high VTE Device Contraindication: N/A - Device Ordered VTE Drug Contraindication: Treatment Not Indicated
[2024-06-07] MEDS: Ferrous Sulfate 324 MG TABLET.DR PO (17:48)
[2024-06-07] MEDS: Docusate Sodium 100 MG CAPSULE PO (20:55)
[2024-06-08] VITALS (8 sets, daily range): BP systolic 120–138; BP diastolic 57–68; PULSE 70–76; RESP 17–20; TEMP 36.2–36.6; O2SAT 92–98
[2024-06-08] MEDS: Omeprazole 40 MG CAPSULE.DR PO (06:03)
--- NOTE | 2024-06-08 09:15 | MHC.CM.PN ---
Addendum entered by Yenifer Stewart, RN 06/08/24 14:09: NO BED OFFERS OR RESPONSE FROM [facility], REFERRAL EXPANDED TO [facility]. Original Note: EMR REVIEWED, PER HOSPITALIST PT CAN BE MEDICALLY CLEARED FOR DC TO STR, [facility] ONLY SN[facility] SHOWING INTEREST, UPDATES SENT, PT WILL ALSO NEED UPDATED P.T. FOR [facility] MEDICARE AUTH, CM WILL CONT TO TO FOLLOW DC NEEDS.
[2024-06-08] MEDS: Docusate Sodium 100 MG CAPSULE PO ×2 (09:16→22:11)
[2024-06-08] MEDS: QUEtiapine Fumarate 25 MG TABLET PO (09:16)
[2024-06-08] MEDS: Sennosides 8.6 MG TABLET PO ×2 (09:16→22:10)
[2024-06-08] MEDS: Ferrous Sulfate 324 MG TABLET.DR PO ×2 (09:16→16:02)
[2024-06-08] MEDS: buPROPion HCl XL 300 MG TAB.ER.24H PO (09:16)
[2024-06-08] MEDS: Sertraline HCL 50 MG TABLET 150 MG PO (09:16)
[2024-06-08] MEDS: 0.9 % Sodium Chloride Flush 3 ML SYRINGE IVFLUSH ×3 (09:17→22:11)
--- NOTE | 2024-06-08 10:50 | HO.PM.IMPN ---
Subjective Subjective Date of Service: 06/08/24 Interval History: Follow up for GI bleeding awake, alert, no abdominal pain no specific complaints no documented bleeding Review of Systems Review of Systems: Yes all other systems are reviewed and are negative Cardiovascular Cardiovascular: Denies chest pain and Denies dyspnea Respiratory Respiratory: Denies dyspnea Gastrointestinal Gastrointestinal: Denies abdominal pain Physical Exam Vital Signs: Vital Signs: Last Vital Signs Temp 97.5 F 06/08/24 08:00 Pulse 75 06/08/24 08:00 Resp 17 06/08/24 08:00 BP 138/67 06/08/24 08:00 Pulse Ox 98 06/08/24 08:00 O2 Del Method Nasal Cannula 06/08/24 08:00 O2 Flow Rate 1 06/08/24 04:00 Oxygen Flow Rate 1 06/07/24 15:00 Appearing in no acute distress lung sounds are clear to auscultation heart regular rate rhythm, clear S1, S2 positive bowel sounds, abdomen is soft, nontender neuro patient is alert x3, no focal deficits Objective Data Active Medications Acetaminophen (Acetaminophen 325 Mg Tablet) 650 mg PO Q6H PRN PRN Reason: Pain, Mild (Pain Scale 1-3), fever or headache Last Admin: 06/04/24 22:15 Dose: 650 mg Documented By: BREANNA Bupropion HCl (Bupropion Hcl Xl 300 Mg Tab.Er.24h) 300 mg PO DAILY@0900 [facility] Last Admin: 06/08/24 09:16 Dose: 300 mg Documented By: CAPRICE Docusate Sodium (Docusate Sodium 100 Mg Capsule) 100 mg PO BID [facility] Last Admin: 06/08/24 09:16 Dose: 100 mg Documented By: CAPRICE Ferrous Sulfate (Ferrous Sulfate 324 Mg Tablet.Dr) 324 mg PO BIDWM [facility] Last Admin: 06/08/24 09:16 Dose: 324 mg Documented By: CAPRICE Hydroxyzine HCl (Hydroxyzine Hcl 25 Mg Tablet) 25 mg PO Q6H PRN PRN Reason: Anxiety Magnesium Hydroxide (Milk Of Magnesia 30 Ml Oral.Susp) 30 ml PO DAILY PRN PRN Reason: Constipation Naloxone HCl (Naloxone Hcl 0.4 Mg/Ml Vial) 0.04 mg IVPUSH Q5M PRN PRN Reason: Excessive sedation or RR < 8 Nicotine Polacrilex (Nicotine Polacrilex 2 Mg Gum) 2 mg BUCCAL Q2H PRN PRN Reason: Nicotine Cravings Omeprazole (Omeprazole 40 Mg Capsule.) 40 mg PO DAILY@0630 [facility] Last Admin: 06/08/24 06:03 Dose: 40 mg Documented By: BREANNA Ondansetron HCl (Ondansetron Hcl 4 Mg/2 Ml Vial) 4 mg IVPUSH Q8H PRN PRN Reason: Nausea and Vomiting Last Admin: 06/03/24 14:55 Dose: 4 mg Documented By: LAURITA Quetiapine Fumarate (Quetiapine Fumarate 25 Mg Tablet) 25 mg PO DAILY [facility] Last Admin: 06/08/24 09:16 Dose: 25 mg Documented By: CAPRICE Senna (Sennosides 8.6 Mg Tablet) 8.6 mg PO BID [facility] Last Admin: 06/08/24 09:16 Dose: 8.6 mg Documented By: CAPRICE Sertraline HCl (Sertraline Hcl 50 Mg Tablet) 150 mg PO DAILY [facility] Last Admin: 06/08/24 09:16 Dose: 150 mg Documented By: CAPRICE Sodium Chloride (0.9 % Sodium Chloride Flush 3 Ml Syringe) 3 ml IVFLUSH QSHIFT [facility] Last Admin: 06/08/24 09:17 Dose: 3 ml Documented By: CAPRICE Trazodone HCl (Trazodone Hcl 50 Mg Tablet) 50 mg PO BEDTIME PRN PRN Reason: Insomnia Last Admin: 06/04/24 20:34 Dose: 50 mg Documented By: BREANNA Labs 06/05/24 08:51 06/05/24 08:51 Labs: Laboratory Results - last 24 hr 06/03/24 06:42 Smear Path Review SEE NOTE Assessment and Plan (1) Lower GI bleed: Status: Acute (2) Major neurocognitive disorder: Status: Acute Plan 78yo F with dementia with recent bimalleolar fx s/p ORIF 05/13/24, discharged from [facility] to [facility] 05/18, sent to [facility] for SI on 05/28, and [place] [facility] 05/[place]. Developed acute GI bleed. Had been on prophylactic UFH for DVT ppx with plan to transition to ASA upon discharge from rehab. Suspected source: proximal jejunum. Acute blood loss anemia due to GIB heparin and ASA on hold Stat CTA done 05/30 to identify source of bleeding showing active proximal jejunum bleed; by the time read, it was too late for IR embolization EGD/enteroscopy 06/[address] Paige, no acute bleed, Hiatal hernia and gastritis, No ulcers, no visible vessel, no AVM's Repeat CTA 06/01, 06/03 with no active bleeding Transfused total of 7 units PRBC so far INR + FBG normal, so not in DIC. Pt has been refusing lab draws, but determined to NOT have capacity, so HCP invoked. Cannot refuse labs unless HCP also refuses. HH down, reconsulted GI to discuss> nothing more to do, if rebleed would need IR from tertiary care facility ultimately pt HCP has decided on no further intervention including lab draws. see notes below Dementia mood disorder patient has hx of expressing passive SI without any active plans or gestures R bimalleolar fx sp ORIF 05/13/24 per [facility] records, OOB with PT; foot flat TDWB RLE for 6 weeks VTE ppx SCDs; no heparin given bleeding dispo eventually resume STR 06/06 confirmed with HCP and patient - they do not want any further lab draws, testing, treatment or blood transfusions; signed MOLST form DNR/DNI; CM following for discharge planning likely STR. currently awake, alert and comfortable but if change in condition may be appropriate for GIP. 06/04 had a discussion with patient's partner regarding the H&H dropping and the fact that patient had a tarry stool. She reported that she wants to make the patient hospice, she stated that the patient told her this morning that she does not want anymore tests to be done. The patient's partner stated that the patient would have to be in a facility because she was unable to care for her at home because she was not ambulating. We will discuss with case management 06/03 Case was discussed with Dr Paige. He recommended transfer to [facility] or other tertiary care center where IR is on-call 28/01 in case she re-bleeds. But HCP/ Valentina adamantly refuses and doesn't want to talk to Dr Paige, either. counseled extensively on the risks of her bleeding again and the difficulty of managing an acute bleed without IR in our hospital until 06/08. She understands the risks but really feels that going to another hospital would be absolutely devastating for the pt and likely to precipitate an even worse psychiatric crisis. asked Valentina what she would want us to do should the pt bleed again and she said to call her and she will decide in the moment. reiterated that if she were not to undergo any kind of intervention for bleeding, she would likely pass away in the hospital and would be better served by hospice/comfort care. Valentina stated that she wants to watch and wait and make a decision if that urgency arises. Quality Stroke Does the patient have a stroke diagnosis?: No VTE Prior VTE?: No VTE Risk Level:: Medical - moderate - high VTE Device Contraindication: N/A - Device Ordered VTE Drug Contraindication: Treatment Not Indicated
[2024-06-08] MEDS: traZODone HCL 50 MG TABLET PO (22:10)
[2024-06-09] VITALS (7 sets, daily range): BP systolic 112–155; BP diastolic 55–79; PULSE 69–83; RESP 16–20; TEMP 36.1–36.7; O2SAT 83–97
[2024-06-09] MEDS: Omeprazole 40 MG CAPSULE.DR PO (06:30)
[2024-06-09] MEDS: Docusate Sodium 100 MG CAPSULE PO ×2 (09:18→22:18)
[2024-06-09] MEDS: Sennosides 8.6 MG TABLET PO ×2 (09:18→22:18)
[2024-06-09] MEDS: QUEtiapine Fumarate 25 MG TABLET PO (09:18)
[2024-06-09] MEDS: Ferrous Sulfate 324 MG TABLET.DR PO ×2 (09:18→16:19)
[2024-06-09] MEDS: buPROPion HCl XL 300 MG TAB.ER.24H PO (09:18)
[2024-06-09] MEDS: Sertraline HCL 50 MG TABLET 150 MG PO (09:18)
[2024-06-09] MEDS: 0.9 % Sodium Chloride Flush 3 ML SYRINGE IVFLUSH ×3 (09:19→22:19)
--- NOTE | 2024-06-09 10:34 | HO.PM.IMPN ---
Subjective Subjective Date of Service: 06/09/24 Interval History: Follow up for GI bleeding awake, alert, no abdominal pain no specific complaints no documented bleeding Review of Systems Review of Systems: Yes all other systems are reviewed and are negative Cardiovascular Cardiovascular: Denies chest pain and Denies dyspnea Respiratory Respiratory: Denies dyspnea Gastrointestinal Gastrointestinal: Denies abdominal pain Physical Exam Vital Signs: Vital Signs: Last Vital Signs Temp 97.1 F 06/09/24 08:00 Pulse 76 06/09/24 08:00 Resp 19 06/09/24 08:00 BP 155/79 H 06/09/24 08:00 Pulse Ox 95 06/09/24 08:00 O2 Del Method Room Air 06/09/24 08:00 O2 Flow Rate 1 06/08/24 12:00 Oxygen Flow Rate 1 06/07/24 15:00 Appearing in no acute distress lung sounds are clear to auscultation heart regular rate rhythm, clear S1, S2 positive bowel sounds, abdomen is soft, nontender neuro patient is alert x3, no focal deficits Bruising to both arms Objective Data Active Medications Acetaminophen (Acetaminophen 325 Mg Tablet) 650 mg PO Q6H PRN PRN Reason: Pain, Mild (Pain Scale 1-3), fever or headache Last Admin: 06/04/24 22:15 Dose: 650 mg Documented By: BREANNA Bupropion HCl (Bupropion Hcl Xl 300 Mg Tab.Er.24h) 300 mg PO DAILY@0900 [facility] Last Admin: 06/09/24 09:18 Dose: 300 mg Documented By: ADITYA Docusate Sodium (Docusate Sodium 100 Mg Capsule) 100 mg PO BID [facility] Last Admin: 06/09/24 09:18 Dose: 100 mg Documented By: ADITYA Ferrous Sulfate (Ferrous Sulfate 324 Mg Tablet.Dr) 324 mg PO BIDWM [facility] Last Admin: 06/09/24 09:18 Dose: 324 mg Documented By: ADITYA Hydroxyzine HCl (Hydroxyzine Hcl 25 Mg Tablet) 25 mg PO Q6H PRN PRN Reason: Anxiety Magnesium Hydroxide (Milk Of Magnesia 30 Ml Oral.Susp) 30 ml PO DAILY PRN PRN Reason: Constipation Naloxone HCl (Naloxone Hcl 0.4 Mg/Ml Vial) 0.04 mg IVPUSH Q5M PRN PRN Reason: Excessive sedation or RR < 8 Nicotine Polacrilex (Nicotine Polacrilex 2 Mg Gum) 2 mg BUCCAL Q2H PRN PRN Reason: Nicotine Cravings Omeprazole (Omeprazole 40 Mg Capsule.Dr) 40 mg PO DAILY@0630 [facility] Last Admin: 06/09/24 06:30 Dose: 40 mg Documented By: YOLI Ondansetron HCl (Ondansetron Hcl 4 Mg/2 Ml Vial) 4 mg IVPUSH Q8H PRN PRN Reason: Nausea and Vomiting Last Admin: 06/03/24 14:55 Dose: 4 mg Documented By: LAURITA Quetiapine Fumarate (Quetiapine Fumarate 25 Mg Tablet) 25 mg PO DAILY [facility] Last Admin: 06/09/24 09:18 Dose: 25 mg Documented By: ADITYA Senna (Sennosides 8.6 Mg Tablet) 8.6 mg PO BID [facility] Last Admin: 06/09/24 09:18 Dose: 8.6 mg Documented By: ADITYA Sertraline HCl (Sertraline Hcl 50 Mg Tablet) 150 mg PO DAILY [facility] Last Admin: 06/09/24 09:18 Dose: 150 mg Documented By: ADITYA Sodium Chloride (0.9 % Sodium Chloride Flush 3 Ml Syringe) 3 ml IVFLUSH QSHIFT [facility] Last Admin: 06/09/24 09:19 Dose: 3 ml Documented By: ADITYA Trazodone HCl (Trazodone Hcl 50 Mg Tablet) 50 mg PO BEDTIME PRN PRN Reason: Insomnia Last Admin: 06/08/24 22:10 Dose: 50 mg Documented By: YOLI Labs 06/05/24 08:51 06/05/24 08:51 Assessment and Plan (1) Lower GI bleed: Status: Acute (2) Major neurocognitive disorder: Status: Acute Plan 78yo F with dementia with recent bimalleolar fx s/p ORIF 05/13/24, [place] [facility] [place] [facility] [place], sent [place] [facility] [place] on 05/28[place] and admitted to [facility] karina psych 05/30. Developed acute GI bleed. Had been on prophylactic UFH for DVT ppx with plan to transition to ASA upon discharge from rehab. Suspected source: proximal jejunum. Acute blood loss anemia due to GIB heparin and ASA on hold Stat CTA done 05/30 to identify source of bleeding showing active proximal jejunum bleed; by the time read, it was too late for IR embolization EGD/enteroscopy 06/[address] Paige, no acute bleed, Hiatal hernia and gastritis, No ulcers, no visible vessel, no AVM's Repeat CTA 06/01, 06/03 with no active bleeding Transfused total of 7 units PRBC INR + FBG normal, so no DIC. HH down 06/05, reconsulted GI > nothing more to do, if rebleed would need IR from tertiary care facility ultimately pts invoked HCP has decided on no further intervention (patient has been refusing labs) including lab draws. see notes below Dementia mood disorder patient has hx of expressing passive SI without any active plans or gestures R bimalleolar fx sp ORIF 05/13/24 per [facility] [place], [place]OB with PT; foot flat TDWB RLE for 6 weeks VTE ppx SCDs; no heparin given bleeding Attending Dr. Bryant DNR/DNI dispo eventually resume STR 06/09 Patient and partner requests new capacity evaluation 06/06 confirmed with HCP and patient - they do not want any further lab draws, testing, treatment or blood transfusions; signed MOLST form DNR/DNI; CM following for discharge planning likely STR. currently awake, alert and comfortable but if change in condition may be appropriate for GIP. 06/04 had a discussion with patient's partner regarding the H&H dropping and the fact that patient had a tarry stool. She reported that she wants to make the patient hospice, she stated that the patient told her this morning that she does not want anymore tests to be done. The patient's partner stated that the patient would have to be in a facility because she was unable to care for her at home because she was not ambulating. We will discuss with case management 06/03 Case was discussed with Dr Paige. He recommended [place] [facility] [place] other tertiary care center where IR is on-call 28/01 in case she re-bleeds. But HCP/ Valentina adamantly refuses and doesn't want to talk to Dr Paige, either. counseled extensively on the risks of her bleeding again and the difficulty of managing an acute bleed without IR in our hospital until 06/08. She understands the risks but really feels that going to another hospital would be absolutely devastating for the pt and likely to precipitate an even worse psychiatric crisis. asked Valentina what she would want us to do should the pt bleed again and she said to call her and she will decide in the moment. reiterated that if she were not to undergo any kind of intervention for bleeding, she would likely pass away in the hospital and would be better served by hospice/comfort care. Valentina stated that she wants to watch and wait and make a decision if that urgency arises. Quality Stroke Does the patient have a stroke diagnosis?: No VTE Prior VTE?: No VTE Risk Level:: Medical - moderate - high VTE Device Contraindication: N/A - Device Ordered VTE Drug Contraindication: Treatment Not Indicated
--- NOTE | 2024-06-09 11:09 | PC.NURSE ---
Pt very pleasant this morning, took meds with no issues. Pt agreeable to getting up, up to recliner with no issues. Safety and fall precautions maintained. Call mello within reach. Pt resting comfortably
--- NOTE | 2024-06-09 14:27 | MHC.CM.PN ---
STR bed offer received from [facility] rehab, they are pursuing insurance auth. Pts spouse/HCP Valentina aware and in agreement with discharge plan.
[2024-06-09] MEDS: traZODone HCL 50 MG TABLET PO (22:18)
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
[2024-06-10] VITALS (7 sets, daily range): BP systolic 105–142; BP diastolic 50–63; PULSE 69–79; RESP 16–20; TEMP 36.2–36.9; O2SAT 93–97
[2024-06-10] MEDS: Omeprazole 40 MG CAPSULE.DR PO (05:51)
[2024-06-10] MEDS: Sertraline HCL 50 MG TABLET 150 MG PO (08:36)
[2024-06-10] MEDS: Ferrous Sulfate 324 MG TABLET.DR PO ×2 (08:37→17:00)
[2024-06-10] MEDS: QUEtiapine Fumarate 25 MG TABLET PO (08:37)
[2024-06-10] MEDS: Docusate Sodium 100 MG CAPSULE PO (08:37)
[2024-06-10] MEDS: Sennosides 8.6 MG TABLET PO (08:37)
[2024-06-10] MEDS: buPROPion HCl XL 300 MG TAB.ER.24H PO (08:37)
[2024-06-10] MEDS: 0.9 % Sodium Chloride Flush 3 ML SYRINGE IVFLUSH ×3 (08:40→22:09)
--- NOTE | 2024-06-10 10:27 | MHC.CM.PN ---
Addendum entered by Yenifer Stewart RN 06/10/24 15:52: TERESA ALBERTO HAS INSURANCE AUTH FROM [employer], VENESSA FROM [facility] OFFICE IN EARLY IN SHIFT AND REPORTS APPROVAL WILL LIKELY BE TOMORROW, HOSPITALIST UPDATED. Original Note: EMR REVIEWED, TERESA ALBERTO NOTIFIED VIA CAREPORT THAT PT CAN BE CLEARED FOR DC TO STR TODAY PENDING AUTH, CM REQUESTED UPDATED P.T. NOTE, CM WILL CONT TO FOLLOW DC NEEDS. PT WILL NEED [facility] FOR BLS TRANSPORT.
--- NOTE | 2024-06-10 11:55 | HO.PM.IMPN ---
Subjective Subjective Date of Service: 06/10/24 Interval History: no active complaints, but poor insight into medical conditions Physical Exam Vital Signs: Vital Signs: Last Vital Signs Temp 97.4 F 06/10/24 11:37 Pulse 70 06/10/24 11:37 Resp 18 06/10/24 11:37 BP 119/58 L 06/10/24 11:37 Pulse Ox 96 06/10/24 11:37 O2 Del Method Room Air 06/10/24 11:37 O2 Flow Rate 1 06/08/24 12:00 Oxygen Flow Rate 1 06/07/24 15:00 alert, no acute distress, poor insight Objective Data Active Medications Acetaminophen (Acetaminophen 325 Mg Tablet) 650 mg PO Q6H PRN PRN Reason: Pain, Mild (Pain Scale 1-3), fever or headache Last Admin: 06/04/24 22:15 Dose: 650 mg Documented By: BREANNA Bupropion HCl (Bupropion Hcl Xl 300 Mg Tab.Er.24h) 300 mg PO DAILY@0900 [facility] Last Admin: 06/10/24 08:37 Dose: 300 mg Documented By: CHARMAINE Docusate Sodium (Docusate Sodium 100 Mg Capsule) 100 mg PO BID [facility] Last Admin: 06/10/24 08:37 Dose: 100 mg Documented By: CHARMAINE Ferrous Sulfate (Ferrous Sulfate 324 Mg Tablet.) 324 mg PO BIDWM [facility] Last Admin: 06/10/24 08:37 Dose: 324 mg Documented By: CHARMAINE Hydroxyzine HCl (Hydroxyzine Hcl 25 Mg Tablet) 25 mg PO Q6H PRN PRN Reason: Anxiety Magnesium Hydroxide (Milk Of Magnesia 30 Ml Oral.Susp) 30 ml PO DAILY PRN PRN Reason: Constipation Naloxone HCl (Naloxone Hcl 0.4 Mg/Ml Vial) 0.04 mg IVPUSH Q5M PRN PRN Reason: Excessive sedation or RR < 8 Nicotine Polacrilex (Nicotine Polacrilex 2 Mg Gum) 2 mg BUCCAL Q2H PRN PRN Reason: Nicotine Cravings Omeprazole (Omeprazole 40 Mg Capsule.) 40 mg PO DAILY@0630 [facility] Last Admin: 06/10/24 05:51 Dose: 40 mg Documented By: BREALAMJesus Ondansetron HCl (Ondansetron Hcl 4 Mg/2 Ml Vial) 4 mg IVPUSH Q8H PRN PRN Reason: Nausea and Vomiting Last Admin: 06/03/24 14:55 Dose: 4 mg Documented By: LAURITA Quetiapine Fumarate (Quetiapine Fumarate 25 Mg Tablet) 25 mg PO DAILY [facility] Last Admin: 06/10/24 08:37 Dose: 25 mg Documented By: CHARMAINE Senna (Sennosides 8.6 Mg Tablet) 8.6 mg PO BID [facility] Last Admin: 06/10/24 08:37 Dose: 8.6 mg Documented By: CHARMAINE Sertraline HCl (Sertraline Hcl 50 Mg Tablet) 150 mg PO DAILY [facility] Last Admin: 06/10/24 08:36 Dose: 150 mg Documented By: CHARMAINE Sodium Chloride (0.9 % Sodium Chloride Flush 3 Ml Syringe) 3 ml IVFLUSH QSHIFT [facility] Last Admin: 06/10/24 08:40 Dose: 3 ml Documented By: CHARMAINE Trazodone HCl (Trazodone Hcl 50 Mg Tablet) 50 mg PO BEDTIME PRN PRN Reason: Insomnia Last Admin: 06/09/24 22:18 Dose: 50 mg Documented By: LAFLAMC Labs 06/05/24 08:51 06/05/24 08:51 Assessment and Plan (1) Lower GI bleed: Status: Acute (2) Major neurocognitive disorder: Status: Acute Plan 78F [facility] uspecified dementia with recent bimalleolar fx s/p ORIF 05/13/24, discharged from [facility] to [facility] 05/18/24, sent to [facility] for SI on 05/28/24, and admitted to [facility] psych 05/30/24. Developed acute GI bleed. Had been on prophylactic UFH for DVT ppx with plan to transition to ASA upon discharge from rehab. Suspected source: proximal jejunum. Acute blood loss anemia due to GIB heparin and ASA on hold Stat CTA done 05/30 to identify source of bleeding showing active proximal jejunum bleed; by the time read, it was too late for IR embolization EGD/enteroscopy 06/[address] Paige, no acute bleed, Hiatal hernia and gastritis, No ulcers, no visible vessel, no AVM's Repeat CTA 06/01, 06/03 with no active bleeding Transfused total of 7 units PRBC INR + FBG normal, so no DIC. HH down 06/05, reconsulted GI > nothing more to do, if rebleed would need IR from tertiary care facility ultimately pts invoked HCP (plan for reeval today) has decided on no further intervention (patient has been refusing labs) including lab draws. see notes below Dementia mood disorder patient has hx of expressing passive SI without any active plans or gestures R bimalleolar fx sp ORIF 05/13/24 per [facility] records, OOB with PT; foot flat TDWB RLE for 6 weeks VTE ppx SCDs; no heparin given bleeding DNR/DNI dispo eventually resume STR 06/09 Patient and partner requests new capacity evaluation 06/06 confirmed with HCP and patient - they do not want any further lab draws, testing, treatment or blood transfusions; signed MOLST form DNR/DNI; CM following for discharge planning likely STR. currently awake, alert and comfortable but if change in condition may be appropriate for GIP. 06/04 had a discussion with patient's partner regarding the H&H dropping and the fact that patient had a tarry stool. She reported that she wants to make the patient hospice, she stated that the patient told her this morning that she does not want anymore tests to be done. The patient's partner stated that the patient would have to be in a facility because she was unable to care for her at home because she was not ambulating. We will discuss with case management 06/03 Case was discussed with Dr Paige. He recommended transfer to [facility] or other tertiary care center where IR is on-call 28/01 in case she re-bleeds. But HCP/ Valentina adamantly refuses and doesn't want to talk to Dr Paige, either. counseled extensively on the risks of her bleeding again and the difficulty of managing an acute bleed without IR in our hospital until 06/08. She understands the risks but really feels that going to another hospital would be absolutely devastating for the pt and likely to precipitate an even worse psychiatric crisis. asked Valentina what she would want us to do should the pt bleed again and she said to call her and she will decide in the moment. reiterated that if she were not to undergo any kind of intervention for bleeding, she would likely pass away in the hospital and would be better served by hospice/comfort care. Valentina stated that she wants to watch and wait and make a decision if that urgency arises. Quality Stroke Does the patient have a stroke diagnosis?: No VTE Prior VTE?: No VTE Risk Level:: Medical - moderate - high VTE Device Contraindication: N/A - Device Ordered VTE Drug Contraindication: Treatment Not Indicated
[2024-06-11] VITALS (7 sets, daily range): BP systolic 105–156; BP diastolic 55–68; PULSE 67–96; RESP 15–18; TEMP 36.5–37.4; O2SAT 93–96
[2024-06-11] MEDS: Omeprazole 40 MG CAPSULE.DR PO (04:02)
[2024-06-11 08:00] LABS: Hemoglobin 8.2 g/dl (12.0-16.0); Mean Corpuscular HGB Conc 31.5 g/dl (31.0-35.0); Mean Corpuscular Hemoglobin 29.9 pg (27.0-33.0); Mean Corpuscular Volume 94.9 fL (80.0-98.0); Platelet Count 314 X10*3/uL (160-400); Red Blood Count 2.74 X10*6/uL (4.20-5.50); Red Cell Distribution Width 15.5 % (11.0-16.0); White Blood Count 7.2 X10*3/uL (4.8-10.8)
[2024-06-11 08:24] LABS: Anion Gap 11 (12-20); Blood Urea Nitrogen 6 mg/dL (9-16); Calcium 8.3 mg/dL (8.4-10.2); Carbon Dioxide 25 mmol/L (22-29); Chloride 107 mmol/L (96-108); Creatinine Clr Calc Pharmacy 66.6; Estimated Glomerular Filt Rate > 60; Glucose Fasting 94 mg/dL (60-99); Potassium 3.6 mmol/L (3.3-5.1); Sodium 139 mmol/L (135-145)
[2024-06-11] MEDS: Sertraline HCL 50 MG TABLET 150 MG PO (08:59)
[2024-06-11] MEDS: Docusate Sodium 100 MG CAPSULE PO (08:59)
[2024-06-11] MEDS: buPROPion HCl XL 300 MG TAB.ER.24H PO (08:59)
[2024-06-11] MEDS: Ferrous Sulfate 324 MG TABLET.DR PO ×2 (09:00→17:52)
[2024-06-11] MEDS: QUEtiapine Fumarate 25 MG TABLET PO (09:00)
[2024-06-11] MEDS: Sennosides 8.6 MG TABLET PO (09:00)
[2024-06-11] MEDS: 0.9 % Sodium Chloride Flush 3 ML SYRINGE IVFLUSH (09:00)
--- NOTE | 2024-06-11 09:30 | P.DS_ITS ---
DS: Providers Provider Date of Service: 06/12/24 Date of admission: 05/30/24 19:13 Date of discharge: 06/12/24 Primary care physician: Annie Ulrich MD Consults: 05/30/24 18:47 Consult to Gastroenterology Routine Consulting Provider: [facility] Reason for consultation: LGIB 06/02/24 12:15 Consult to Care Team Routine Comment: Reason for consultation: ?d/c sitter; per longtime passive SI, no active plan 06/03/24 11:53 Consult to Psychiatry Stat Consulting Provider: [facility] Psych Covering Reason for consultation: Critical life threatning bleeding. Refusing lab draws. Now refusing CT 06/05/24 09:14 Consult to Gastroenterology Routine Consulting Provider: Klever March Reason for consultation: anemia 06/09/24 10:34 Consult to Psychiatry Routine Consulting Provider: [facility] Psych Covering Reason for consultation: capacity re-eval DS: Diagnosis Discharge Diagnosis (1) Major neurocognitive disorder: Status: Acute (2) Lower GI bleed: Status: Acute DS: Summary Hospital Course Hospital Course: from initial hpi: 78yo F who was admitted to the geriatric psychiatry unit today from [place] [facility], where she was sent from [facility] on 05/28/24, where she was undergoing rehabilitation after suffering a R ankle bimalleolar fracture and undergoing ORIF at [facility] on 05/13/24. She was discharged to [facility] on 05/18/24 on SQ UFH to transition to ASA for DVT prophylaxis. She was admitted to the psychiatry due to suicidal ideation. She was feeling fine today but then had several episodes of non-bloody non-bilious vomiting. She subsequently had a large grossly bloody bowel movement. She denies any lightheadedness, shortness of breath, or chest pain. No abdominal pain. She has not had a GI bleed before. Hb at [facility] on 05/15/24 was 10.6. Her last colonoscopy was done by Dr Sumeet Paige on 04/08/17 and showed small colonic polyps, diverticulosis, and small internal hemorrhoids. Currently she is awake and alert and oriented. BP is 98/52, HR 84, RR 16, SaO2 98 on room air. hospital course: Patient was admitted for acute blood loss anemia due to small bowel GI bleed. Her heparin and aspirin were discontinued on 05/[address] angio of abdomen which identified source of bleeding at the proximal jejunum but by the time of the read it was too late for IR embolization. Patient underwent EGD/enteroscopy on 06/[address] Paige with no active bleed identified. Repeat CT angio on 06/01 and 1126 did not show active bleeding. Over course of hospitalization patient w as transfused a total of 7 units PRBC and hemoglobin is between 8 and 9 and stable at time of discharge. Patient has not had any further bleeding for about 1 week. Due to unspecified dementia patient was seen by Psychiatry who felt that healthcare proxy should be invoked inpatient lacks capacity to make most medical decision, however, could still possibly make some simple decisions that she demonstrates understanding of. Healthcare proxy decided on no further interventions such as colonoscopy. However, if patient does rebleed and goals change would recommend pursuing care at tertiary center as would need IR for embolization there. For recent right bimalleolar fracture status post ORIF on 05/13/2020 patient remains foot flat TDWB of the right lower extremity until about 06/21/2024. Patient is medically stable and will be discharged to short- term rehab Time Attestation Discharge Coordination Time (in mins): 33 Quality: Safe Use of Opioids Does Pt have an Active Cancer Diagnosis on the Problem List?: No Quality: Stroke Does the patient have a stroke diagnosis?: No Physical Exam Vital Signs: Vital Signs: Last Vital Signs Temp 99.3 F 06/11/24 08:00 Pulse 72 06/11/24 08:00 Resp 17 06/11/24 08:00 BP 156/68 H 06/11/24 08:00 Pulse Ox 94 06/11/24 08:00 O2 Del Method Room Air 06/11/24 08:00 O2 Flow Rate 1 06/08/24 12:00 Oxygen Flow Rate 1 06/07/24 15:00 alert, no acute distress, poor insight DS: Data Data Completed and Pending Labs on day of discharge: Laboratory Results - last 24 hr 06/11/24 07:13 WBC 7.2 RBC 2.74 L Hgb 8.2 L Hct 26.0 L MCV 94.9 MCH 29.9 MCHC 31.5 RDW 15.5 Plt Count 314 D MPV 10.0 Absolute Nucleated RBC 0.000 Nucleated RBC % (auto) 0.0 Sodium 139 Potassium 3.6 Chloride 107 Carbon Dioxide 25 Anion Gap 11 L BUN 6 L Creatinine 0.77 Estim Creat Clear Calc 66.6 Estimated GFR > 60 Fasting Glucose 94 Calcium 8.3 L D Discharge Plan Discharge Anticipated Discharge Date/Time: 06/11/24 09:25 Patient Disposition: Xfer SNF Discharge Diagnosis: gi bleed Referrals: [facility] [Outside] - 1 Day (SHORT TERM REHAB) Annie Ulrich MD [Primary Care Provider] - 1 Week Discharge Medications: New ferrous sulfate 324 mg (65 mg iron) Tablet,Delayed Release (Dr/Ec) 324 mg PO BIDWM Qty: 0 0RF Continued nystatin 100,000 unit/gram Powder 1 appl topical TID Qty: 0 0RF Protocol: Apply to: Apply to: affected areas acetaminophen 325 mg Tablet 650 mg PO Q4H PRN (Reason: Fever) docusate sodium 100 mg Capsule 100 mg PO BID sennosides [senna] 8.6 mg Tablet 8.6 mg PO BID trazodone 50 mg Tablet 50 mg PO BEDTIME PRN (Reason: Insomnia) Rx Instructions: MRX1 as needed nicotine (polacrilex) 2 mg Gum 2 mg BUCCAL Q2H PRN (Reason: Nicotine Cravings) magnesium hydroxide [Milk of Magnesia] 400 mg/5 mL Suspension 30 ml PO DAILY PRN (Reason: Constipation) omeprazole 20 mg Capsule,Delayed Release(Dr/Ec) 20 mg PO BID hydroxyzine HCl 25 mg Tablet 25 mg PO Q6H PRN (Reason: Anxiety) bupropion HCl 300 mg tablet extended release 24 hr 300 mg PO DAILY@0900 quetiapine 25 mg tablet 25 mg PO DAILY sertraline 50 mg tablet 150 mg PO DAILY Discharge Orders: Discharge Order (Routine); Ordered 06/11/24 Ordered By: Colin Bashir Diet: Advance to usual diet Activity on Discharge: As tolerated Stand Alone Forms: Patient Portal Discharge page Print Language: Portuguese Care Plan Goals: manage gi bleed Health Concerns: gi bleed Plan of Treatment: monitor for bleeding, if rebleeds and medical care desired would recommend transfer to tertiary center with capability to manage small bowel bleeds Assessment: see above
--- NOTE | 2024-06-11 11:44 | P.PNIM_ITS ---
Subjective Subjective Date of Service: 06/11/24 Interval History: no active complaints, but poor insight into medical conditions Physical Exam 2 Vital Signs: Vital Signs: Last Vital Signs Temp 99.3 F 06/11/24 08:00 Pulse 72 06/11/24 08:00 Resp 17 06/11/24 08:00 BP 156/68 H 06/11/24 08:00 Pulse Ox 94 06/11/24 08:00 O2 Del Method Room Air 06/11/24 08:00 O2 Flow Rate 1 06/08/24 12:00 Oxygen Flow Rate 1 06/07/24 15:00 alert, no acute distress, poor insight Objective Data Active Medications Acetaminophen (Acetaminophen 325 Mg Tablet) 650 mg PO Q6H PRN PRN Reason: Pain, Mild (Pain Scale 1-3), fever or headache Last Admin: 06/04/24 22:15 Dose: 650 mg Documented By: BREANNA Bupropion HCl (Bupropion Hcl Xl 300 Mg Tab.Er.24h) 300 mg PO DAILY@0900 [facility] Last Admin: 06/11/24 08:59 Dose: 300 mg Documented By: EBENEZER Docusate Sodium (Docusate Sodium 100 Mg Capsule) 100 mg PO BID [facility] Last Admin: 06/11/24 08:59 Dose: 100 mg Documented By: EBENEZER Ferrous Sulfate (Ferrous Sulfate 324 Mg Tablet.) 324 mg PO BIDWM [facility] Last Admin: 06/11/24 09:00 Dose: 324 mg Documented By: EBENEZER Hydroxyzine HCl (Hydroxyzine Hcl 25 Mg Tablet) 25 mg PO Q6H PRN PRN Reason: Anxiety Magnesium Hydroxide (Milk Of Magnesia 30 Ml Oral.Susp) 30 ml PO DAILY PRN PRN Reason: Constipation Naloxone HCl (Naloxone Hcl 0.4 Mg/Ml Vial) 0.04 mg IVPUSH Q5M PRN PRN Reason: Excessive sedation or RR < 8 Nicotine Polacrilex (Nicotine Polacrilex 2 Mg Gum) 2 mg BUCCAL Q2H PRN PRN Reason: Nicotine Cravings Omeprazole (Omeprazole 40 Mg Capsule.) 40 mg PO DAILY@0630 [facility] Last Admin: 06/11/24 04:02 Dose: 40 mg Documented By: SYMONE Ondansetron HCl (Ondansetron Hcl 4 Mg/2 Ml Vial) 4 mg IVPUSH Q8H PRN PRN Reason: Nausea and Vomiting Last Admin: 06/03/24 14:55 Dose: 4 mg Documented By: LAURITA Quetiapine Fumarate (Quetiapine Fumarate 25 Mg Tablet) 25 mg PO DAILY [facility] Last Admin: 06/11/24 09:00 Dose: 25 mg Documented By: EBENEZER Senna (Sennosides 8.6 Mg Tablet) 8.6 mg PO BID [facility] Last Admin: 06/11/24 09:00 Dose: 8.6 mg Documented By: EBENEZER Sertraline HCl (Sertraline Hcl 50 Mg Tablet) 150 mg PO DAILY [facility] Last Admin: 06/11/24 08:59 Dose: 150 mg Documented By: EBENEZER Sodium Chloride (0.9 % Sodium Chloride Flush 3 Ml Syringe) 3 ml IVFLUSH QSHIFT [facility] Last Admin: 06/11/24 09:00 Dose: 3 ml Documented By: EBENEZER Trazodone HCl (Trazodone Hcl 50 Mg Tablet) 50 mg PO BEDTIME PRN PRN Reason: Insomnia Last Admin: 06/09/24 22:18 Dose: 50 mg Documented By: BREALAMJesus Labs 06/11/24 07:13 06/11/24 07:13 Labs: Laboratory Results - last 24 hr 06/11/24 07:13 MCV 94.9 MCH 29.9 MCHC 31.5 RDW 15.5 Plt Count 314 D MPV 10.0 Absolute Nucleated RBC 0.000 Nucleated RBC % (auto) 0.0 Anion Gap 11 L Estim Creat Clear Calc 66.6 Estimated GFR > 60 Fasting Glucose 94 Calcium 8.3 L D Assessment and Plan (1) Lower GI bleed: Status: Acute (2) Major neurocognitive disorder: Status: Acute Plan 78F H uspecified dementia with recent bimalleolar fx s/p ORIF 05/13/24, discharged from [facility] 05/18/24, sent to [facility] for SI on 05/28/24, and admitted to [facility] psych 05/30/24. Developed acute GI bleed. Had been on prophylactic UFH for DVT ppx with plan to transition to ASA upon discharge from rehab. Suspected source: proximal jejunum. Acute blood loss anemia due to GIB heparin and ASA on hold Stat CTA done 05/30 to identify source of bleeding showing active proximal jejunum bleed; by the time read, it was too late for IR embolization EGD/enteroscopy 06/[address] Paige, no acute bleed, Hiatal hernia and gastritis, No ulcers, no visible vessel, no AVM's Repeat CTA 06/01, 06/03 with no active bleeding Transfused total of 7 units PRBC INR + FBG normal, so no DIC. HH down 06/05, reconsulted GI > nothing more to do, if rebleed would need IR from tertiary care facility ultimately pts invoked HCP (plan for reeval today) has decided on no further intervention patient did allow blood draw today and hgb stable between 8 and 9 Dementia mood disorder patient has hx of expressing passive SI without any active plans or gestures R bimalleolar fx sp ORIF 05/13/24 per [facility] records, OOB with PT; foot flat TDWB RLE for 6 weeks VTE ppx SCDs; no heparin given bleeding DNR/DNI dispo eventually resume STR 06/10 patient reevalutated by psychiatry. still recommending HCP invoked for most medical decisions, though, can defer to patient for very simple decisions that she demonstrates understanding for. 06/06 confirmed with HCP and patient - they do not want any further lab draws, testing, treatment or blood transfusions; signed MOLST form DNR/DNI; CM following for discharge planning likely STR. currently awake, alert and comfortable but if change in condition may be appropriate for GIP. 06/04 had a discussion with patient's partner regarding the H&H dropping and the fact that patient had a tarry stool. She reported that she wants to make the patient hospice, she stated that the patient told her this morning that she does not want anymore tests to be done. The patient's partner stated that the patient would have to be in a facility because she was unable to care for her at home because she was not ambulating. We will discuss with case management 06/03 Case was discussed with Dr Paige. He recommended transfer to [facility] or other tertiary care center where IR is on-call 28/01 in case she re-bleeds. But HCP/ Valentina adamantly refuses and doesn't want to talk to Dr Paige, either. counseled extensively on the risks of her bleeding again and the difficulty of managing an acute bleed without IR in our hospital until 06/08. She understands the risks but really feels that going to another hospital would be absolutely devastating for the pt and likely to precipitate an even worse psychiatric crisis. asked Valetnina what she would want us to do should the pt bleed again and she said to call her and she will decide in the moment. reiterated that if she were not to undergo any kind of intervention for bleeding, she would likely pass away in the hospital and would be better served by hospice/comfort care. Valentina stated that she wants to watch and wait and make a decision if that urgency arises. Quality Stroke Does the patient have a stroke diagnosis?: No VTE Prior VTE?: No VTE Risk Level:: Medical - moderate - high VTE Device Contraindication: N/A - Device Ordered VTE Drug Contraindication: Treatment Not Indicated
--- NOTE | 2024-06-11 12:27 | MHC.CM.PN ---
Addendum entered by Yenifer Stewart RN 06/11/24 15:44: CM RECEIVED MESSAGE FROM [facility] THAT THEY HAVE GIVEN RIDE TO [facility] THEY ARE DELAYED, [facility] WILL TRANSPORT AT SCHEDULED TIME OF 4:30PM. Addendum entered by Yenfier Stewart RN 06/11/24 13:18: CM RECEIVED A MESSAGE FROM [facility] THAT THEY HAVE UPDATED HNE AUTH AND PAS[facility] APPROVAL AND PT IS OKAY TO TRANSFER TODAY, CM CONTACTED [facility] WHO CAN TRANSPORT PT AT 4:30PM, CM CONTACTED PT'S TOR AT 1:10PM AT NUMBER ON FILE AND TOR AGREEABLE TO TRANSFER AND CM WILL UPDATE PT AND LET HER KNOW TOR WILL BE THERE EARLY TOMORROW MORNING. Original Note: IMM 06/11/24 DELIEVERED TO PT'S TOR AT BEDSIDE, PT AND TOR AWARE THAT FACILITY WILL NOT TAKE PT UNTIL TOMORROW 06/12, CM RECEIVED CALL FROM VENESSA AT [facility] OFFICE AT 12:20PM AND THAT SHE HAS UPLOADED PACKET TO PAS[facility] SITE, PER LIAISON FROM [facility] PT WILL NOT BE ADMITTED UNTIL TUESDAY 06/12 AND THEY WILL UPDATE PT'S HNE AUTH IN AM, CM HAS PREBBOKED PT FOR TRANSPORT W/[facility] AT 1:30PM ON 06/12. 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
[2024-06-12 03:47] VITALS: BP 124/72; PULSE 68; RESP 19; TEMP 36.9; O2SAT 94
[2024-06-12] MEDS: Omeprazole 40 MG CAPSULE.DR PO (05:08)
[2024-06-12] MEDS: Ferrous Sulfate 324 MG TABLET.DR PO (07:57)
[2024-06-12] MEDS: buPROPion HCl XL 300 MG TAB.ER.24H PO (07:57)
[2024-06-12] MEDS: Sertraline HCL 50 MG TABLET 150 MG PO (07:57)
[2024-06-12] MEDS: QUEtiapine Fumarate 25 MG TABLET PO (07:58)
[2024-06-12 08:00] VITALS: BP 125/66; PULSE 72; RESP 16; TEMP 36.2
--- NOTE | 2024-06-12 10:55 | MHC.CM.PN ---
Pt is medically cleared for discharge to [facility] at [facility] rehab. Pt will transport there via BLS/Gabriela today. Pts /HCP Valentina was called and updated on the discharge, she is in agreement with the plan and very thankful.
== END 2024-06-12 11:38 | disposition skilled nursing facility (03) | DRG 378 ==
PROVIDERS: Family Medicine; Internal Medicine; Nurse Practitioner Acute Care; Admitting Provider Student in an Organized Health Care Education/Training Program; PCP Internal Medicine; Visit Provider Internal Medicine
PROC: 0DJ08ZZ Inspection of Upper Intestinal Tract, Via Natural or Artificial Opening Endoscopic (ICD-10-PCS; principal; 2024-06-01 14:50)
DX: K29.71 Gastritis, unspecified, with bleeding (principal); D62 Acute posthemorrhagic anemia; R45.851 Suicidal ideations; F33.1 Major depressive disorder, recurrent, moderate; F03.93 Unspecified dementia, unspecified severity, with mood disturbance; Z66 Do not resuscitate; K44.9 Diaphragmatic hernia without obstruction or gangrene; Z87.891 Personal history of nicotine dependence; Z79.899 Other long term (current) drug therapy
CPT/HCPCS: 36415; 74178; 80048; 83540; 85014; 85018; 85025; 85027; 85379; 85384; 85610; 86850; 86900; 86901; 86923; 97163; 97530; J0330; J1100; J2003; J2060; J2405; J2470; J2598; J2704; J7120; P9016; Q9967; S9485

== ENCOUNTER → 2024-05-30 19:13 | Outpatient (BNV) | payer MEDICARE, SELFPAY | PROVIDERS: Admitting Provider Student in an Organized Health Care Education/Training Program; PCP Internal Medicine; Visit Provider Social Worker | DX: F03.90 Unspecified dementia, unspecified severity, without behavioral disturbance, psychotic disturbance, mood disturbance, and anxiety (principal); K92.2 Gastrointestinal hemorrhage, unspecified | CPT/HCPCS: 99232 ==

== ENCOUNTER → 2024-05-30 19:13 | Outpatient (BNV) | payer MEDICARE, SELFPAY | PROVIDERS: Admitting Provider Student in an Organized Health Care Education/Training Program; Visit Provider Student in an Organized Health Care Education/Training Program | DX: F03.93 Unspecified dementia, unspecified severity, with mood disturbance (principal); K92.2 Gastrointestinal hemorrhage, unspecified; D62 Acute posthemorrhagic anemia | CPT/HCPCS: 99232; 99239; 99499 ==